=== PATIENT | female | born 1955 | race Caucasian/White ===

== ENCOUNTER 2018-04-17 18:37 | Inpatient (IN) | payer BC ==
[2018-04-17] MEDS ORDERED: KETOROLAC 60 MG/2 ML VIAL IM STA (18:57)
[2018-04-17] MEDS ORDERED: HYDROcodone/APAP 5-325MG 1 EACH TAB PO STA (18:58)
[2018-04-17] MEDS ORDERED: ORPHENADRINE 30 MG/ML 2 ML VIAL IM STA (18:58)
--- NOTE | 2018-04-17 19:01 | ED ---
Fall HPI - General Source: patient, RN notes reviewed, old records reviewed Mode of arrival: EMS <Ana Jacinto - Last Filed: 04/18/18 00:58> <Linden Ramesh - Last Filed: 04/23/18 22:41> - General Chief Complaint: Fall Stated Complaint: fall Time Seen by Provider: 04/17/18 18:43 - History of Present Illness Initial Comments: 62-year-old female presents emergency Department chief complaint of bilateral rib pain. She was cleaning her hot tub and slipped and fell off of the seat of the hot tub and landed with her mid back hitting the edge of the seat of the hot tub. Patient states that the "wind was knocked out of her". Patient states that she has pain with movement in the mid back area. Patient states that it is painful to take a full deep breath. Patient reports that she did not hit her head or neck. She denies any extremity pain or injuries. Patient states that she has no abdominal pain or chest pain. Patient denies any other symptoms besides the bilateral rib pain and mid back pain. (Ana Jacinto) - Related Data Home Medications Medication Instructions Recorded Confirmed Loratadine [Claritin] 10 mg PO DAILY PRN 04/18/18 04/18/18 Previous Rx's Medication Instructions Recorded HYDROcodone/APAP 5-325MG [[place] 1 - 2 tab PO Q6HR PRN #30 tab 04/20/18 5-325] Ibuprofen [Motrin] 800 mg PO Q8HR #30 tab 04/20/18 Methocarbamol [Robaxin] 1,000 mg PO QID #40 tab 04/20/18 Allergies Allergy/AdvReac Type Severity Reaction Status Date / Time codeine Allergy Unknown Verified 04/18/18 10:19 Review of Systems ROS Other: All systems not noted in ROS Statement are negative. <Ana Jacinto - Last Filed: 04/18/18 00:58> ROS Other: All systems not noted in ROS Statement are negative. <Linden Ramesh - Last Filed: 04/23/18 22:41> ROS Statement: Those systems with pertinent positive or pertinent negative responses have been documented in the HPI. Past Medical History Past Medical History: No Reported History History of Any Multi-Drug Resistant Organisms: None Reported Past Surgical History: No Surgical Hx Reported Past Psychological History: No Psychological Hx Reported Smoking Status: Former smoker Past Alcohol Use History: Occasional Past Drug Use History: None Reported <Ana Jacinto - Last Filed: 04/18/18 00:58> General Exam Limitations: no limitations General appearance: alert, in no apparent distress Head exam: Present: atraumatic, normocephalic, normal inspection Eye exam: Present: normal appearance, PERRL, EOMI. Absent: scleral icterus, conjunctival injection, periorbital swelling ENT exam: Present: normal exam, mucous membranes moist Neck exam: Present: normal inspection. Absent: tenderness, meningismus, lymphadenopathy Respiratory exam: Present: normal lung sounds bilaterally, chest wall tenderness (Tenderness over bilateral lower ribs.). Absent: respiratory distress, wheezes, rales, rhonchi, stridor Cardiovascular Exam: Present: regular rate, normal rhythm, normal heart sounds. Absent: systolic murmur, diastolic murmur, rubs, gallop, clicks GI/Abdominal exam: Present: soft, normal bowel sounds. Absent: distended, tenderness, guarding, rebound, rigid Extremities exam: Present: normal inspection, full ROM, normal capillary refill. Absent: tenderness, pedal edema, joint swelling, calf tenderness Back exam: Present: normal inspection Neurological exam: Present: alert, oriented X3, CN II-XII intact Psychiatric exam: Present: normal affect, normal mood <Ana Jacinto - Last Filed: 04/18/18 00:58> <Linden Ramesh - Last Filed: 04/23/18 22:41> - General Exam Comments Initial Comments: 62-year-old female. Alert and oriented. Moderate discomfort. (Ana Jacinto) Course <Ana Jacinto - Last Filed: 04/18/18 00:58> <Linden Ramesh - Last Filed: 04/23/18 22:41> Vital Signs 04/17/18 04/17/18 04/17/18 18:41 20:00 21:49 Temperature 98.1 F Pulse Rate 64 65 78 Pulse Rate [ Pulse Oximetery ] Respiratory 16 20 18 Rate Blood Pressure 159/74 149/72 153/75 Blood Pressure [Left Arm] O2 Sat by Pulse 97 98 100 Oximetry 04/17/18 04/18/18 04/18/18 22:57 00:10 00:21 Temperature 97.8 F 98.6 F Pulse Rate 71 71 Pulse Rate [ 65 Pulse Oximetery ] Respiratory 18 18 16 Rate Blood Pressure 128/65 131/65 Blood Pressure 157/74 [Left Arm] O2 Sat by Pulse 98 100 98 Oximetry 04/18/18 01:08 Temperature Pulse Rate 66 Pulse Rate [ Pulse Oximetery ] Respiratory 18 Rate Blood Pressure 135/65 Blood Pressure [Left Arm] O2 Sat by Pulse 100 Oximetry - Reevaluation(s) Reevaluation #1: 04/17/18 20:39 Critical value continue treating the Patient is a 15% pneumothorax. (Ana Jacinto) Reevaluation #2: 04/17/18 21:40 is transferred to trauma unit, was evaluated by on-call surgeon Dr. porras. He wants us to contact cardiothoracic surgery. (Ana Jacinto) Procedures - Chest Tube Insertion Side of Procedure: right Indication: Pneumothorax Placed on monitor/pulse oximetry: Yes Site Prep: Chloroprep Local Anesthesia: Lidocaine 1% Amount (mLs): 10 Insertion Site: Other (2nd intercostal space) Scalpel: #11 Repeat X-ray Results: Lung Inflated Patient Tolerated Procedure: well <Ana Jacinto - Last Filed: 04/18/18 00:58> - Chest Tube Insertion Consent Obtained: written consent Time Out Performed: Yes Side of Procedure: right Indication: Pneumothorax Placed on monitor/pulse oximetry: Yes Site Prep: Chloroprep Local Anesthesia: Lidocaine 1% Insertion Site: Other Scalpel: #11 Tube Size (Khmer): Other (Thoravent) Returns: Air Attached to Suction: Yes Type of Suction: Pleuravac Repeat X-ray Results: Lung Inflated Patient Tolerated Procedure: well <Linden Ramesh - Last Filed: 04/23/18 22:41> Medical Decision Making - Lab Data Result diagrams: 04/17/18 20:48 04/17/18 20:48 - Radiology Data Radiology results: report reviewed <Ana Jacinto - Last Filed: 04/18/18 00:58> - Lab Data Result diagrams: 04/17/18 20:48 04/17/18 20:48 <Linden Ramesh - Last Filed: 04/23/18 22:41> - Medical Decision Making Patient is a 62-year-old female presents emergency Department after she slipped and fell in a hot tub. Her mid back hit the seat of the hot tub. Patient has significant pain and tenderness over the right ribs. Patient chest x-ray shows a 15% pneumothorax. A stretcher in the trauma bay and I discussed case Dr. Sandoval. We then discussed with on-call surgeon Dr. porras also evaluated the Patient. He wanted a CT abdomen and pelvis. CT abdomen and pelvis shows evidence of comminuted ninth rib fracture and again the 15% pneumothorax. We consulted the cardio thoracic surgeon. Recommended a Thoravent. Dr. Ramesh placed thoravent. Patient was admitted to Dr. Son with consults to Dr. García, cardiothoracic surgery. (Ana Jacinto) I assisted in managing this case by placing the thoravent tube. Head discussion of risks and benefits as well as indications. Patient gives consent. Anterior chest wall is prepped and draped. Small spencer in the skin made with # 11 scalpel. Needle introduced in the second intercostal space midclavicular line, in the standard fashion. When the indicator changed to indicate entry, the catheter advanced while the needle withdrawn. Tube secured. Patient tolerated procedure well. Post placement x-ray reviewed. The tube then ordered to suction, through the Pleur-evac unit, to raise the lung. Patient admitted. (Linden Ramesh) - Lab Data Lab Results 04/17/18 04/17/18 Range/Units 20:48 20:48 WBC 12.6 H (3.8-10.6) k/uL RBC 4.82 (3.80-5.40) m/uL Hgb 15.6 (11.4-16.0) gm/dL Hct 45.1 (34.0-46.0) % MCV 93.6 (80.0-100.0) fL MCH 32.3 (25.0-35.0) pg MCHC 34.5 (31.0-37.0) g/dL RDW 13.4 (11.5-15.5) % Plt Count 214 (150-450) k/uL Neutrophils % 87 % Lymphocytes % 7 % Monocytes % 5 % Eosinophils % 1 % Basophils % 0 % Neutrophils # 11.0 H (1.3-7.7) k/uL Lymphocytes # 0.8 L (1.0-4.8) k/uL Monocytes # 0.6 (0-1.0) k/uL Eosinophils # 0.1 (0-0.7) k/uL Basophils # 0.0 (0-0.2) k/uL Sodium 143 (137-145) mmol/L Potassium 4.6 (3.5-5.1) mmol/L Chloride 105 (98-107) mmol/L Carbon Dioxide 24 (22-30) mmol/L Anion Gap 14 mmol/L BUN 12 (7-17) mg/dL Creatinine 0.65 (0.52-1.04) mg/dL Est GFR (CKD-EPI)AfAm >90 (>60 ml/min/1.73 sqM) Est GFR (CKD-EPI)NonAf >90 (>60 ml/min/1.73 sqM) Glucose 148 H (74-99) mg/dL Calcium 9.3 (8.4-10.2) mg/dL Total Bilirubin 0.6 (0.2-1.3) mg/dL AST 38 H (14-36) U/L ALT 32 (9-52) U/L Alkaline Phosphatase 44 (38-126) U/L Total Protein 7.1 (6.3-8.2) g/dL Albumin 4.2 (3.5-5.0) g/dL 04/17/18 21:59 EKG shows normal sinus rhythm, normal EKG. Ventricular rate of 72 bpm. Was 136. QRS ration 82. QT QTc is 410/448. (Ana Jacinto) - Radiology Data Thoracic spine X-ray shows no fractures. Right-sided pneumothorax estimated 15%. Chest x-ray and rib x-ray shows acute right-sided pneumothorax estimated 15%. Would advise follow-up S to further characterize over time. Comminuted ninth rib fracture. Mild right-sided pneumothorax. No evidence of traumatic injuries in the abdomen pelvis patchy atelectasis in the right lung. Exam discussed at 10:30 PM. After for a VAC placement x-ray shows no evidence of 5% pneumothorax. (Ana Jacinto) Disposition Is patient prescribed a controlled substance at d/c from ED?: No When asked, does pt state using other controlled substances?: No If prescribed controlled substance>3 days was MAPS reviewed?: No If opioid is for acute pain is fill amount 7 days or less?: No If Rx opioid, was Start Talking consent form obtained?: No Time of Disposition: 23:42 <Ana Jacinto - Last Filed: 04/18/18 00:58> <Linden Ramesh - Last Filed: 04/23/18 22:41> Clinical Impression: Pneumothorax on right, Fall, Rib fracture Disposition: ADMITTED IP TO THIS HOSP Condition: Good
--- NOTE | 2018-04-17 20:34 | XR ---
PROCEDURE: XR ribs bilat w iker chest xray, total 9 views DATE AND TIME: 04/17/2018 8:00 PM REFERRING PHYSICIAN: Ana Jacinto CLINICAL INDICATION: PHH, Pain after trauma TECHNIQUE: Total 9 views. COMPARISON: None FINDINGS: There is a right-sided pneumothorax estimated at approximately 15%. There is no right-sided pleural effusion. There is no definite right-sided fracture. Results discussed with the ordering pro vider, in order to ensure intact communications. Remainder of the skeletal structures are negative for fracture or malalignment. No other radiographic findings. IMPRESSION: Acute right-sided pneumothorax, estimated at 15% at this time. Would advise follow-up radiographs to further characterize over time.
--- NOTE | 2018-04-17 20:36 | XR ---
PROCEDURE: XR thoracic spine - 4V DATE AND TIME: 04/17/2018 8:01 PM REFERRING PHYSICIAN: Ana Jacinto CLINICAL INDICATION: PHH, fall TECHNIQUE: Department protocol. COMPARISON: None FINDINGS: There is a right-sided pneumothorax, estimated at approximately 15%. This result was called to the ordering provider just now, in order to ensure intact indications. There is no evident spinal fracture or malalignment. Remainder of the visualized skeletal structures are negative for acute findings. The soft tissues are unremarkable. IMPRESSION: Right-sided pneumothorax, estimated at 15%.
[2018-04-17] MEDS ORDERED: RX INFO: IV CONTRAST WAS GIVEN 1 EACH MISC MISCELLANE PRN (21:38)
[2018-04-17 22:09] LABS: Basophils % (A) 0 %; Eosinophils # (A) 0.1 k/uL (0-0.7); Eosinophils % (A) 1 %; HCT 45.1 % (34.0-46.0); HGB 15.6 gm/dL (11.4-16.0); Lymphocytes # (A) 0.8 k/uL (1.0-4.8); Lymphocytes % (A) 7 %; MCH 32.3 pg (25.0-35.0); MCHC 34.5 g/dL (31.0-37.0); MCV 93.6 fL (80.0-100.0); Monocytes # (A) 0.6 k/uL (0-1.0); Monocytes % (A) 5 %; Neutrophils % (A) 87 %; Platelet Count 214 k/uL (150-450); RBC 4.82 m/uL (3.80-5.40); RDW 13.4 % (11.5-15.5); WBC 12.6 k/uL (3.8-10.6)
[2018-04-17 22:17] LABS: Albumin 4.2 g/dL (3.5-5.0); Anion Gap 14 mmol/L; Calcium 9.3 mg/dL (8.4-10.2); Carbon Dioxide 24 mmol/L (22-30); Chloride 105 mmol/L (98-107); Glucose 148 mg/dL (74-99); Sodium 143 mmol/L (137-145); Total Bilirubin 0.6 mg/dL (0.2-1.3); Total Protein 7.1 g/dL (6.3-8.2)
[2018-04-17 22:18] LABS: ALT 32 U/L (9-52); AST 38 U/L (14-36); Alkaline Phosphatase 44 U/L (38-126); Blood Urea Nitrogen 12 mg/dL (7-17); Potassium 4.6 mmol/L (3.5-5.1)
--- NOTE | 2018-04-17 22:34 | CT ---
EXAMINATION TYPE: CT ChestAbdPelvis w con DATE OF EXAM: 04/17/2018 COMPARISON: NONE HISTORY: Right side abdominal pain after fall injury CT DLP: 1618 mGycm Automated exposure control for dose reduction was used. CONTRAST: CT scan of the chest, abdomen and pelvis is performed without Oral Contrast and with IV Contrast, pat ient injected with 100 mL of Isovue 300. FINDINGS: There is a right-sided pneumothorax of approximately 15%. There is atelectasis at the right posterior lung base and also at the right lung apex. The left lung is clear of consolidation. There is no pleu ral effusion. Heart size is normal. Thoracic aorta is intact. There is no evidence of aneurysm or dis section. There is no evidence of leakage. There is no pericardial effusion. There are no hilar masses . There is 9 mm cyst in the superior right lobe of the liver. Gallbladder appears normal. Bile ducts ar e not dilated. Spleen and pancreas appear normal. There is no adrenal mass. Kidneys show satisfactory contrast opacification. There is no hydronephrosis. There is no free fluid in the abdomen. Bladder d istends smoothly. I see no intestinal wall thickening. There are no dilated loops. There is no sign o f pneumoperitoneum. Thoracic and lumbar spine appear intact. The clavicles appear intact. There is no ndisplaced comminuted fracture right posterior ninth rib. IMPRESSION: Comminuted posterior right ninth rib fracture. Mild right-sided pneumothorax. No evidence of traumatic injury within the abdomen and pelvis. Patchy atelectasis in the right lung. This exam w as discussed with ER physician at 10:30 PM.
[2018-04-17] MEDS ORDERED: NALOXONE 0.4 MG/ML 1 ML VIAL IV PRN (23:43)
[2018-04-17] MEDS ORDERED: MORPHINE SULFATE 4 MG/ML SYRINGE IV PRN (23:43)
[2018-04-17] MEDS ORDERED: ACETAMINOPHEN TAB 325 MG TAB PO PRN (23:43)
[2018-04-17] MEDS ORDERED: LORazepam 2 MG/ML INJ IV PRN (23:43)
[2018-04-17] MEDS ORDERED: IBUPROFEN 400 MG TAB PO PRN (23:43)
--- NOTE | 2018-04-18 00:46 | XR ---
EXAMINATION TYPE: XR chest 1V portable DATE OF EXAM: 04/18/2018 COMPARISON: 4 hours ago HISTORY: Pneumothorax TECHNIQUE: Single frontal view of the chest is obtained. FINDINGS: There is a right-sided chest tube that appears in good position. There is small right apic al pneumothorax. Trachea is midline. Heart and mediastinum are normal. There is no sign of pleural ef fusion. There are chest leads. IMPRESSION: There is small right apical pneumothorax of approximately 5% that is less than last exam .
[2018-04-18] MEDS: HYDROcodone/APAP 5-325MG 1 EACH TAB PO PRN ×2 (01:59→15:38)
[2018-04-18] MEDS: KETOROLAC 30 MG/ML 1 ML VIAL IVP PRN ×2 (02:00→08:19)
[2018-04-18] MEDS: SODIUM CHLORIDE 0.9% 1,000 ML IV SCH ×3 (02:00→19:11)
--- NOTE | 2018-04-18 07:03 | P.GSCN ---
History of Present Illness Consult date: 04/18/18 Reason for Consult: Right-sided traumatic pneumothorax, status post thoravent placement by the emergency room physicians Requesting physician: Ana Jacinto History of present illness: This is a 62-year-old female patient who does not follow with a primary care physician on a regular basis. She has no documented medical history except previous tobacco dependence, she quit smoking 5 years ago. She was at home cleaning her hot tub, fell and hit her back, and developed severe back pain with shortness of breath. She presented to the emergency room at [facility] and was found to have a ninth rib fracture as well as a right-sided pneumothorax, approximately 15%. A thoravent was placed in the emergency room with almost complete resolution of her pneumothorax. She was admitted for thoravent management and pain control. Dr. García from cardiothoracic surgery was consulted for management. Review of Systems 14 point review of systems was completed and was negative except as noted. 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, 2002 LUMPECTOMY RIGHT BREAST Past Psychological History: No Psychological Hx Reported Smoking Status: Former smoker Past Alcohol Use History: Occasional Past Drug Use History: None Reported Medications and Allergies Home Medications Medication Instructions Recorded Confirmed Type Loratadine [Claritin] 10 mg PO DAILY PRN 04/18/18 04/18/18 History Allergies Allergy/AdvReac Type Severity Reaction Status Date / Time codeine Allergy Unknown Verified 04/18/18 10:19 Surgical - Exam Vital Signs Temp Pulse Resp BP Pulse Ox 98.1 F 64 16 159/74 97 04/17/18 18:41 04/17/18 18:41 04/17/18 18:41 04/17/18 18:41 04/17/18 18:41 - General well developed, well nourished, no distress, moderate pain, obese - Eyes PERRL, normal ocular movement - ENT no hearing loss - Neck no masses, no bruits, trachea midline - Respiratory Lungs sounds clear bilaterally. Respirations even, nonlabored. Currently on 2 L nasal cannula with oxygen saturation 98%. Right-sided thoravent in place, connected to Pleur-evac to -20 m wall suction. No drainage in the Pleur-evac. No air leak currently present. - Cardiovascular S1, S2 present. Regular rate and rhythm. Normal sinus rhythm on EKG. Palpable peripheral pulses bilaterally. No edema present. No calf pain or tenderness noted. - Abdomen Abdomen: soft, non tender, bowel sounds - Genitourinary Deferred - Rectum Deferred - Integumentary Skin is warm and dry with evidence of good perfusion. - Neurologic normal coordination, normal sensation - Psychiatric oriented to time, oriented to person, oriented to place, speech is normal, memory intact Results - Labs 04/17/18 20:48 04/17/18 20:48 Abnormal Lab Results - Last 24 Hours (Table) 04/17/18 04/17/18 Range/Units 20:48 20:48 WBC 12.6 H (3.8-10.6) k/uL Neutrophils # 11.0 H (1.3-7.7) k/uL Lymphocytes # 0.8 L (1.0-4.8) k/uL Glucose 148 H (74-99) mg/dL AST 38 H (14-36) U/L Diabetes panel 04/17/18 Range/Units 20:48 Sodium 143 (137-145) mmol/L Potassium 4.6 (3.5-5.1) mmol/L Chloride 105 (98-107) mmol/L Carbon Dioxide 24 (22-30) mmol/L BUN 12 (7-17) mg/dL Creatinine 0.65 (0.52-1.04) mg/dL Glucose 148 H (74-99) mg/dL Calcium 9.3 (8.4-10.2) mg/dL AST 38 H (14-36) U/L ALT 32 (9-52) U/L Alkaline Phosphatase 44 (38-126) U/L Total Protein 7.1 (6.3-8.2) g/dL Albumin 4.2 (3.5-5.0) g/dL Calcium panel 04/17/18 Range/Units 20:48 Calcium 9.3 (8.4-10.2) mg/dL Albumin 4.2 (3.5-5.0) g/dL Pituitary panel 04/17/18 Range/Units 20:48 Sodium 143 (137-145) mmol/L Potassium 4.6 (3.5-5.1) mmol/L Chloride 105 (98-107) mmol/L Carbon Dioxide 24 (22-30) mmol/L BUN 12 (7-17) mg/dL Creatinine 0.65 (0.52-1.04) mg/dL Glucose 148 H (74-99) mg/dL Calcium 9.3 (8.4-10.2) mg/dL Adrenal panel 04/17/18 Range/Units 20:48 Sodium 143 (137-145) mmol/L Potassium 4.6 (3.5-5.1) mmol/L Chloride 105 (98-107) mmol/L Carbon Dioxide 24 (22-30) mmol/L BUN 12 (7-17) mg/dL Creatinine 0.65 (0.52-1.04) mg/dL Glucose 148 H (74-99) mg/dL Calcium 9.3 (8.4-10.2) mg/dL Total Bilirubin 0.6 (0.2-1.3) mg/dL AST 38 H (14-36) U/L ALT 32 (9-52) U/L Alkaline Phosphatase 44 (38-126) U/L Total Protein 7.1 (6.3-8.2) g/dL Albumin 4.2 (3.5-5.0) g/dL - Imaging Chest x-ray: report reviewed, image reviewed CT scan - abdomen: report reviewed, image reviewed CT scan - chest: report reviewed, image reviewed CT scan - pelvis: report reviewed, image reviewed EKG: image reviewed Assessment and Plan (1) Fall Current Visit: Yes Status: Acute Code(s): W19.XXXA - UNSPECIFIED FALL, INITIAL ENCOUNTER SNOMED Code(s): 8750258 (2) Pneumothorax on right Current Visit: Yes Status: Acute Code(s): J93.9 - PNEUMOTHORAX, UNSPECIFIED SNOMED Code(s): 335304831 (3) Rib fracture Current Visit: Yes Status: Acute Code(s): S22.39XA - FRACTURE OF ONE RIB, UNSP SIDE, INIT FOR CLOS FX SNOMED Code(s): 72104915 Plan: The patient was seen and examined at the bedside. Chart/diagnostics were reviewed. At this time we will discontinue atrium, cap thoravent. Will repeat chest x-ray. When there is complete resolution of her pneumothorax we will discontinue the thoravent. Pain management per ordered medications. Incentive spirometry ordered and should be encouraged 10 times every hour. Encourage continued smoking cessation. SCDs ordered for DVT prophylaxis. We will continue to monitor and follow closely. Thank you for this consult. Please call if you have any questions. Time with Patient: Greater than 30
[2018-04-18] MEDS: PANTOPRAZOLE 40 MG/10 ML VIAL IV SCH (08:14)
--- NOTE | 2018-04-18 08:36 | XR ---
EXAMINATION TYPE: XR chest 2V DATE OF EXAM: 04/18/2018 COMPARISON: Prior chest 04/18/2018 HISTORY: Chest tube, pneumothorax TECHNIQUE: Frontal and lateral views of the chest are obtained. FINDINGS: Right-sided chest tube is in place. Small apical pneumothorax persists. No sizable effusio n. Cardiomediastinal silhouette, pulmonary vascularity and jac within normal limits. IMPRESSION: Similar findings to prior exam. Small right apical pneumothorax, right-sided chest tube.
--- NOTE | 2018-04-18 13:26 | P.GSHP ---
History of Present Illness H&P Date: 04/17/18 (Patient seen at 2100 on 04/17) Chief Complaint: Fall from standing This is a 62-year-old female who presented to the emergency room after a fall which she hit her right flank on the way down on her hot tub or she was draining it. She denies any head trauma. She denies any loss of consciousness. GCS of 15. She was evaluated by the ER physician as she is complaining of right flank pain and cramping. On chest x-ray she was noted to have a 15% right-sided pneumothorax. No other injuries were noted at that time. 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 No significant issues noted on an osteopathic structural exam other than those noted in the History and Physical/Consult. Vital Signs Temp Pulse Resp BP Pulse Ox 98.1 F 64 16 159/74 97 04/17/18 18:41 04/17/18 18:41 04/17/18 18:41 04/17/18 18:41 04/17/18 18:41 - General well developed, well nourished, no distress - ENT normal mucosa - Neck trachea midline - Respiratory normal expansion, normal respiratory effort - Cardiovascular Distal pulses palpable for extremities Rhythm: regular - Abdomen Abdomen: soft, non tender - Neurologic normal coordination, normal sensation - Psychiatric oriented to time, oriented to person, oriented to place, memory intact Results - Labs 04/17/18 20:48 04/17/18 20:48 Abnormal Lab Results - Last 24 Hours (Table) 04/17/18 04/17/18 Range/Units 20:48 20:48 WBC 12.6 H (3.8-10.6) k/uL Neutrophils # 11.0 H (1.3-7.7) k/uL Lymphocytes # 0.8 L (1.0-4.8) k/uL Glucose 148 H (74-99) mg/dL AST 38 H (14-36) U/L Diabetes panel 04/17/18 Range/Units 20:48 Sodium 143 (137-145) mmol/L Potassium 4.6 (3.5-5.1) mmol/L Chloride 105 (98-107) mmol/L Carbon Dioxide 24 (22-30) mmol/L BUN 12 (7-17) mg/dL Creatinine 0.65 (0.52-1.04) mg/dL Glucose 148 H (74-99) mg/dL Calcium 9.3 (8.4-10.2) mg/dL AST 38 H (14-36) U/L ALT 32 (9-52) U/L Alkaline Phosphatase 44 (38-126) U/L Total Protein 7.1 (6.3-8.2) g/dL Albumin 4.2 (3.5-5.0) g/dL Calcium panel 04/17/18 Range/Units 20:48 Calcium 9.3 (8.4-10.2) mg/dL Albumin 4.2 (3.5-5.0) g/dL Pituitary panel 04/17/18 Range/Units 20:48 Sodium 143 (137-145) mmol/L Potassium 4.6 (3.5-5.1) mmol/L Chloride 105 (98-107) mmol/L Carbon Dioxide 24 (22-30) mmol/L BUN 12 (7-17) mg/dL Creatinine 0.65 (0.52-1.04) mg/dL Glucose 148 H (74-99) mg/dL Calcium 9.3 (8.4-10.2) mg/dL Adrenal panel 04/17/18 Range/Units 20:48 Sodium 143 (137-145) mmol/L Potassium 4.6 (3.5-5.1) mmol/L Chloride 105 (98-107) mmol/L Carbon Dioxide 24 (22-30) mmol/L BUN 12 (7-17) mg/dL Creatinine 0.65 (0.52-1.04) mg/dL Glucose 148 H (74-99) mg/dL Calcium 9.3 (8.4-10.2) mg/dL Total Bilirubin 0.6 (0.2-1.3) mg/dL AST 38 H (14-36) U/L ALT 32 (9-52) U/L Alkaline Phosphatase 44 (38-126) U/L Total Protein 7.1 (6.3-8.2) g/dL Albumin 4.2 (3.5-5.0) g/dL - Imaging Chest x-ray: report reviewed, image reviewed Assessment and Plan Assessment: Fall from standing, right-sided pneumothorax Plan: I discussion with the patient the patient's and the ER physician regarding her workup. Recommended CT chest abdomen and pelvis to further evaluate for injury given that she's having right flank pain. ER physician to place thoravent. Cardiothoracic surgery consult regarding pneumothorax and chest tube/thoravent management
--- NOTE | 2018-04-18 13:31 | P.PN ---
Subjective Progress Note Date: 04/18/18 Principal diagnosis: Fall from standing Patient is doing well this morning she has small residual apical pneumothorax. Thoravent was placed last night by ER physician. She is sitting up in bed tolerating a regular diet. She complains of muscle spasms on her right flank. She's pulling 1 L on incentive spirometry. She is having some pain with coughing. She refused her [place] this morning. Objective - Vital Signs Vital signs: Vital Signs Temp 98.3 F 04/18/18 05:30 Pulse 69 04/18/18 05:30 Resp 16 04/18/18 05:30 BP 139/75 04/18/18 05:30 Pulse Ox 99 04/18/18 08:16 Intake & Output 04/17/18 04/18/18 04/18/18 18:59 06:59 18:59 Weight 86.183 kg Other: Voiding Method Toilet Toilet # Voids 1 - Constitutional General appearance: Present: cooperative - Respiratory Details: Nonlabored breathing - Cardiovascular Rhythm: regular - Gastrointestinal Gastrointestinal Comment(s): Soft nontender nondistended - Psychiatric Psychiatric: Present: A&O x's 3 - Labs CBC & Chem 7: 04/17/18 20:48 04/17/18 20:48 Labs: Abnormal Lab Results - Last 24 Hours (Table) 04/17/18 04/17/18 Range/Units 20:48 20:48 WBC 12.6 H (3.8-10.6) k/uL Neutrophils # 11.0 H (1.3-7.7) k/uL Lymphocytes # 0.8 L (1.0-4.8) k/uL Glucose 148 H (74-99) mg/dL AST 38 H (14-36) U/L Assessment and Plan Assessment: Right-sided posterior ninth rib fracture, pneumothorax status post thoravent placement Plan: Pain control via Toradol, [place], Robaxin. I discussed with the patient the importance of deep breathing coughing and incentive spirometry. I discussed with her that she should take her [place] if she's having pain while coughing or difficulty coughing. There is a small residual right apical pneumothorax. Thoravent and pneumothorax are being managed for CT surgery appreciate recommendations.
[2018-04-18] MEDS: METHOCARBAMOL 500 MG TAB PO PRN ×2 (15:17→21:10)
[2018-04-19] MEDS: HYDROcodone/APAP 5-325MG 1 EACH TAB PO PRN ×4 (00:50→18:17)
[2018-04-19] MEDS: SODIUM CHLORIDE 0.9% 1,000 ML IV SCH ×3 (06:00→20:18)
[2018-04-19] MEDS: METHOCARBAMOL 500 MG TAB PO PRN ×2 (06:03→14:56)
--- NOTE | 2018-04-19 07:46 | XR ---
EXAMINATION TYPE: XR chest 2V DATE OF EXAM: 04/19/2018 COMPARISON: Prior chest 04/18/2018 HISTORY: Right pneumothorax and chest tube TECHNIQUE: Frontal and lateral views of the chest are obtained. FINDINGS: Right-sided pleural drainage catheter is stable. Small apical pneumothorax persists. Minim al blunting of the posterior costophrenic angle is noted. No significant interval change. IMPRESSION: Stable right apical pneumothorax. There may be small effusion or basilar atelectasis, fo llow-up.
[2018-04-19] MEDS: LIDOCAINE 5% PATCH TOPICAL SCH (08:26)
[2018-04-19] MEDS: PANTOPRAZOLE 40 MG/10 ML VIAL IV SCH (08:26)
[2018-04-19] MEDS: KETOROLAC 30 MG/ML 1 ML VIAL IVP PRN ×2 (09:50→14:56)
--- NOTE | 2018-04-19 16:27 | P.PN ---
Subjective Progress Note Date: 04/19/18 Principal diagnosis: Fall from standing, right pneumothorax, right sided posterior ninth rib fracture , history of tobacco dependence quit 5 years ago. The patient was recently cleaning her hot tub and subsequently slipped and fell and landed on her back. She had complaints of shortness of breath and severe back pain post-fall. She presented to the emergency department here at [facility] and was subsequently diagnosed with a ninth rib fracture and a right sided pneumothorax. Subsequently a right Thoravent was placed in the emergency department with resolution of her pneumothorax. She is currently sitting up to the bedside chair, in no acute distress. She is complaining of episodes of back spasms to her right mid back. Denies any complaints of shortness of breath this time. Her right Thoravent tube remains in place to her anterior chest with no air leak present. She is achieving 1500 mL on her incentive spirometry, her oxygen saturations are 94% on room air. Objective - Vital Signs Vital signs: Vital Signs Temp 97.7 F 04/19/18 05:00 Pulse 64 04/19/18 05:00 Resp 16 04/19/18 05:00 BP 134/74 04/19/18 05:00 Pulse Ox 94 L 04/19/18 05:00 Intake & Output 04/18/18 04/19/18 04/19/18 18:59 06:59 18:59 Intake Total 1860 Balance 1860 Intake: Intake, IV Titration 1320 Amount Sodium Chloride 0.9% 1, 1320 000 ml @ 120 mls/hr IV . Q8H20M [facility] Rx#:[id number] Oral 540 Other: Voiding Method Toilet Toilet Toilet # Voids 3 1 - Constitutional General appearance: Present: cooperative, no acute distress, obese - Respiratory Details: Lung sounds are essentially clear throughout. Respirations are symmetrical and nonlabored. Oxygen saturation are 94% on room air. She is achieving 1500 mL on her incentive spirometry. - Cardiovascular Details: Regular rhythm and rate. S1 and S2 present, negative for S3, gallop or murmur. No edema present. - Gastrointestinal Gastrointestinal Comment(s): Abdomen is soft, nontender and nondistended. Active bowel sounds to all 4 abdominal quadrants. No guarding or rigidity. - Genitourinary Genitourinary Comment(s): Voiding clear yellow urine. - Integumentary Integumentary Comment(s): Skin is warm and dry. No clubbing or cyanosis present. No abnormal pigmentation or rash present. - Neurologic Neurologic: Present: CNII-XII intact - Musculoskeletal Musculoskeletal: Present: gait normal, strength equal bilaterally - Psychiatric Psychiatric: Present: A&O x's 3, appropriate affect, intact judgment & insight - Allied health notes Allied health notes reviewed: nursing - Labs CBC & Chem 7: 04/17/18 20:48 04/17/18 20:48 - Imaging and Cardiology Chest x-ray: report reviewed, image reviewed Assessment and Plan (1) Fall from standing Current Visit: Yes Status: Acute Code(s): W19.XXXA - UNSPECIFIED FALL, INITIAL ENCOUNTER SNOMED Code(s): 5690240 (2) Pneumothorax on right Current Visit: Yes Status: Acute Code(s): J93.9 - PNEUMOTHORAX, UNSPECIFIED SNOMED Code(s): 358004140 (3) Rib fracture Current Visit: Yes Status: Acute Code(s): S22.39XA - FRACTURE OF ONE RIB, UNSP SIDE, INIT FOR CLOS FX SNOMED Code(s): 89560224 Plan: 1. We keep her right Thoravent in place today capped. 2. Pain management per when necessary orders. 3. Encourage use of her incentive spirometry every hour while awake. 4. Increase activity as tolerated. 5. GI and DVT prophylaxis. 6. More recommendations to follow based on patient's clinical course. Time with Patient: Greater than 30
[2018-04-19] MEDS: ONDANSETRON 4 MG/2 ML VIAL IVP PRN (17:40)
[2018-04-19] MEDS: HEPARIN SODIUM,PORCINE 5,000 UNIT/ML 1 ML VIAL SQ SCH (20:42)
[2018-04-19 23:02] VITALS: RESP 16
--- NOTE | 2018-04-19 23:03 | P.PN ---
Subjective Principal diagnosis: Fall from standing right pneumothorax and rib fractures Patient is doing well this afternoon, pain is better controlled, she is pulling 1500 to 2000 on IS. tboravent is capped. Objective - Vital Signs Vital signs: Vital Signs Temp 98.3 F 04/19/18 15:00 Pulse 69 04/19/18 15:00 Resp 18 04/19/18 15:00 BP 141/71 04/19/18 15:00 Pulse Ox 95 04/19/18 15:00 Intake & Output 04/19/18 04/19/18 04/20/18 06:59 18:59 06:59 Intake Total 1860 80 Output Total 0 0 Balance 1860 0 80 Intake: IV 80 .9@20 80 Intake, IV Titration 1320 Amount Sodium Chloride 0.9% 1, 1320 000 ml @ 120 mls/hr IV . Q8H20M [facility] Rx#:[id number] Oral 540 Output: Chest Tube Drainage 0 0 Thora-Vent 0 0 Other: Voiding Method Toilet Toilet Toilet # Voids 1 3 - Constitutional General appearance: Present: average body habitus, cooperative - Respiratory Details: nonlabored - Cardiovascular Rhythm: regular - Gastrointestinal Gastrointestinal Comment(s): s/nt/nd - Psychiatric Psychiatric: Present: A&O x's 3 - Labs CBC & Chem 7: 04/17/18 20:48 04/17/18 20:48 Assessment and Plan Assessment: Right-sided posterior ninth rib fracture, pneumothorax status post thoravent placement Plan: Pain control via Toradol, [place], Robaxin.. Thoravent and pneumothorax are being managed for CT surgery appreciate recommendations.
[2018-04-20] MEDS: KETOROLAC 30 MG/ML 1 ML VIAL IVP PRN ×2 (00:19→06:47)
[2018-04-20] MEDS: HYDROcodone/APAP 5-325MG 1 EACH TAB PO PRN ×2 (00:20→05:51)
[2018-04-20] MEDS ORDERED: METHOCARBAMOL 500 MG TAB ONE (01:25)
[2018-04-20] MEDS: SODIUM CHLORIDE 0.9% 1,000 ML IV SCH ×2 (05:53→10:03)
[2018-04-20 06:18] VITALS: BP 105/64; PULSE 72; TEMP 98.2
[2018-04-20] MEDS: HEPARIN SODIUM,PORCINE 5,000 UNIT/ML 1 ML VIAL SQ SCH (07:26)
[2018-04-20] MEDS: ONDANSETRON 4 MG/2 ML VIAL IVP PRN (07:26)
[2018-04-20] MEDS: LIDOCAINE 5% PATCH TOPICAL SCH (07:26)
[2018-04-20] MEDS ORDERED: PANTOPRAZOLE 40 MG TABLET PO SCH (07:30)
--- NOTE | 2018-04-20 07:47 | XR ---
EXAMINATION TYPE: XR chest 2V DATE OF EXAM: 04/20/2018 COMPARISON: Prior chest 04/19/2018 HISTORY: Pneumothorax, chest tube TECHNIQUE: Frontal and lateral views of the chest are obtained. FINDINGS: Right-sided thoracic vent is present with appearance similar to prior exam. Small apical p neumothorax thought to have resolved, tip of the catheter courses posteriorly along the right chest w all. No pleural effusion. No significant interval change. IMPRESSION: Apical pneumothorax thought to have resolved. Chest tube in place.
--- NOTE | 2018-04-20 09:52 | P.PN ---
Subjective Progress Note Date: 04/20/18 Principal diagnosis: Right-sided pneumothorax, right-sided posterior ninth rib fracture, all from standing, previous tobacco dependence. POD #3 Thoravent placement by the emergency room physicians. Patient's currently ambulating in room in no acute distress. States pain is controlled on current pain medication. Denies shortness of breath. Objective - Vital Signs Vital signs: Vital Signs Temp 98.2 F 04/20/18 05:30 Pulse 72 04/20/18 05:30 Resp 16 04/20/18 05:30 BP 105/64 04/20/18 05:30 Pulse Ox 93 L 04/20/18 05:30 Intake & Output 04/19/18 04/20/18 04/20/18 18:59 06:59 18:59 Intake Total 240 Output Total 0 0 0 Balance 0 240 0 Intake: IV 240 .9@20 240 Output: Chest Tube Drainage 0 0 0 Thora-Vent 0 0 0 Other: Voiding Method Toilet Toilet # Voids 3 - Constitutional General appearance: Present: cooperative, no acute distress - Respiratory Details: Lungs sounds clear bilaterally. Respirations even, nonlabored. Currently on room air with oxygen saturation 93%. Right-sided thoravent present, no air leak present. - Cardiovascular Details: S1, S2 present. Regular rate and rhythm. Palpable peripheral pulses bilaterally. No edema present. No calf pain or tenderness noted. - Gastrointestinal Gastrointestinal Comment(s): Abdomen soft, nontender, nondistended. Active bowel sounds 4 quadrants. Tolerating diet. - Genitourinary Genitourinary Comment(s): Continues to void clear, yellow urine. - Integumentary Integumentary Comment(s): Skin is warm and dry with evidence of good perfusion. - Neurologic Neurologic: Present: CNII-XII intact - Musculoskeletal Musculoskeletal: Present: gait normal, strength equal bilaterally - Psychiatric Psychiatric: Present: A&O x's 3, appropriate affect, intact judgment & insight - Allied health notes Allied health notes reviewed: nursing - Labs CBC & Chem 7: 04/17/18 20:48 04/17/18 20:48 - Imaging and Cardiology Chest x-ray: report reviewed, image reviewed Assessment and Plan (1) Fall Current Visit: Yes Status: Acute Code(s): W19.XXXA - UNSPECIFIED FALL, INITIAL ENCOUNTER SNOMED Code(s): 9772129 (2) Pneumothorax on right Current Visit: Yes Status: Acute Code(s): J93.9 - PNEUMOTHORAX, UNSPECIFIED SNOMED Code(s): 896083061 (3) Rib fracture Current Visit: Yes Status: Acute Code(s): S22.39XA - FRACTURE OF ONE RIB, UNSP SIDE, INIT FOR CLOS FX SNOMED Code(s): 25027017 Plan: 1. Thoravent removed this morning. Dressing applied. Patient should leave the dressing in place for 48 hours. No lifting greater than 5-10 pounds for the next couple of weeks. 2. Encourage continued incentive spirometry use 10 times every hour while awake. 3. Encourage continued smoking cessation. 4. Pain management, medical management per primary care service. 5. Patient may be discharged to home from our standpoint. Time with Patient: Greater than 30
[2018-04-20] MEDS ORDERED: MORPHINE ORAL SOLN 10 MG/5 ML CUP PO PRN (10:14)
--- NOTE | 2018-04-20 12:26 | P.DS ---
Providers Date of admission: 04/17/18 23:16 Attending physician: Adi Elena DO Consults: 04/17/18 23:43 Consult Physician Stat Consulting Provider: Jn García Reason/Comments: Right Pneumothorax Do you want consulting provider notified?: Yes, Notify in am Primary care physician: Stated None Hospital Course: Patient presented to the hospital after a fall hitting her right flank. She was found to have pneumothorax and fractured rib on that side. Thoravent was placed in ED and CT surgery was consulted. Patient was admitted for pain control and pneumothorax. On 04/20/18 patient was tolerating regular diet, pain was well controlled on PO meds and thoravent was removed per CT surgery. She was cleared for discharge per CT surgery and was discharged home in stable condition with instructions to follow up in 1-2 weeks or as needed. She was told to return to hospital if she experiences chest pain or SOB. / Patient Condition at Discharge: Good Plan - Discharge Summary Discharge Rx Participant: No New Discharge Prescriptions: New HYDROcodone/APAP 5-325MG [[place] 5-325] 1 - 2 tab PO Q6HR PRN #30 tab PRN Reason: Pain Ibuprofen [Motrin] 800 mg PO Q8HR #30 tab Methocarbamol [Robaxin] 1,000 mg PO QID #40 tab No Action Loratadine [Claritin] 10 mg PO DAILY PRN PRN Reason: Allergy Symptoms Discharge Medication List Loratadine [Claritin] 10 mg PO DAILY PRN 04/18/18 [History] HYDROcodone/APAP 5-325MG [[place] 5-325] 1 - 2 tab PO Q6HR PRN #30 tab 04/20/18 [ Rx] Ibuprofen [Motrin] 800 mg PO Q8HR #30 tab 04/20/18 [Rx] Methocarbamol [Robaxin] 1,000 mg PO QID #40 tab 04/20/18 [Rx] Follow up Appointment(s)/Referral(s): Adi Elena DO [Doctor of Osteopathic Medicine] - 1 Week Patient Instructions/Handouts: Hydrocodone/Acetaminophen (By mouth), Ibuprofen (By mouth), Methocarbamol (By mouth), Traumatic Pneumothorax (DC), Rib Fracture (DC), Fall Prevention (DC) Activity/Diet/Wound Care/Special Instructions: No lifting anything heavier than a gallon of milk for 2 weeks. May remove chest dressing and shower in [address] bandaid over incision until healed. Continue to use incentive spirometry.
== END 2018-04-20 16:25 | disposition home or self-care (01) | DRG 200 ==
LOC: EC 18:37 → 5MS5E 23:16
PROVIDERS: ADMIT Student in an Organized Health Care Education/Training Program; ATTEND Student in an Organized Health Care Education/Training Program
PROC: 0W9930Z Drainage of Right Pleural Cavity with Drainage Device, Percutaneous Approach (ICD-10-PCS; principal; 2018-04-17)
DX: S27.0XXA Traumatic pneumothorax, initial encounter (principal); S22.39XA Fracture of one rib, unspecified side, initial encounter for closed fracture; W01.0XXA Fall on same level from slipping, tripping and stumbling without subsequent striking against object, initial encounter; Z87.891 Personal history of nicotine dependence; R40.2142 Coma scale, eyes open, spontaneous, at arrival to emergency department; R40.2362 Coma scale, best motor response, obeys commands, at arrival to emergency department; R40.2252 Coma scale, best verbal response, oriented, at arrival to emergency department; Z88.5 Allergy status to narcotic agent
CPT/HCPCS: 32551; 36415; 71045; 71046; 71111; 71260; 72070; 74177; 80053; 85025; 93005; 94760; 96372; 99285

== ENCOUNTER 2022-09-19 16:02 | Emergency (ER) | payer BC ==
[2022-09-19 16:08] VITALS: TEMP 96.8
[2022-09-19] MEDS ORDERED: KETOROLAC 15 MG/ML 1 ML VIAL IM STA (16:28)
--- NOTE | 2022-09-19 16:38 | ED ---
General Adult HPI - General Chief complaint: Extremity Problem,Nontraumatic Stated complaint: right arm pain Time Seen by Provider: 09/19/22 16:09 Source: patient, RN notes reviewed Mode of arrival: ambulatory Limitations: no limitations - History of Present Illness Initial comments: This is a pleasant 67-year-old female presents to the emergency department for evaluation of right arm pain. Pain worsens with palpation of the right upper arm, right forearm, and dorsal surface of the right hand. Patient states she has had numbness in her right hand for the past month, however during the evening last night began experiencing significant pain in the right shoulder that radiated down the right arm. Describes pain as a burning discomfort. [facility] care where she received a steroid injection and a muscle relaxer. States she is beginning to feel relief of symptoms but is concerned about the pain worsening tonight and interfering with sleep tonight. Patient states she is [facility] the [facility]ness in her hand. 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 Denies injury, trauma, falls, or weakness. - Related Data Home Medications Medication Instructions Recorded Confirmed Loratadine [Claritin] 10 mg PO DAILY PRN 04/18/18 04/18/18 Previous Rx's Medication Instructions Recorded HYDROcodone/APAP 5-325MG [[place] 1 - 2 tab PO Q6HR PRN #30 tab 04/20/18 5-325] Ibuprofen [Motrin] 800 mg PO Q8HR #30 tab 04/20/18 methocarbamoL [Robaxin] 1,000 mg PO QID #40 tab 04/20/18 Allergies Allergy/AdvReac Type Severity Reaction Status Date / Time codeine Allergy Unknown Verified 09/19/22 16:08 Review of Systems ROS Statement: Those systems with pertinent positive or pertinent negative responses have been documented in the HPI. ROS Other: All systems not noted in ROS Statement are negative. 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 Absent: respiratory distress, wheezes, rales, rhonchi, stridor Cardiovascular Exam: Present: regular rate, normal rhythm, normal heart sounds. Absent: systolic murmur, diastolic murmur, rubs, gallop, clicks Right General: Present: other (No obvious trauma, injury, deformity, swelling, contusion, or erythema noted to the upper extremity), normal inspection Shoulder Exam: Present: normal inspection, full ROM. Absent: swelling, abrasion, tenderness over AC joint Upper Arm exam: Present: normal inspection, full ROM, tenderness (marked tenderness upon palpation of the posterolateral aspect right upper arm) Elbow exam: Present: normal inspection, full ROM. Absent: tenderness, swelling Forearm Wrist exam: Present: normal inspection, full ROM, tenderness (along radial nerve surface). Absent: pain with axial thumb loading Hand Wrist exam: Present: normal inspection, full ROM, tenderness (dorsum of hand) Neuro motor exam: Present: wrist extension intact, thumb opposition intact, fingers 2-5 abduction intact Neurosensory exam: Present: other (negativen tinel's and cary's tests. numbness along radial and median nerves.) Vascular: Present: normal capillary refill, radial pulse. Absent: vascular compromise, Pallo Neurological exam: Present: alert, oriented X3, CN II-XII intact Psychiatric exam: Present: normal affect, normal mood Skin exam: Present: warm, dry, intact, normal color. Absent: rash Course Vital Signs 09/19/22 16:03 Temperature 96.8 F L Pulse Rate 87 Respiratory 20 Rate Blood Pressure 172/87 O2 Sat by Pulse 95 Oximetry - Reevaluation(s) Reevaluation #1: 09/19/22 17:20 Upon reassessment, patient is resting more comfortably. States she still has burning discomfort though it is far more tolerable and is experiencing less throbbing pain. Discussed pain control options for tonight. Patient is agreeable with a tramadol, but will take Zofran prior. Medical Decision Making - Medical Decision Making This is a well-appearing pleasant 67-year-old female with no significant past medical history who presents to the emergency Department with complaints of atraumatic right upper arm pain that extends to the right hand. Vascular status intact. Diminished sensation across the dorsal surface of the hand extending to the first 2 digits primarily. Patient was given steroid injection and muscle relaxer by urgent care prior to arrival. Toradol was given for pain with improvement. She will be discharged home to follow-up with orthopedics as scheduled tomorrow. Encouraged to continue medication regimen previously prescribed. Was given Ultram and Zofran to take if pain worsens tonight. Return parameters discussed in detail. Patient verbalizes understanding and agrees with this plan. Attending: Benjamin. Disposition Clinical Impression: Neuropathic pain of upper extremity Disposition: HOME SELF-CARE Condition: Stable Instructions (If sedation given, give patient instructions): Arm Pain (ED) Additional Instructions: Follow-up with your orthopedist tomorrow as scheduled. Continue taking the medications as prescribed by urgent care. You were given a Tramadol for pain. Take Zofran prior to taking pain medication if needed. Return to the emergency department with any new, worsening, or concerning symptoms. Is patient prescribed a controlled substance at d/c from ED?: No Referrals: None,Stated [Primary Care Provider] - 1-2 days Time of Disposition: 17:26
[2022-09-19] MEDS ORDERED: ONDANSETRON 4 MG ODT STARTER PACK 2 TAB BTL PO STA (17:22)
[2022-09-19] MEDS ORDERED: traMADol 50 MG STARTER PACK 3 TAB BTL PO STA (17:22)
[2022-09-19 17:47] VITALS: BP 171/82; PULSE 85; RESP 15
== END 2022-09-19 17:47 | disposition home or self-care (01) ==
LOC: EC 16:02
DX: G56.91 Unspecified mononeuropathy of right upper limb (principal); Z88.5 Allergy status to narcotic agent
CPT/HCPCS: 99283; 96372; J1885; S0119

== ENCOUNTER → 2022-10-28 | Outpatient (CLI) | payer BC ==
--- NOTE | 2022-10-28 14:37 | NM ---
EXAMINATION TYPE: NM bone scan whole body DATE OF EXAM: 10/28/2022 COMPARISON: NONE HISTORY: Pain Delayed whole-body scanning was performed following the injection of 22.6 mCi Tc 99m MDP. Images acq uired 3 hours post injection. FINDINGS: Abnormal uptake involving the mandible likely related to periodontal disease. Abnormal uptake involving the shoulders likely post arthritic. Abnormal uptake involving the lower cervical, thoracic and lower lumbar spine likely degenerative. Sl ight scoliotic curvature incidentally noted. Symmetric uptake is seen throughout the elbow bilaterall y. Uptake involving the left ulnar carpal joint is nonspecific. Nonspecific uptake involving the bilateral frontal bone likely benign. IMPRESSION: 1. Abnormal uptake throughout the vertebral column likely degenerative. 2. Abnormal uptake in the shoulders greater on the right likely post arthritic. 3. abnormal uptake involving the left wrist likely are arthritic on the basis of previous trauma francia elate with x-ray as clinically warranted.
== END | disposition home or self-care (01) ==
LOC: RADNMMAIN 10:16
PROVIDERS: ATTEND Orthopaedic Surgery
DX: M43.12 Spondylolisthesis, cervical region (principal); R93.7 Abnormal findings on diagnostic imaging of other parts of musculoskeletal system
CPT/HCPCS: 78306; A9503

== ENCOUNTER → 2022-12-17 | Outpatient (CLI) | payer BC ==
--- NOTE | 2022-12-17 20:25 | PE ---
EXAMINATION TYPE: PET CT fusion skull to thigh DATE OF EXAM: 12/17/2022 CLINICAL INDICATION:Female, 67 years old with history of C79.51; TECHNIQUE: Following the intravenous administration of 11.02 mCi of F-18 FDG, whole body images are performed from the skull base to the midthigh. Images are reviewed on the computer in the coronal, axial, and sagittal planes. Reconstructed rotating images are created on independent workstation and reviewed on the computer. A non-contrast CT is performed in conjunction with the PET scan. Glucose level 89 mg/dL COMPARISON: CT 04/09/2018, PET/CT None, FINDINGS: Mediastinal SUV mean is 1.7. Hepatic parenchyma SUV mean is 2.3. SKULL BASE AND NECK: No suspicious radiotracer activity. CHEST, MEDIASTINUM, AND HILAR REGION: No suspicious radiotracer activity. ABDOMEN AND PELVIS: Scattered hepatic masses are present, Examples include: * Left hepatic lobe measuring 5.2 x 4.3 cm and max SUV 7.6. * Right hepatic lobe measuring 5.9 x 4.6 cm and max SUV 7.2 Retroperitoneal lymph nodes with increased metabolic activity example includes : * Lymph node near the bifurcation along the right common iliac chain 9 mm in short axis and max SUV 3.4. * Left periaortic lymph node measuring 7 mm in short axis and max SUV 3.4 OSSEOUS STRUCTURES: No suspicious radiotracer activity. OTHER CT: Atherosclerosis of the arterial vasculature including the coronary arteries. IMPRESSION: 1. Scattered hepatic masses new from 04/09/2018 concerning for metastatic disease. Tissue sampling re commended. No obvious primary source, given patient's history of breast cancer this would be top in t he differential. 2. Mild FDG activity within retroperitoneal lymph nodes new from 2018. Findings could be related to metastatic disease. Attention on follow-up imaging.
== END | disposition home or self-care (01) ==
LOC: RADPETMAIN 16:42
PROVIDERS: ATTEND Internal Medicine
DX: C79.51 Secondary malignant neoplasm of bone (principal); R16.0 Hepatomegaly, not elsewhere classified
CPT/HCPCS: 78815; A9552

== ENCOUNTER 2023-02-22 08:52 | Day surgery (SDC) | payer BC ==
[~2023-02-22 08:52] MED LIST: ALPRAZolam 0.5 MG TAB PO PRN
[2023-02-22] MEDS ORDERED: MICROFIBRILLAR COLLAGEN HEMOST 0.5 GM PACK TOPICAL ONE (09:00)
[2023-02-22 09:44] LABS: Mean Platelet Volume 7.6; Platelet Count 215 k/uL (150-450)
[2023-02-22 09:59] LABS: INR 1.2 (<1.2); Prothrombin Time 12.3 sec (9.0-12.0)
[2023-02-22] MEDS ORDERED: HYDROmorphone 0.5 MG/0.5 ML SYRINGE IVP PRN (10:17)
--- NOTE | 2023-02-22 11:12 | US ---
EXAMINATION TYPE: US biopsy liver DATE OF EXAM: 02/22/2023 COMPARISON: 12/17/2022 HISTORY: Liver masses The procedure was explained to the patient. The risks, complications, benefits, and alternatives wer e discussed and any questions were answered. Informed consent was obtained. Patient was placed supi ne on the CT table and prepped and draped in the usual sterile fashion. All elements of maximal barrier and sterile technique utilized. Utilizing CT guidance, an 18 gauge core biopsy needle access into the right lobe of the liver was ac hieved and two 18 gauge core sample was obtained. The patient was stable throughout the procedure an d remained stable upon discharge. IMPRESSION: 1. Successful 18 gauge core biopsy of the liver.
[2023-02-22 11:42] VITALS: TEMP 97.8
[2023-02-22 16:12] VITALS: PULSE 74; RESP 16
[2023-02-22 16:17] VITALS: BP 153/86
== END 2023-02-22 14:25 | disposition home or self-care (01) ==
LOC: RADPROMAIN 08:52
PROVIDERS: ATTEND Internal Medicine
DX: C78.7 Secondary malignant neoplasm of liver and intrahepatic bile duct (principal); C80.1 Malignant (primary) neoplasm, unspecified
CPT/HCPCS: 85049; 85610; 88342; 88307; 88341; 36415; 47000; 76942; J1170

== ENCOUNTER → 2023-03-11 | Outpatient (CLI) | payer BC ==
--- NOTE | 2023-03-14 22:06 | MR ---
EXAMINATION TYPE: MR humerus RT w/wo con DATE OF EXAM: 03/11/2023 COMPARISON: NONE HISTORY: 67-year-old female G56.31, right upper lid lesion of the radial nerve. Technique: Multiplanar, multisequence images of the right humerus were obtained before and after admi nistration of 8 mL intravenous Gadavist gadolinium contrast. FINDINGS: There is an 8 mm fusiform thickening spanning approximately 1.3 cm long along the distal third right arm just lateral to the shaft of the humerus in the distribution of the radial neurovascular bundle. This region shows avid postcontrast enhancement. There is generalized muscle atrophy. No other significant soft tissue abnormality is seen. Rotator cuff appears grossly intact. There is moderate degenerative change at the AC joint. Inferior spurring may contribute to some subacromial impingement. Glenohumeral joint is intact. No joint or bursal effusion identified. No suspicious bone marrow replacement or marrow edema. IMPRESSION: 1. Avidly enhancing, 8 mm fusiform thickening spanning approximately 1.3 cm along the distal third ri ght arm just lateral to the shaft of the humerus in the distribution of the radial neurovascular bund le. Consider a radial nerve neuroma or nerve sheath tumor. 2. Moderate AC joint OA. Inferior spurring may contribute to subacromial impingement.
== END | disposition home or self-care (01) ==
LOC: RADMRIMAIN 16:54
PROVIDERS: ATTEND Psychiatry & Neurology Neurology
DX: M19.041 Primary osteoarthritis, right hand (principal); G56.31 Lesion of radial nerve, right upper limb; G54.0 Brachial plexus disorders
CPT/HCPCS: 73220; A9585

== ENCOUNTER 2023-05-06 21:40 | Emergency (ER) | payer BC ==
[2023-05-06 22:36] VITALS: TEMP 97.9
[2023-05-06] MEDS ORDERED: KETOROLAC 15 MG/ML 1 ML VIAL IM STA (23:29)
[2023-05-07] MEDS ORDERED: ONDANSETRON 4 MG/2 ML VIAL IM STA (00:24)
[2023-05-07] MEDS ORDERED: MORPHINE SULFATE 4 MG/ML SYRINGE IM STA (00:24)
--- NOTE | 2023-05-07 00:24 | ED ---
General Adult HPI - General Chief complaint: Extremity Problem,Nontraumatic Stated complaint: Right Arm Pain, Nerve Damage Time Seen by Provider: 05/06/23 23:15 Source: patient, RN notes reviewed Mode of arrival: ambulatory - History of Present Illness Initial comments: 67-year-old female with a past medical history significant for radial nerve problem presents to the emergency department with a chief complaint of right arm pain. Patient reports twisting preformed pain that started last night. She describes the sensation as burning. She denies any recent trauma or injury. She reports that she is to see a specialist on Tuesday and she likes something for pain to get her through the . She denies any numbness, tingling, weakness in the extremity. - Related Data Home Medications Medication Instructions Recorded Confirmed Acetaminophen Tab [Tylenol Tab] 1,000 mg PO Q6HR 01/03/23 02/22/23 Ibuprofen [Motrin] 400 mg PO Q6HR PRN 01/03/23 02/22/23 Allergies Allergy/AdvReac Type Severity Reaction Status Date / Time codeine Allergy Unknown Verified 02/22/23 09:32 acetaminophen [From [place]] AdvReac Nausea & Verified 05/06/23 22:36 Vomiting hydrocodone [From [place]] AdvReac Nausea & Verified 05/06/23 22:36 Vomiting Review of Systems ROS Statement: Those systems with pertinent positive or pertinent negative responses have been documented in the HPI. ROS Other: All systems not noted in ROS Statement are negative. Past Medical History Past Medical History: Cancer Additional Past Medical History / Comment(s): right breast with radiation and chemo in 2001, previous fall with broken rib and pneumothorax requiring chest tube History of Any Multi-Drug Resistant Organisms: None Reported Past Surgical History: Breast Surgery Additional Past Surgical History / Comment(s): 2012 BENIGHN TUMOR REMOVED FROM NECK, 2001 LUMPECTOMY RIGHT BREAST, liver biopsy with cancer cells but unknown if metastasis from breast or lung Past Anesthesia/Blood Transfusion Reactions: No Reported Reaction Past Psychological History: No Psychological Hx Reported Smoking Status: Former smoker Past Alcohol Use History: Rare Past Drug Use History: None Reported - Past Family History Mother Family Medical History: Cancer Additional Family Medical History / Comment(s): uterine or cervical patient unsure General Exam - General Exam Comments Initial Comments: General: Alert, in no acute distress Head: atraumatic normocephalic. Eyes PERRL, EOMI intact, mucous membranes moist Respiratory: Lungs clear to auscultation bilaterally Cardiovascular: Heart rate regular rate and rhythm Abdominal: Soft without guarding or rebound Extremities: Normal inspection with full range of motion and normal capillary refill Neuroogic: alert and oriented 3, CN II-XII intact, able to ambulate with steady gait Skin: warm dry and intact with normal color Course Vital Signs 05/06/23 05/07/23 05/07/23 22:29 01:23 02:20 Temperature 97.9 F Pulse Rate 76 67 74 Respiratory 16 12 17 Rate Blood Pressure 167/92 174/94 165/89 O2 Sat by Pulse 98 92 L 95 Oximetry - Reevaluation(s) Reevaluation #1: 05/07/23 00:24 Patient reevaluated. Patient still complaining of pain. Medical Decision Making - Medical Decision Making Was pt. sent in by a medical professional or institution (, PA, [facility], urgent care, hospital, or detention...) When possible be specific @ -[No] Did you speak to anyone other than the patient for history (EMS, parent, family, police, friend...)? What history was obtained from this source @ -[No] Did you review nursing and triage notes (agree or disagree)? Why? @ -[I reviewed and agree with nursing and triage notes] Were old charts reviewed (outside hosp., previous admission, EMS record, old EKG, old radiological studies, urgent care reports/EKG's, detention records)? Report findings @ -[No old charts were reviewed] Differential Diagnosis (chest pain, altered mental status, abdominal pain women, abdominal pain men, vaginal bleeding, weakness, fever, dyspnea, syncope, headache, dizziness, GI bleed, back pain, seizure, CVA, palpatations, mental health, musculoskeletal)? @ -[not applicable] EKG interpreted by me (3pts min.). @ -[As above] X-rays interpreted by me (1pt min.). @ - CT interpreted by me (1pt min.). @ -[None done] U/S interpreted by me (1pt. min.). @ -[None done] What testing was considered but not performed or refused? (CT, X-rays, U/S, labs)? Why? @ -Patient had recent imaging. She was offered x-rays however she declined What meds were considered but not given or refused? Why? @ -[None] Did you discuss the management of the patient with other professionals (professionals i.e. , [facility], [facility], lab, RT, psych nurse, outreach and education social worker, music worker, teacher, parachute/combatant diver officer, test case developer)? Give summary @ -[No] Was smoking cessation discussed for >3mins.? @ -[No] Was critical care preformed (if so, how long)? @ -[No] Were there social determinants of health that impacted care today? How? (Homelessness, low income, unemployed, alcoholism, drug addiction, transportation, low edu. Level, literacy, decrease access to med. care, senior care, rehab)? @ -[No] Was there de-escalation of care discussed even if they declined (Discuss DNR or withdrawal of care, Hospice)? DNR status @ -[No] What co-morbidities impacted this encounter? (DM, HTN, Smoking, COPD, CAD, Cancer, CVA, ARF, Chemo, Hep., AIDS, mental health diagnosis, sleep apnea, morbid obesity)? @ -[None] Was patient admitted / discharged? Hospital course, mention meds given and route, prescriptions, significant lab abnormalities, going to OR and other pert inent info. @ -Discharged. 67-year-old female who presents the emergency department with right arm problem. Patient had a thorough history and physical exam performed on the ED. Physical exam is essentially unremarkable heart rate regular rate and rhythm, lungs clear to auscultation bilaterally, abdomen soft and non-tender. Right arm with limited range of motion secondary to pain. 4/5 strength testing. 2+ pulses bilaterally. Patient was given Toradol, morphine with symptomatic relief on the emergency department. She was given a prescription for Tylenol with Codeine. I discussed the results in detail with the patient verbalized understanding and all questions were addressed. Return precautions were discussed at length. Patient discharged in stable condition. Case discussed with Dr. Stanley [facility] who agrees with plan of care. Undiagnosed new problem with uncertain prognosis? @ -[No] Drug Therapy requiring intensive monitoring for toxicity (Heparin, Nitro, Insulin, Cardizem)? @ -[No] Were any procedures done? @ -[No] Diagnosis/symptom? @ -Right arm problem Acute, or Chronic, or Acute on Chronic? @ -aCUTE Uncomplicated (without systemic symptoms) or Complicated (systemic symptoms)? @ -Uncomplicated Side effects of treatment? @ -[No] Exacerbation, Progression, or Severe Exacerbation? @ -[No] Poses a threat to life or bodily function? How? (Chest pain, [place], [place], pneumonia, PE, COPD, DKA, ARF, appy, cholecystitis, CVA, Diverticulitis, Homicidal, Suicidal, threat to staff... and all critical care pts) @ -Low likelihood Disposition Clinical Impression: Problem of right upper extremity Disposition: HOME SELF-CARE Condition: Fair Additional Instructions: Please return to the nearest emergency department symptoms worsen or persist Is patient prescribed a controlled substance at d/c from ED?: No Referrals: None,Stated [Primary Care Provider] - 1-2 days Time of Disposition: 03:43
[2023-05-07] MEDS ORDERED: ONDANSETRON 4 MG ODT STARTER PACK 2 TAB BTL PO STA ×2 (00:33→01:52)
[2023-05-07] MEDS ORDERED: ONDANSETRON ODT 4 MG TAB PO STA (00:36)
[2023-05-07] MEDS ORDERED: HYDROmorphone 0.5 MG/0.5 ML SYRINGE IM STA (01:12)
[2023-05-07] MEDS ORDERED: ACET/COD 300 MG/30 MG STARTER PACK 6 TAB BTL PO STA (01:52)
[2023-05-07] MEDS ORDERED: HYDROcodone/APAP 5-325MG 1 EACH TAB PO STA (02:10)
[2023-05-07 02:24] VITALS: BP 165/89; PULSE 74; RESP 17
== END 2023-05-07 02:21 | disposition home or self-care (01) ==
LOC: EC 21:40
DX: M99.07 Segmental and somatic dysfunction of upper extremity (principal); Z87.891 Personal history of nicotine dependence; Z88.5 Allergy status to narcotic agent; Z88.6 Allergy status to analgesic agent
CPT/HCPCS: 99283; 96372 ×2; J2270; J1885; S0119

== ENCOUNTER → 2023-06-07 | Outpatient (CLI) | payer BC ==
--- NOTE | 2023-06-07 13:26 | US ---
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 FINDINGS AND IMPRESSION: Director Of Outpatient Services notes: Scanned right clavicle area of concern. No abnormalities seen. If the palpable ab normality persists or enlarges, the area can be rescanned or CT can be performed.
== END | disposition home or self-care (01) ==
LOC: RADUSWWP 09:36
PROVIDERS: ATTEND Internal Medicine
DX: C7B.02 Secondary carcinoid tumors of liver (principal); R60.9 Edema, unspecified; Z71.3 Dietary counseling and surveillance
CPT/HCPCS: 76536

== ENCOUNTER → 2023-07-05 | Outpatient (CLI) | payer MEDICARE, OTHER ==
[2023-07-05 10:57] LABS: African American GFR (CKD) >90 (>60 ml/min/1.73 sqM); Blood Urea Nitrogen 6 mg/dL (7-17); Non-African American GFR(CKD) >90 (>60 ml/min/1.73 sqM)
--- NOTE | 2023-07-05 12:26 | CT ---
EXAMINATION TYPE: CT abdomen pelvis w con CT DLP: 811.2 mGycm, Automated exposure control for dose reduction was used. DATE OF EXAM: 07/05/2023 12:09 PM COMPARISON: Pet/CT 12/17/2022. 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 Sagittal and coronal reformats were created on a [employer] workstation. Contrast used:100 mL of Isovue 300 with IV Contrast, (none if empty) Oral contrast used: with Oral Contrast (none if empty) FINDINGS: LOWER CHEST: Unremarkable ABDOMEN LIVER: Multiple hepatic masses the largest in the right hepatic lobe measuring 8.3 x 6.2 cm and in th e segment 4A measuring 8.4 x 7.8 cm. In the left hepatic lobe measuring up to 8.9 x 4.9 cm. GALLBLADDER AND BILE DUCTS: There is abrupt shouldering of the extrahepatic biliary system which is n ew as it enters the pancreas. This is best appreciated on series 6 image 38. There is mild intrahepat ic and extra hepatic dilation. The common hepatic duct measuring up to 15 mm. The gallbladder is dist ended likely secondary to this obstruction. PANCREAS: No definitive mass visualized. There is suspected obstruction as described above. SPLEEN: Unremarkable. ADRENAL GLANDS: Unremarkable. KIDNEYS AND URETERS: No evidence of hydronephrosis or renal calculus. The ureters are unremarkable. PELVIS BLADDER: Unremarkable REPRODUCTIVE: Unremarkable. ABDOMEN & PELVIS STOMACH AND BOWEL: Second portion duodenal diverticulum. No evidence of bowel obstruction. PERITONEUM/RETROPERITONEUM: No evidence of pneumoperitoneum or free fluid. VASCULATURE: No evidence of aortic aneurysm. MUSCULOSKELETAL: No acute osseous abnormalities LYMPH NODES: Retroperitoneal lymph nodes have increased in size of largest measuring up tor 9 mm in s hort axis. SOFT TISSUE/ABDOMINAL WALL: Unremarkable IMPRESSION: 1. New Evidence of common bile duct obstruction/stricture, further evaluation with MRI MRCP with IV contrast may be of benefit for evaluation for pancreatic mass. Alternatively a ERCP may provide simil ar information with tissue sampling. This is located just as the common bile duct enters the pancreat ic parenchyma. 2. Multiple hepatic masses compatible with metastatic disease. These have increased in size from roly or PET/CT 12/17/2022 suggesting progression of disease. Additional interval increase in retroperitonea l lymph nodes suspicious for progression of disease.
== END | disposition home or self-care (01) ==
LOC: RADCTMAIN 09:56
PROVIDERS: ATTEND Internal Medicine
DX: C7B.02 Secondary carcinoid tumors of liver (principal); K83.1 Obstruction of bile duct; R16.0 Hepatomegaly, not elsewhere classified
CPT/HCPCS: 82565; 84520; 74177; 36415; Q9967

== ENCOUNTER → 2023-08-03 | Outpatient (CLI) | payer MEDICARE, OTHER ==
[2023-08-03 12:17] LABS: African American GFR (CKD) >90 (>60 ml/min/1.73 sqM); Blood Urea Nitrogen 11 mg/dL (7-17); Non-African American GFR(CKD) >90 (>60 ml/min/1.73 sqM)
--- NOTE | 2023-08-03 15:30 | CT ---
EXAMINATION TYPE: CT chest w con CT DLP: 478 mGycm, Automated exposure control for dose reduction was used. 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 Sagittal and coronal reformats were created for review. Contrast used:100ml mL of Isovue 300 with IV Contrast (None if empty) Oral contrast used: (None if empty) FINDINGS: LUNGS/ PLEURA: No evidence of focal consolidation, pneumothorax or pleural effusion. 3 mm right middl e lobe pulmonary nodule series 3 image 32. AIRWAY: Patent and unremarkable. HEART: Size within normal limits. MEDIASTINUM: No gross evidence of adenopathy. VASCULATURE: Atherosclerotic calcifications are present throughout the aorta and its branches. MUSCULOSKELETAL: Mild disc degeneration changes are present throughout the thoracolumbar spine. SOFT TISSUES/LYMPH NODES: Unremarkable. LOWER NECK: No significant findings. UPPER ABDOMEN: Multiple hepatic masses are seen the largest in the right hepatic lobe measuring 7.8 x 7.2 cm. In the left hepatic lobe measuring 6.7 x 4.7 cm. Biliary stent partially visualized intrahep atic biliary dilation appears to be mildly improved. Small splenule is present. IMPRESSION: 1. No evidence for acute intrathoracic process. 2. No definitive evidence for metastatic disease at this time. 3 mm right middle lobe pulmonary nodu le unchanged from 12/17/2022 3. Metastatic disease within the liver as seen on 07/05/2023. 4. Biliary stent appears in appropriate position. Mild central intrahepatic and extrahepatic dilatio n which may be mildly improved from prior on 07/05/2023. 5. Mild emphysema changes.
== END | disposition home or self-care (01) ==
LOC: RADCTMAIN 11:23
PROVIDERS: ATTEND Internal Medicine
DX: C7B.02 Secondary carcinoid tumors of liver (principal); J43.9 Emphysema, unspecified; Z71.3 Dietary counseling and surveillance; Z96.89 Presence of other specified functional implants
CPT/HCPCS: 82565; 84520; 71260; 36415; Q9967

== ENCOUNTER → 2023-10-05 | Outpatient (CLI) | payer MEDICARE, OTHER ==
[2023-10-05 12:18] LABS: African American GFR (CKD) >90 (>60 ml/min/1.73 sqM); Blood Urea Nitrogen 11 mg/dL (7-17); Non-African American GFR(CKD) >90 (>60 ml/min/1.73 sqM)
--- NOTE | 2023-10-06 21:24 | CT ---
EXAMINATION TYPE: CT ChestAbdPelvis w con DATE OF EXAM: 10/05/2023 COMPARISON: 08/03/2023, 07/05/2023, 12/17/2022 HISTORY: 68-year-old female C7B.02, Secondary carcinoid tumors of liver, hx breast ca TECHNIQUE: Contiguous axial scanning of the chest, abdomen, and pelvis performed with IV Contrast, pa tient injected with 100 mL of Isovue 300. Delayed images through the kidneys were obtained. Coronal/s agittal reconstructions performed. CT DLP: 1719 mGycm Automated exposure control for dose reduction was used. FINDINGS: CHEST: The heart is normal size without pericardial effusion. Aorta normal caliber with bovine configuration to the aortic arch.. The configuration to scarring along the posterior aspect of the lateral right breast is unchanged. No thoracic lymphadenopathy by CT size criteria. Minimal emphysematous change in the upper lungs. Right apical pleural-parenchymal scarring. No consol idation or pleural effusion. No pulmonary nodules are identified. ABDOMEN: Redemonstrated multiple hepatic lesions. Approximately 9 neoplastic lesions are present, larges: lateral right liver lobe measuring 7.0 cm versus 8.8 cm, previously. Mid liver measuring 6.8 cm versus 7.7 cm, previously. Left hepatic dome measuring 6.3 cm versus 6.5 cm, previously. There is new pneumobilia with a biliary stent in place. Portal venous system is patent. 2.1 cm divert iculum of the third portion of the duodenum projecting up into the pancreatic head region. Adrenal glands, kidneys, spleen with inferior splenule and pancreas otherwise show no gross adenopath y. Scattered small retroperitoneal nodes remain, decreased in size compared to 07/05/2023. No residual ly mphadenopathy remains in the mesentery or retroperitoneum. No dilated small bowel, free fluid, or free air. Normal appendix. Oral contrast progressed to the distal transverse colon. There is scattered mild to moderate stool. No pericolic inflammatory change. Pelvis: Bladder urine distended. Uterus and ovaries are visualized. There is a calcified left posterior fund al fibroid redemonstrated. There may be mild pelvic floor relaxation. No abnormal fluid collection in the pelvis or pelvic lymphadenopathy. Possible enhancing nodule measuring 1.6 cm within the right ov мария. This can be reassessed at a short interval follow-up pelvic ultrasound. BONES: Facet arthropathy lower lumbar spine. Mild degenerative disc disease lower thoracic spine. No osseous destructive process. IMPRESSION: 1. MULTIPLE HEPATIC METASTASES REDEMONSTRATED. APPROXIMATELY 9 NEOPLASTIC LESIONS ARE PRESENT. ALL OF THESE SHOW SLIGHT INTERVAL DECREASE IN SIZE. FOR EXAMPLE, THE LARGEST MEASURING 7.0 CM VERSUS 8.8 CM , PREVIOUSLY. 2. BILIARY STENT IN PLACE. NEW PNEUMOBILIA LIKELY A RESULT OF THE INDWELLING STENT. 3. A FEW SCATTERED PREVIOUS BORDERLINE AND MILDLY ENLARGED RETROPERITONEAL LYMPH NODE SEEN ON 07/05/20 23 APPEAR TO HAVE RESOLVED. 4. NEW 1.6 CM ENHANCING NODULE WITHIN THE RIGHT OVARY. UNKNOWN ETIOLOGY. RECOMMEND 6-8 WEEK FOLLOW-UP PELVIC ULTRASOUND TO REASSESS THE RIGHT OVARY FOR ANY UNDERLYING LESION.
== END | disposition home or self-care (01) ==
LOC: RADCTMAIN 11:17
PROVIDERS: ATTEND Internal Medicine
DX: C7B.02 Secondary carcinoid tumors of liver (principal); R59.0 Localized enlarged lymph nodes; Z71.3 Dietary counseling and surveillance; Z95.828 Presence of other vascular implants and grafts
CPT/HCPCS: 82565; 84520; 71260; 74177; 36415; Q9967

== ENCOUNTER → 2023-10-18 | Day surgery (SDC) | payer MEDICARE, OTHER ==
[2023-10-11 16:35] VITALS: BMI 25.2
[~2023-10-18] MED LIST changes: -ALPRAZolam 0.5 MG TAB PO PRN; +LIDOCAINE 1% INJ 10MG/ML (20 ML MDV) SQ ONE
[2023-10-18 11:03] VITALS: BP 138/85; PULSE 86; RESP 16; TEMP 98.2
--- NOTE | 2023-10-18 12:06 | IR ---
PICC LINE PLACEMENT: HISTORY: Infection requiring long-term antibiotic therapy PROCEDURE: Ultrasound and fluoroscopic guidance of PICC line placement. COMPLICATIONS: None ANESTHESIA: 1. 1% Lidocaine locally. FINDINGS/TECHNIQUE: The procedure was explained to the patient. The risks, complications, benefits and alternatives were discussed and any questions were answered. Informed consent was obtained. The patient was placed supine on the fluoroscopic table and prepped and draped in the usual sterile fash ion. Utilizing a 21 gauge needle and sonographic and fluoroscopic guidance, access in the vein was achieved and there is placement of a 0.018 guidewire. The vein is patent. A 5-Fr sheath was placed over the guidewire. The guidewire and dilator were removed and a 5-F. Double lumen PICC line was pl aced through the sheath with the tip at the level of the SVC. The sheath was removed, the catheter w as flushed and sutured into position. The patient was stable throughout the procedure and remained s table upon discharge from the Department of Radiology. The vein puncture was patent under ultrasound. A ramos scale image was obtained to document patency of the vein punctured. All elements of the maximal barrier technique were utilized. FLUOROSCOPY TIME: 0.001 IMPRESSION: Successful PICC double lumen line placement under ultrasound and fluoroscopic guidance.
== END ==
LOC: CATHCVL 10:02
PROVIDERS: ATTEND Radiology Diagnostic Radiology
DX: Z45.2 Encounter for adjustment and management of vascular access device (principal); Z79.2 Long term (current) use of antibiotics; Z79.899 Other long term (current) drug therapy; Z98.890 Other specified postprocedural states
CPT/HCPCS: 36573; C1751; C1769 ×2; J2001

== ENCOUNTER → 2024-04-23 | Outpatient (CLI) | payer MEDICARE, OTHER ==
[2024-04-23 13:56] LABS: African American GFR (CKD) >90 (>60 ml/min/1.73 sqM); Blood Urea Nitrogen 14 mg/dL (7-17); Non-African American GFR(CKD) >90 (>60 ml/min/1.73 sqM)
--- NOTE | 2024-04-26 16:25 | CT ---
EXAMINATION TYPE: CT Chest Abd Pelvis wo/w con CT DLP: 1668.4 mGycm, Automated exposure control for dose reduction was used. DATE OF EXAM: 04/23/2024 3:30 PM COMPARISON: CT chest abdomen pelvis 10/05/2023 CLINICAL INDICATION:Female, 68 years old with history of C7B.02 carcinoid TUMOR LIVER; PHH, carcinoid tumor of the liver. Primary carcinoid of pancreas Technique: CT chest, abdomen and pelvis without and with contrast; Multiple axial images were obtaine d. Two-dimensional coronal and sagittal reconstructions were obtained. Contrast used:100 mL of Isovue 300 without and with IV Contrast, Oral contrast used: with Oral Contrast Findings: CHEST: LUNGS/ PLEURA: The lung parenchyma appears unremarkable. AIRWAY: Patent and unremarkable. HEART: Size within normal limits. Minimal coronary artery disease. MEDIASTINUM: No gross evidence of adenopathy. VASCULATURE: No aortic aneurysm. MUSCULOSKELETAL: No acute osseous abnormalities. SOFT TISSUES/LYMPH NODES: Unremarkable. LOWER NECK: No significant findings. ABDOMEN: ABDOMEN LIVER: Numerous irregular low density lesions of varying sizes consistent with metastatic disease. T he lesions are enlarging compared to the prior exam. For example, large lesion in the left lobe previ ously measured 6.3 cm and currently measures 6.9 cm. GALLBLADDER AND BILE DUCTS: Unremarkable. PANCREAS: Pancreatic head and uncinate process appear slightly hypodense compared to the remainder of the pancreas. There is pancreatic stent in place there's some air within the pancreatic duct. This s uggests a primary source of patient's known carcinoid tumor is pancreas. SPLEEN: Unremarkable. ADRENAL GLANDS: Unremarkable. KIDNEYS AND URETERS: No evidence of hydronephrosis or renal calculus. The ureters are unremarkable. PELVIS BLADDER: Unremarkable REPRODUCTIVE: Calcified fibroid tumor in the posterior wall of the uterus. Uterus is otherwise unrema rkable., Except size may be more than expected for patient's age. ABDOMEN & PELVIS STOMACH AND BOWEL: Stomach and duodenum are unremarkable. No evidence of bowel obstruction. PERITONEUM: No evidence of pneumoperitoneum or free fluid. VASCULATURE: No evidence of aortic aneurysm. MUSCULOSKELETAL: No acute osseous abnormalities LYMPH NODES: No gross evidence for lymphadenopathy. SOFT TISSUE/ABDOMINAL WALL: Unremarkable IMPRESSION: Increasing size of multiple hepatic metastases from previously diagnosed aggressive carcinoid tumor. Presumed pancreas primary source of carcinoid as well positioned stent in the pancreatic duct. 2
== END | disposition home or self-care (01) ==
LOC: RADCTMAIN 13:23
PROVIDERS: ATTEND Internal Medicine
DX: C7B.02 Secondary carcinoid tumors of liver (principal); Z71.3 Dietary counseling and surveillance
CPT/HCPCS: 82565; 84520; 71270; 74178; 36415; Q9967

== ENCOUNTER → 2024-08-13 | Outpatient (CLI) | payer MEDICARE, OTHER ==
[2024-08-13 11:37] LABS: African American GFR (CKD) >90 (>60 ml/min/1.73 sqM); Blood Urea Nitrogen 10 mg/dL (7-17); Non-African American GFR(CKD) >90 (>60 ml/min/1.73 sqM)
--- NOTE | 2024-08-13 13:05 | CT ---
EXAMINATION TYPE: CT ChestAbdPelvis w con CT DLP: 1729 mGycm, Automated exposure control for dose reduction was used. 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 Two-dimensional coronal and sagittal reconstructions were obtained. Contrast used:100 mL of Isovue 300 with IV Contrast, Oral contrast used: with Oral Contrast Findings: CHEST: LUNGS/ PLEURA: No focal consolidation, pneumothorax or pleural effusion. AIRWAY: Patent and unremarkable. HEART: Size within normal limits. MEDIASTINUM: No gross evidence of adenopathy. VASCULATURE: No aortic aneurysm. MUSCULOSKELETAL: No acute osseous abnormalities. Enlarging lesion within the right rib 7 series 3 yissel ge 38r with soft tissue component and cortical thinning possibly breakthrough measuring 26 x 12, prev iously 12 x 8 mm. rSOFT TISSUES/LYMPH NODES: Unremarkable. LOWER NECK: No significant findings. ABDOMEN: ABDOMEN LIVER: Enlarging masses within the liver and the left hepatic lobe measuring 86 x 16 mm previously 71 x 51 mm and in the right hepatic lobe measuring 78 x 78 mm, previously 73 x 55 mm. There are at leas t 7 lesions seen within the liver. Comparison is slightly limited due to differences in contrast tamara ng GALLBLADDER AND BILE DUCTS: Biliary stent appears in satisfactory position with mild dilation of upst ream from this stent at the common hepatic duct series 5 image 53, hepatic duct measuring up to 11 mm . There is a 8 mm. Mild intrahepatic biliary dilation noted better appreciated on today's exam possib ly slightly worsened. PANCREAS: No ductal dilation or evidence for pancreatic mass. SPLEEN: Unremarkable. ADRENAL GLANDS: Unremarkable. KIDNEYS AND URETERS: No evidence of hydronephrosis or renal calculus. The ureters are unremarkable. PELVIS BLADDER: Unremarkable REPRODUCTIVE: Unremarkable. ABDOMEN & PELVIS STOMACH AND BOWEL: No evidence of bowel obstruction. The appendix is normal. PERITONEUM/RETROPERITONEUM: No evidence of pneumoperitoneum or free fluid. VASCULATURE: No evidence of aortic aneurysm. MUSCULOSKELETAL: No acute osseous abnormalities LYMPH NODES: No gross evidence for lymphadenopathy. SOFT TISSUE/ABDOMINAL WALL: Unremarkable IMPRESSION: 1. Increasing size of right rib 7 lesion as well as liver lesions compared to prior 04/23/2024. Findin gs suggest progression of disease. 2. Biliary stent with mild dilation upstream possibly representing some degree of obstruction of the stent. The intrahepatic and extrahepatic biliary system is mildly dilated. [facility], Workstation: [id number], 08/13/2024 1:03 PM
== END | disposition home or self-care (01) ==
LOC: RADCTMAIN 10:46
PROVIDERS: ATTEND Internal Medicine
DX: C7B.02 Secondary carcinoid tumors of liver
CPT/HCPCS: 36415; 71260; 74177; 82565; 84520

== ENCOUNTER 2024-08-31 08:12 | Emergency (ER) | payer MEDICARE, OTHER ==
[2024-08-31 08:17] VITALS: TEMP 98.4
[2024-08-31 09:09] LABS: Basophils % (A) 0 %; Eosinophils % (A) 0 %; HCT 48.8 % (34.0-46.0); HGB 16.3 gm/dL (11.4-16.0); Lymphocytes # (A) 0.5 k/uL (1.0-4.8); Lymphocytes % (A) 4 %; MCH 31.7 pg (25.0-35.0); MCHC 33.4 g/dL (31.0-37.0); MCV 94.8 fL (80.0-100.0); Mean Platelet Volume 6.5; Monocytes # (A) 0.8 k/uL (0-1.0); Monocytes % (A) 6 %; Neutrophils # (A) 12.3 k/uL (1.3-7.7); Neutrophils % (A) 90 %; Platelet Count 171 k/uL (150-450); RBC 5.15 m/uL (3.80-5.40); RDW 13.3 % (11.5-15.5); WBC 13.8 k/uL (3.8-10.6)
[2024-08-31] MEDS: SODIUM CHLORIDE 0.9% 1,000 ML IV STA (09:15)
[2024-08-31] MEDS: HYDROmorphone 0.5 MG/0.5 ML SYRINGE IVP STA (09:16)
[2024-08-31 09:22] LABS: INR 1.1 (<1.2); Partial Thromboplastin Time 22.6 sec (22.0-30.0); Prothrombin Time 11.8 sec (10.0-12.5)
[2024-08-31] MEDS: METOCLOPRAMIDE 5 MG/ML 2 ML VIAL IVP STA (09:23)
--- NOTE | 2024-08-31 09:25 | CT ---
EXAMINATION TYPE: CT abdomen pelvis wo con DATE OF EXAM: 08/31/2024 COMPARISON: 08/13/2024 HISTORY: Severe abd pain post liver biopsy yesterday CT DLP: 574.5 mGycm Examination of the solid and hollow viscera is limited given the lack of contrast. FINDINGS: LUNG BASES: No evidence for nodule. No evidence for infiltrate. LIVER/GB: The gallbladder is unremarkable. Multiple hepatic masses are redemonstrated. Common bile du ct catheter is noted. The graft PANCREAS: No pancreatic mass identified. No inflammatory process seen . SPLEEN: No evidence for splenomegaly. No intrasplenic lesions seen. ADRENALS: No adrenal nodules identified. No evidence for thickening. KIDNEYS: No evidence for renal mass. No nephrolithiasis. No hydronephrosis. BOWEL: Appendix has a normal appearance. No evidence of bowel obstruction. No inflammatory process. Lymph nodes: No evidence for adenopathy greater than 1 cm. Abdominal aorta: Atheromatous changes seen. No evidence for aneurysm. Genital organs: Calcified uterine leiomyomata. 4.5 cm lobulated mass posterior to the right uterus is unchanged. Other: No significant abnormality. IMPRESSION: 1. No acute process appreciated at this time. 2. Multiple hepatic masses appear unchanged. 2. Lobulated mass posterior to the right uterus to the right of midline is unchanged as well. [facility], , 08/31/2024 9:23 AM
[2024-08-31 09:28] LABS: ALT 20 U/L (4-34); African American GFR (CKD) >90 (>60 ml/min/1.73 sqM); Albumin 4.5 g/dL (3.5-5.0); Amylase 39 U/L (30-110); Anion Gap 10 mmol/L; Blood Urea Nitrogen 9 mg/dL (7-17); Calcium 9.2 mg/dL (8.4-10.2); Carbon Dioxide 27 mmol/L (22-30); Chloride 102 mmol/L (98-107); Glucose 180 mg/dL (74-99); Lipase 168 U/L (23-300); Non-African American GFR(CKD) >90 (>60 ml/min/1.73 sqM); Sodium 139 mmol/L (137-145); Total Bilirubin 1.3 mg/dL (0.2-1.3); Total Protein 8.4 g/dL (6.3-8.2)
[2024-08-31 09:30] LABS: AST 53 U/L (14-36); Alkaline Phosphatase 64 U/L (38-126)
--- NOTE | 2024-08-31 09:46 | ED ---
Abdominal Pain HPI - General Chief Complaint: Abdominal Pain Stated Complaint: Abdominal Pain Time Seen by Provider: 08/31/24 08:19 Source: patient Mode of arrival: wheelchair Limitations: no limitations - History of Present Illness Initial Comments: This is a 69-year-old female with history of neuroendocrine cancer presenting with constant mid abdominal pain since liver biopsy yesterday. Patient states symptoms began as anesthesia began to wear off following the procedure yesterday. 7 lesions were noted on patient's liver from a CT scan on 08/13/2024, diagnosis carcinoid liver tumors. Patient states pain is severe at 10 out of 10 pain described as "twisting and spasming" near site of epigastric laparoscopic incision with pain radiating to bilateral shoulders. Patient endorses use of Tylenol yesterday and Tylenol 3 and Zofran today with minimal relief. Patient denies fevers, chills, body aches, fatigue, chest pain, dyspnea, back pain, ur inary symptoms, diarrhea, constipation. MD Complaint: abdominal pain Onset/Timin -: days(s) Location: epigastric Radiation: other (Bilateral shoulders) Severity: severe Severity scale (1-10): 10 Quality: other ("Twisting and spasming") Consistency: constant Improves With: nothing Worsens With: movement, other (Palpation) Context: recent surgery/procedure Associated Symptoms: nausea, vomiting Treatments Prior to Arrival: prescription analgesics (Tylenol 3), other (Zofran) - Related Data Home Medications Medication Instructions Recorded Confirmed Acetaminophen Tab [Tylenol Tab] 1,000 mg PO Q6HR 01/03/23 10/11/23 Ibuprofen [Motrin] 400 mg PO Q6HR PRN 01/03/23 10/11/23 Gabapentin 300 mg PO TID 10/11/23 10/18/23 Sennosides/Docusate Sodium [Senna 1 each PO DAILY PRN 10/11/23 10/11/23 Plus 8.6-50 mg Softgel] Previous Rx's Medication Instructions Recorded Ondansetron Odt [Zofran Odt] 4 mg PO Q8HR PRN #10 tab 08/31/24 Allergies Allergy/AdvReac Type Severity Reaction Status Date / Time codeine Allergy Nausea & Verified 08/31/24 08:14 Vomiting hydrocodone [From [facility]] AdvReac Nausea & Verified 08/31/24 08:14 Vomiting Review of Systems ROS Statement: Those systems with pertinent positive or pertinent negative responses have been documented in the HPI. ROS Other: All systems not noted in ROS Statement are negative. Past Medical History Past Medical History: Cancer Additional Past Medical History / Comment(s): current chemo treatment neuroendocrine tumors-last chemo dose Sep-next dose due on 10-19-23,current tx w/ gabapentin for shingles pain-rash is healed under rt breast, hx right breast with radiation and chemo in 2001, previous fall with broken rib and pneumothorax requiring chest tube 2016 History of Any Multi-Drug Resistant Organisms: None Reported Past Surgical History: Breast Surgery Additional Past Surgical History / Comment(s): 2012 BENIGN TUMOR REMOVED FROM NECK, 2001 LUMPECTOMY RIGHT BREAST, liver biopsy with cancer cells but unknown if metastasis from breast or lung, liver biopst Past Anesthesia/Blood Transfusion Reactions: No Reported Reaction Additional Past Anesthesia/Blood Transfusion Reaction / Comment(s): no hx blood transfusion Past Psychological History: No Psychological Hx Reported Smoking Status: Former smoker - Past Family History Mother Family Medical History: Cancer Additional Family Medical History / Comment(s): uterine or cervical patient unsure General Exam Limitations: no limitations General appearance: alert, in no apparent distress Head exam: Present: atraumatic, normocephalic, normal inspection Eye exam: Present: normal appearance, PERRL, EOMI. Absent: scleral icterus, conjunctival injection, periorbital swelling ENT exam: Present: normal exam, mucous membranes moist Neck exam: Present: normal inspection. Absent: tenderness, meningismus, lymphadenopathy Respiratory exam: Present: normal lung sounds bilaterally. Absent: respiratory distress, wheezes, rales, rhonchi, stridor Cardiovascular Exam: Present: regular rate, normal rhythm, normal heart sounds. Absent: systolic murmur, diastolic murmur, rubs, gallop, clicks GI/Abdominal exam: Present: soft, tenderness (Positive diffuse tenderness especially around surgical incision site/epigastric region. Positive tympanic tenderness especially around surgical incision site.), guarding (Positive involuntary guarding near surgical incision site.), rebound, diminished bowel sounds, hypoactive bowel sounds. Absent: distended, rigid Extremities exam: Present: normal inspection, full ROM, normal capillary refill. Absent: tenderness, pedal edema, joint swelling, calf tenderness Back exam: Present: normal inspection Neurological exam: Present: alert, oriented X3, CN II-XII intact Psychiatric exam: Present: normal affect, normal mood Skin exam: Present: warm, dry, intact, normal color. Absent: rash Course Vital Signs 08/31/24 08/31/24 08/31/24 08:15 08:29 09:15 Temperature 98.4 F Pulse Rate 95 94 87 Respiratory 16 18 18 Rate Blood Pressure 129/76 168/89 152/85 O2 Sat by Pulse 97 95 95 Oximetry 08/31/24 10:26 Temperature Pulse Rate 101 H Respiratory 16 Rate Blood Pressure 168/86 O2 Sat by Pulse 95 Oximetry Medical Decision Making - Medical Decision Making Was pt. sent in by a medical professional or institution (, PA, MATERIAL EXPEDITER, urgent care, hospital, or longterm...) When possible be specific @ -[No] Did you speak to anyone other than the patient for history (EMS, parent, family, police, friend...)? What history was obtained from this source @ -[No] Did you review nursing and triage notes (agree or disagree)? Why? @ -[I reviewed and agree with nursing and triage notes] Were old charts reviewed (outside hosp., previous admission, EMS record, old EKG, old radiological studies, urgent care reports/EKG's, longterm records)? Report findings @ -Old CT scan from July 2024 you can visualize hepatic lesions that had been biopsied Differential Diagnosis (chest pain, altered mental status, abdominal pain women, abdominal pain men, vaginal bleeding, weakness, fever, dyspnea, syncope, headache, dizziness, GI bleed, back pain, seizure, CVA, palpatations, mental health, musculoskeletal)? @ -Differential Abdominal Pain Women: Appendicitis, Cholecystitis, diverticulosis, ischemic bowel, pancreatitis, hepatitis, UTI, gastroenteritis, AAA, incarcerated hernia, bowel obstruction, constipation, inflammatory bowel, hepatitis, peptic ulcer disease, splenic infarction, perforated viscus, vulvitis, ovarian torsion, PID, kidney stone, placenta abruption, this is not meant to be an all-inclusive list EKG interpreted by me (3pts min.). @ -Sinus tachycardia without ST elevation, ST depression or T wave inversion. Ventricular rate 106 bpm, AL interval 130 ms, QRS duration 90 ms, QT/QTc 330/392 ms. X-rays interpreted by me (1pt min.). @ -[None done] CT interpreted by me (1pt min.). @ -Abdominal CT shows no obvious intraperitoneal hemorrhaging. Some gastric/stool distention and transverse colon near an area of tenderness. U/S interpreted by me (1pt. min.). @ -[None done] What testing was considered but not performed or refused? (CT, X-rays, U/S, labs)? Why? @ -[None] What meds were considered but not given or refused? Why? @ -[None] Did you discuss the management of the patient with other professionals (professionals i.e. , PA, MATERIAL EXPEDITER, lab, RT, psych nurse, social media strategist, environmental lawyer, teacher, collection officer, caseworker intake)? Give summary @ -[No] Was smoking cessation discussed for >3mins.? @ -[No] Was critical care preformed (if so, how long)? @ -[No] Were there social determinants of health that impacted care today? How? (Homelessness, low income, unemployed, alcoholism, drug addiction, transportation, low edu. Level, literacy, decrease access to med. care, [facility], rehab)? @ -[No] Was there de-escalation of care discussed even if they declined (Discuss DNR or withdrawal of care, Hospice)? DNR status @ -[No] What co-morbidities impacted this encounter? (DM, HTN, Smoking, COPD, CAD, Cancer, CVA, ARF, Chemo, Hep., AIDS, mental health diagnosis, sleep apnea, morbid obesity)? @ -[None] Was patient admitted / discharged? Hospital course, mention meds given and route, prescriptions, significant lab abnormalities, going to OR and other p ertinent info. @ -Discharged. Patient given Reglan and Dilaudid IV for pain control with good response. Abdominal CT shows no concerning findings according to radiologist. Advised patient pain is likely due to to surgical site incision pain. Advised follow-up with surgeon regarding any ongoing pain. Advised return to ER if pain is uncontrollable or worsens. Patient discharged with Tylenol 3 starter pack. Undiagnosed new problem with uncertain prognosis? @ -[No] Drug Therapy requiring intensive monitoring for toxicity (Heparin, Nitro, Insulin, Cardizem)? @ -[No] Were any procedures done? @ -[No] Diagnosis/symptom? @ -Surgical site incision pain Acute, or Chronic, or Acute on Chronic? @ -Acute Uncomplicated (without systemic symptoms) or Complicated (systemic symptoms)? @ -Uncomplicated Side effects of treatment? @ -[No] Exacerbation, Progression, or Severe Exacerbation? @ -[No] Poses a threat to life or bodily function? How? (Chest pain, USA, GA, pneumonia, PE, COPD, DKA, ARF, appy, cholecystitis, CVA, Diverticulitis, Homicidal, Suicidal, threat to staff... and all critical care pts) @ -[No] - Lab Data Result diagrams: 08/31/24 08:54 08/31/24 08:54 Lab Results 08/31/24 08/31/24 08/31/24 Range/Units 08:54 08:54 08:54 WBC 13.8 H (3.8-10.6) k/uL RBC 5.15 (3.80-5.40) m/uL Hgb 16.3 H (11.4-16.0) gm/dL Hct 48.8 H (34.0-46.0) % MCV 94.8 (80.0-100.0) fL MCH 31.7 (25.0-35.0) pg MCHC 33.4 (31.0-37.0) g/dL RDW 13.3 (11.5-15.5) % Plt Count 171 (150-450) k/uL MPV 6.5 Neutrophils % 90 % Lymphocytes % 4 % Monocytes % 6 % Eosinophils % 0 % Basophils % 0 % Neutrophils # 12.3 H (1.3-7.7) k/uL Lymphocytes # 0.5 L (1.0-4.8) k/uL Monocytes # 0.8 (0-1.0) k/uL Eosinophils # 0.0 (0-0.7) k/uL Basophils # 0.0 (0-0.2) k/uL PT 11.8 (10.0-12.5) sec INR 1.1 (<1.2) APTT 22.6 (22.0-30.0) sec Sodium 139 (137-145) mmol/L Potassium 4.0 (3.5-5.1) mmol/L Chloride 102 (98-107) mmol/L Carbon Dioxide 27 (22-30) mmol/L Anion Gap 10 mmol/L BUN 9 (7-17) mg/dL Creatinine 0.63 (0.52-1.04) mg/dL Est GFR (CKD-EPI)AfAm >90 (>60 ml/min/1.73 sqM) Est GFR (CKD-EPI)NonAf >90 (>60 ml/min/1.73 sqM) Glucose 180 H (74-99) mg/dL Plasma Lactic Acid Collin (0.7-2.0) mmol/L Calcium 9.2 (8.4-10.2) mg/dL Total Bilirubin 1.3 (0.2-1.3) mg/dL AST 53 H (14-36) U/L ALT 20 (4-34) U/L Alkaline Phosphatase 64 (38-126) U/L Troponin I (0.000-0.034) ng/mL Total Protein 8.4 H (6.3-8.2) g/dL Albumin 4.5 (3.5-5.0) g/dL Amylase 39 (30-110) U/L Lipase 168 (23-300) U/L 08/31/24 08/31/24 Range/Units 08:54 08:54 WBC (3.8-10.6) k/uL RBC (3.80-5.40) m/uL Hgb (11.4-16.0) gm/dL Hct (34.0-46.0) % MCV (80.0-100.0) fL MCH (25.0-35.0) pg MCHC (31.0-37.0) g/dL RDW (11.5-15.5) % Plt Count (150-450) k/uL MPV Neutrophils % % Lymphocytes % % Monocytes % % Eosinophils % % Basophils % % Neutrophils # (1.3-7.7) k/uL Lymphocytes # (1.0-4.8) k/uL Monocytes # (0-1.0) k/uL Eosinophils # (0-0.7) k/uL Basophils # (0-0.2) k/uL PT (10.0-12.5) sec INR (<1.2) APTT (22.0-30.0) sec Sodium (137-145) mmol/L Potassium (3.5-5.1) mmol/L Chloride (98-107) mmol/L Carbon Dioxide (22-30) mmol/L Anion Gap mmol/L BUN (7-17) mg/dL Creatinine (0.52-1.04) mg/dL Est GFR (CKD-EPI)AfAm (>60 ml/min/1.73 sqM) Est GFR (CKD-EPI)NonAf (>60 ml/min/1.73 sqM) Glucose (74-99) mg/dL Plasma Lactic Acid Collin 1.4 (0.7-2.0) mmol/L Calcium (8.4-10.2) mg/dL Total Bilirubin (0.2-1.3) mg/dL AST (14-36) U/L ALT (4-34) U/L Alkaline Phosphatase (38-126) U/L Troponin I <0.012 (0.000-0.034) ng/mL Total Protein (6.3-8.2) g/dL Albumin (3.5-5.0) g/dL Amylase (30-110) U/L Lipase (23-300) U/L Disposition Clinical Impression: Pain at surgical site Disposition: HOME SELF-CARE Condition: Good Instructions (If sedation given, give patient instructions): Laparoscopic Liver Biopsy (DC) Prescriptions: Ondansetron Odt [Zofran Odt] 4 mg PO Q8HR PRN #10 tab PRN Reason: Nausea Is patient prescribed a controlled substance at d/c from ED?: No Referrals: None,Stated [Primary Care Provider] - 1-2 days Time of Disposition: 10:26
[2024-08-31 10:27] VITALS: RESP 16
[2024-08-31] MEDS: ACET/COD 300 MG/30 MG STARTER PACK 6 TAB BTL PO STA (11:09)
[2024-08-31 11:14] VITALS: BP 149/85; PULSE 96
== END 2024-08-31 11:23 | disposition home or self-care (01) ==
LOC: EC 08:12
CPT/HCPCS: 36415; 74176; 80053; 82150; 83605; 83690; 84484; 85025; 85610; 85730; 93005; 96361; 96374; 96375; 99284

== ENCOUNTER 2024-09-17 13:55 | Emergency (ER) | payer MEDICARE ==
[2024-09-17 14:06] VITALS: TEMP 98.9
--- NOTE | 2024-09-17 14:38 | ED ---
Abdominal Pain HPI - General Source: patient, family, RN notes reviewed Mode of arrival: wheelchair Limitations: no limitations <Noble Tripathi - Last Filed: 09/17/24 14:37> <Lea Taylor - Last Filed: 09/17/24 21:52> - General Chief Complaint: Abdominal Pain Stated Complaint: abd pain Time Seen by Provider: 09/17/24 14:08 - History of Present Illness Initial Comments: Quick [id number] female presents emergency department chief complaint of abdominal pain. She had been increasing abdominal pain. Patient states she was seen here recently had a CAT scan after having a liver biopsy performed at [facility]. Patient contacted her oncologist Dr. Stern who advised him to come to emergency department. (Noble Tripathi) 69-year-old female with past medical history of breast cancer 27 years ago, neuroendocrine tumor of arm who presents to the emergency department abdominal pain. Most recently it was found that the patient had liver masses. She had a biopsy done at [facility] 3 weeks ago. Procedure was done on August 30. She came in on the that she was having some pain. Labs are within normal limits and CT was negative for acute process. Over the course of the 2.5 weeks the patient has had increasing pain and abdominal distention. He has had decreased oral intake. She talked to her oncologist who recommended that she come into the emergency department for evaluation. She denies any fevers. No chest pain or shortness of breath. Admits to generalized weakness. No black or bloody stools. No changes in her urination. She has not had any chemo since November. No other alleviating, precipitating or modifying factors (Lea Taylor) - Related Data Home Medications Medication Instructions Recorded Confirmed Acetaminophen Tab [Tylenol Tab] 1,000 mg PO Q6HR 01/03/23 10/11/23 Ibuprofen [Motrin] 400 mg PO Q6HR PRN 01/03/23 10/11/23 Gabapentin 300 mg PO TID 10/11/23 10/18/23 Sennosides/Docusate Sodium [Senna 1 each PO DAILY PRN 10/11/23 10/11/23 Plus 8.6-50 mg Softgel] Previous Rx's Medication Instructions Recorded Ondansetron Odt [Zofran Odt] 4 mg PO Q8HR PRN #10 tab 08/31/24 Allergies Allergy/AdvReac Type Severity Reaction Status Date / Time codeine Allergy Nausea & Verified 09/17/24 14:02 Vomiting hydrocodone [From [place]] AdvReac Nausea & Verified 09/17/24 14:02 Vomiting Review of Systems ROS Other: All systems not noted in ROS Statement are negative. <Noble Tripathi - Last Filed: 09/17/24 14:37> ROS Other: All systems not noted in ROS Statement are negative. <Lea Taylor - Last Filed: 09/17/24 21:52> ROS Statement: Those systems with pertinent positive or pertinent negative responses have been documented in the HPI. Past Medical History Past Medical History: Cancer Additional Past Medical History / Comment(s): current chemo treatment neuroendocrine tumors-last chemo dose Sep-next dose due on 10-19-23,current tx w/ gabapentin for shingles pain-rash is healed under rt b reast, hx right breast with radiation and chemo in 2001, previous fall with broken rib and pneumothorax requiring chest tube 2016 History of Any Multi-Drug Resistant Organisms: None Reported Past Surgical History: Breast Surgery Additional Past Surgical History / Comment(s): 2012 BENIGN TUMOR REMOVED FROM NECK, 2001 LUMPECTOMY RIGHT BREAST, liver biopsy with cancer cells but unknown if metastasis from breast or lung, liver biopst Past Anesthesia/Blood Transfusion Reactions: No Reported Reaction Additional Past Anesthesia/Blood Transfusion Reaction / Comment(s): no hx blood transfusion Past Psychological History: No Psychological Hx Reported Smoking Status: Former smoker - Past Family History Mother Family Medical History: Cancer Additional Family Medical History / Comment(s): uterine or cervical patient unsure <Noble Tripathi - Last Filed: 09/17/24 14:37> General Exam Limitations: no limitations <Noble Tripathi - Last Filed: 09/17/24 14:37> General appearance: alert, in no apparent distress Head exam: Present: atraumatic, normocephalic, normal inspection Eye exam: Present: normal appearance, PERRL, EOMI. Absent: scleral icterus, conjunctival injection, periorbital swelling ENT exam: Present: normal exam, mucous membranes moist Neck exam: Present: normal inspection. Absent: tenderness, meningismus, lymphadenopathy Respiratory exam: Present: normal lung sounds bilaterally Cardiovascular Exam: Present: regular rate, normal rhythm, normal heart sounds. Absent: systolic murmur, diastolic murmur, rubs, gallop, clicks GI/Abdominal exam: Present: distended, rigid Extremities exam: Present: normal inspection, full ROM, normal capillary refill. Absent: tenderness, pedal edema, joint swelling, calf tenderness Skin exam: Present: warm, dry, intact, normal color. Absent: rash <Lea Taylor - Last Filed: 09/17/24 21:52> - General Exam Comments Initial Comments: Visual Physical Exam Vital signs reviewed General: Well-appearing, nontoxic, no acute distress. Head: Normocephalic, atraumatic Eyes: PERRLA, EOMI ENT: Airway patent Chest: Nonlabored breathing Skin: No visual rash, normal skin tone Neuro: Alert and oriented 3 Musculoskeletal: No gross abnormalities (Noble Tripathi) Course Vital Signs 09/17/24 09/17/24 14:02 18:01 Temperature 98.9 F Pulse Rate 97 96 Respiratory 18 20 Rate Blood Pressure 150/72 149/86 O2 Sat by Pulse 97 96 Oximetry Medical Decision Making <Noble Tripathi - Last Filed: 09/17/24 14:37> - Lab Data Result diagrams: 09/17/24 17:58 09/17/24 17:58 <Lea Taylor - Last Filed: 09/17/24 21:52> - Medical Decision Making I completed the quick note portion of this chart signed Noble Tripathi PA-C (Noble Tripathi) Was pt. sent in by a medical professional or institution ([facility] Frankel, CONCRETE TESTER, urgent care, hospital, or shelter...) When possible be specific @ -Was sent in from her oncology office Did you speak to anyone other than the patient for history (EMS, parent, family, police, friend...)? What history was obtained from this source @ -I spoke with the for history Did you review nursing and triage notes (agree or disagree)? Why? @ -I reviewed and agree with nursing and triage notes Were old charts reviewed (outside hosp., previous admission, EMS record, old EKG, old radiological studies, urgent care reports/EKG's, shelter records)? Report findings @ -I reviewed the ED visit from August 30 with the patient was evaluated. CT demonstrated no acute abnormalities Differential Diagnosis (chest pain, altered mental status, abdominal pain women, abdominal pain men, vaginal bleeding, weakness, fever, dyspnea, syncope, headache, dizziness, GI bleed, back pain, seizure, CVA, palpatations, mental health, musculoskeletal)? @ -Differential Abdominal Pain Women: Appendicitis, Cholecystitis, diverticulosis, ischemic bowel, pancreatitis, hepatitis, UTI, gastroenteritis, AAA, incarcerated hernia, bowel obstruction, constipation, inflammatory bowel, hepatitis, peptic ulcer disease, splenic infarction, perforated viscus, vulvitis, ovarian torsion, PID, kidney stone, placenta abruption, this is not meant to be an all-inclusive list EKG interpreted by me (3pts min.). @ -Not done X-rays interpreted by me (1pt min.). @ -None done CT interpreted by me (1pt min.). @ -Yes and demonstrates large intra-abdominal fluid collection within the left liver lobe concerning for abscess U/S interpreted by me (1pt. min.). @ -None done What testing was considered but not performed or refused? (CT, X-rays, U/S, labs)? Why? @ -None What meds were considered but not given or refused? Why? @ -None Did you discuss the management of the patient with other professionals (professionals i.e. , PA, CONCRETE TESTER, lab, RT, psych nurse, clinical social work therapist, office system analyst, teacher, credit or loans officer, oil field caser)? Give summary @ -I spoke with ED physician at [facility] who does not feel that they have capabilities to take care of the patient. Recommends transfer to [facility]. I called and spoke to Dr. Mc who accepts transfer Was smoking cessation discussed for >3mins.? @ -No Was critical care preformed (if so, how long)? @ -No Were there social determinants of health that impacted care today? How? (Homelessness, low income, unemployed, alcoholism, drug addiction, transportation, low edu. Level, literacy, decrease access to med. care, long term, rehab)? @ -No Was there de-escalation of care discussed even if they declined (Discuss DNR or withdrawal of care, Hospice)? DNR status @ -No What co-morbidities impacted this encounter? (DM, HTN, Smoking, COPD, CAD, Cancer, CVA, ARF, Chemo, Hep., AIDS, mental health diagnosis, sleep apnea, morbid obesity)? @ -Neuroendocrine cancer Was patient admitted / discharged? Hospital course, mention meds given and route, prescriptions, significant lab abnormalities, going to OR and other pertinent info. @ -Upon arrival patient seen and evaluated in room 6. Thorough history and physical exam was performed. IV access was established and laboratory studies are conducted. She was given 2 mg of morphine and 4 mg of Zofran as she did not want full dose of pain medications. Patient does have an elevated white blood cell count. CT was performed which demonstrates a large intra-abdominal mass concerning for abdominal abscess. Patient is given a dose of Zosyn. She is also given Pepcid and Protonix IV as she is requesting Tums. She does require transfer to facility who completed biopsy. I spoke with the ER physician at [facility] who does not feel that they have the capabilities to take care of the patient. They recommend transfer to [facility]. I spoke with Dr. Mc who agreed to accept transfer of the patient. Blood cultures were obtain ed prior to transfer and initiation of antibiotics. COBRA forms are signed. Patient will be transferred in stable condition Undiagnosed new problem with uncertain prognosis? @ -No Drug Therapy requiring intensive monitoring for toxicity (Heparin, Nitro, Insulin, Cardizem)? @ -No Were any procedures done? @ -No Diagnosis/symptom? @ -Acute abdominal pain, acute liver abscess, status post liver biopsy 08/30 Acute, or Chronic, or Acute on Chronic? @ -Acute Uncomplicated (without systemic symptoms) or Complicated (systemic symptoms)? @ -Complicated Side effects of treatment? @ -No Exacerbation, Progression, or Severe Exacerbation? @ -No Poses a threat to life or bodily function? How? (Chest pain, USA, GA, pneumonia, PE, COPD, DKA, ARF, appy, cholecystitis, CVA, Diverticulitis, Homicidal, Suicidal, threat to staff... and all critical care pts) @ -Yes as patient requires intervention for her large liver abscess (Lea Taylor) - Lab Data Lab Results 09/17/24 09/17/24 09/17/24 Range/Units 17:58 17:58 17:58 WBC 15.1 H (3.8-10.6) k/uL RBC 4.35 (3.80-5.40) m/uL Hgb 13.2 D (11.4-16.0) gm/dL Hct 41.1 (34.0-46.0) % MCV 94.5 (80.0-100.0) fL MCH 30.4 (25.0-35.0) pg MCHC 32.1 (31.0-37.0) g/dL RDW 13.9 (11.5-15.5) % Plt Count 353 D (150-450) k/uL MPV 7.3 Neutrophils % 82 % Lymphocytes % 8 % Monocytes % 8 % Eosinophils % 0 % Basophils % 0 % Neutrophils # 12.4 H (1.3-7.7) k/uL Lymphocytes # 1.2 (1.0-4.8) k/uL Monocytes # 1.2 H (0-1.0) k/uL Eosinophils # 0.0 (0-0.7) k/uL Basophils # 0.0 (0-0.2) k/uL PT 12.7 H (10.0-12.5) sec INR 1.2 H (<1.2) APTT 24.8 (22.0-30.0) sec Sodium 134 L (137-145) mmol/L Potassium 4.2 (3.5-5.1) mmol/L Chloride 95 L (98-107) mmol/L Carbon Dioxide 25 (22-30) mmol/L Anion Gap 14 mmol/L BUN 8 (7-17) mg/dL Creatinine 0.41 L (0.52-1.04) mg/dL Est GFR (CKD-EPI)AfAm >90 (>60 ml/min/1.73 sqM) Est GFR (CKD-EPI)NonAf >90 (>60 ml/min/1.73 sqM) Glucose 84 (74-99) mg/dL Plasma Lactic Acid Collin (0.7-2.0) mmol/L Calcium 8.2 L (8.4-10.2) mg/dL Total Bilirubin 0.9 (0.2-1.3) mg/dL AST 37 H (14-36) U/L ALT 16 (4-34) U/L Alkaline Phosphatase 109 (38-126) U/L Total Protein 7.9 (6.3-8.2) g/dL Albumin 3.4 L (3.5-5.0) g/dL Amylase <30 L (30-110) U/L Lipase 277 (23-300) U/L Blood Type Blood Type Confirm Blood Type Recheck Bld Type Recheck Status Antibody Screen Spec Expiration Date 09/17/24 09/17/24 09/17/24 Range/Units 17:58 18:00 19:07 WBC (3.8-10.6) k/uL RBC (3.80-5.40) m/uL Hgb (11.4-16.0) gm/dL Hct (34.0-46.0) % MCV (80.0-100.0) fL MCH (25.0-35.0) pg MCHC (31.0-37.0) g/dL RDW (11.5-15.5) % Plt Count (150-450) k/uL MPV Neutrophils % % Lymphocytes % % Monocytes % % Eosinophils % % Basophils % % Neutrophils # (1.3-7.7) k/uL Lymphocytes # (1.0-4.8) k/uL Monocytes # (0-1.0) k/uL Eosinophils # (0-0.7) k/uL Basophils # (0-0.2) k/uL PT (10.0-12.5) sec INR (<1.2) APTT (22.0-30.0) sec Sodium (137-145) mmol/L Potassium (3.5-5.1) mmol/L Chloride (98-107) mmol/L Carbon Dioxide (22-30) mmol/L Anion Gap mmol/L BUN (7-17) mg/dL Creatinine (0.52-1.04) mg/dL Est GFR (CKD-EPI)AfAm (>60 ml/min/1.73 sqM) Est GFR (CKD-EPI)NonAf (>60 ml/min/1.73 sqM) Glucose (74-99) mg/dL Plasma Lactic Acid Collin 1.7 (0.7-2.0) mmol/L Calcium (8.4-10.2) mg/dL Total Bilirubin (0.2-1.3) mg/dL AST (14-36) U/L ALT (4-34) U/L Alkaline Phosphatase (38-126) U/L Total Protein (6.3-8.2) g/dL Albumin (3.5-5.0) g/dL Amylase (30-110) U/L Lipase (23-300) U/L Blood Type A Negative Blood Type Confirm A Negative Blood Type Recheck No Previous Record Bld Type Recheck Status CABO Indicated Antibody Screen NEGATIVE Spec Expiration Date 09/20/2024 - 2299 Disposition <Noble Tripathi - Last Filed: 09/17/24 14:37> Is patient prescribed a controlled substance at d/c from ED?: No - Out of Hospital Transfer - Req. Specs Out of Hospital Transfer - Requested Specifics: Other Emergency Center ([facility]/ [facility]) <Lea Taylor - Last Filed: 09/17/24 21:52> Clinical Impression: Liver abscess, Liver mass, Leukocytosis, Nausea & vomiting Disposition: OTHER INSTITUTION NOT DEFINED Condition: Serious Referrals: [facility] [NON-STAFF] - 1-2 days [facility] [NON-STAFF] - 1-2 days None,Stated [Primary Care Provider] - 1-2 days Forms: [facility] PCPs
[2024-09-17] MEDS: ONDANSETRON 4 MG/2 ML VIAL IVP STA (18:06)
[2024-09-17] MEDS: MORPHINE SULFATE 2 MG/ML SYRINGE IVP ONE (18:06)
[2024-09-17 19:02] LABS: INR 1.2 (<1.2); Partial Thromboplastin Time 24.8 sec (22.0-30.0); Prothrombin Time 12.7 sec (10.0-12.5)
[2024-09-17 19:06] LABS: ALT 16 U/L (4-34); AST 37 U/L (14-36); African American GFR (CKD) >90 (>60 ml/min/1.73 sqM); Albumin 3.4 g/dL (3.5-5.0); Alkaline Phosphatase 109 U/L (38-126); Anion Gap 14 mmol/L; Blood Urea Nitrogen 8 mg/dL (7-17); Calcium 8.2 mg/dL (8.4-10.2); Carbon Dioxide 25 mmol/L (22-30); Chloride 95 mmol/L (98-107); Glucose 84 mg/dL (74-99); Lipase 277 U/L (23-300); Non-African American GFR(CKD) >90 (>60 ml/min/1.73 sqM); Potassium 4.2 mmol/L (3.5-5.1); Sodium 134 mmol/L (137-145); Total Bilirubin 0.9 mg/dL (0.2-1.3); Total Protein 7.9 g/dL (6.3-8.2)
[2024-09-17 19:17] LABS: Amylase <30 U/L (30-110)
[2024-09-17 19:18] LABS: Basophils % (A) 0 %; Eosinophils % (A) 0 %; HCT 41.1 % (34.0-46.0); Lymphocytes # (A) 1.2 k/uL (1.0-4.8); Lymphocytes % (A) 8 %; MCH 30.4 pg (25.0-35.0); MCHC 32.1 g/dL (31.0-37.0); MCV 94.5 fL (80.0-100.0); Mean Platelet Volume 7.3; Monocytes # (A) 1.2 k/uL (0-1.0); Monocytes % (A) 8 %; Neutrophils # (A) 12.4 k/uL (1.3-7.7); Neutrophils % (A) 82 %; RBC 4.35 m/uL (3.80-5.40); RDW 13.9 % (11.5-15.5); WBC 15.1 k/uL (3.8-10.6)
[2024-09-17 19:24] LABS: HGB 13.2 gm/dL (11.4-16.0); Platelet Count 353 k/uL (150-450)
--- NOTE | 2024-09-17 20:50 | CT ---
EXAMINATION TYPE: CT abdomen pelvis w con DATE OF EXAM: 09/17/2024 8:07 PM COMPARISON: CT abdomen pelvis most recent from CLINICAL INDICATION: Female, 69 years old with history of abd pain; Pt had liver bx three weeks ago a nd family reports pt has severe abdominal pain, swelling, nausea, decreased PO intake. TECHNIQUE: Axial CT abdomen pelvis w con;Sagittal and coronal reformats were created on a separate w orkstation. Contrast used:100 ml mL of Isovue 370 with IV Contrast, (none if empty) Oral contrast used: without Oral Contrast (none if empty) CT DLP: 985.1 mGycm, Automated exposure control for dose reduction was used. FINDINGS: LOWER CHEST: Unremarkable 08/31/2024 ABDOMEN LIVER: Interval large fluid collection the left hepatic lobe slightly complex fluid density measuring up to 12.3 x 8.3 cm with fingerlike projection extending into the anterior abdominal wall series 201 image 30. Other fingerlike extensions are seen extending away from this into the surrounding tissues . There are multiple heterogenous masses throughout the liver. The largest measuring up to 8.6 x 5.7 x 16.9 cm GALLBLADDER AND BILE DUCTS: There is a biliary stent in the common bile duct which appears in similar position. Mild central biliary dilation noted. PANCREAS: Unremarkable. SPLEEN: Unremarkable. ADRENAL GLANDS: Unremarkable. KIDNEYS AND URETERS: No evidence of hydronephrosis or renal calculus. The ureters are unremarkable. PELVIS BLADDER: No evidence for wall thickening or mass given limitations of exam. REPRODUCTIVE: Lobular mass in the pelvis is redemonstrated measuring at least 4.8 x 3.9 cm. ABDOMEN & PELVIS STOMACH AND BOWEL: No evidence of bowel obstruction. Scattered colonic diverticula are present. PERITONEUM/RETROPERITONEUM: No evidence of pneumoperitoneum or free fluid. VASCULATURE: No evidence of aortic aneurysm. MUSCULOSKELETAL: No acute osseous abnormalities LYMPH NODES: Multiple retroperitoneal lymph nodes are present which are suspicious. Example includes 9 mm series 2 image 43. SOFT TISSUE/ABDOMINAL WALL: Unremarkable IMPRESSION: 1. Development of large intra-abdominal fluid collection in the left hepatic lobe concerning for abs cess with multiple fingerlike extension into the anterior abdominal wall and surrounding tissues. 2. Heterogenous masses throughout the liver, correlate with history/Biopsy results. 3. Biliary stent in place in stable/ satisfactory position. 4. Similar mass in the right adnexa possibly representing site of malignancy with multiple retroperi toneal lymph nodes. 5. Colonic diverticulosis. [facility], , 09/17/2024 8:47 PM
[2024-09-17] MEDS: PANTOPRAZOLE 40 MG/10 ML VIAL IVP STA (20:57)
[2024-09-17] MEDS: FAMOTIDINE 20 MG/2 ML VIAL IV STA (20:58)
[2024-09-17] MEDS: PIPERACILLIN-TAZOBACTAM 3.375 GM in SODIUM CHLORIDE 0.9% 100 ML IVPB STA (21:49)
[2024-09-17] MEDS: GABAPENTIN 300 MG CAP PO STA (21:50)
[2024-09-17 22:05] VITALS: RESP 18
[2024-09-17 23:17] VITALS: BP 131/84; PULSE 98
== END 2024-09-17 23:37 | disposition other institution (70) ==
LOC: EC 13:55
DX: K75.0 Abscess of liver (principal); D72.829 Elevated white blood cell count, unspecified; K57.30 Diverticulosis of large intestine without perforation or abscess without bleeding; Z88.5 Allergy status to narcotic agent; Z87.891 Personal history of nicotine dependence
CPT/HCPCS: 36415; 86900; 86901; 80053; 82150; 83605; 83690; 85025; 85610; 85730; 86850; 87040; 74177; 99285; 96365; 96375; J2543; J2405; J3490; J2270; Q9967; J2470

== ENCOUNTER 2024-09-30 19:09 | Observation (INO) | payer MEDICARE ==
[2024-09-30] MEDS: KETOROLAC 15 MG/ML 1 ML VIAL IM STA (20:10)
[2024-09-30] MEDS: ONDANSETRON ODT 4 MG TAB PO STA (20:10)
[2024-09-30] MEDS: tiZANidine 4 MG TAB PO PRN (20:10)
[2024-09-30] MEDS: HYDROmorphone 1 MG/ML 1 ML SYRINGE IM STA (20:10)
--- NOTE | 2024-09-30 20:18 | ED ---
General Adult HPI - General Chief complaint: Extremity Problem,Nontraumatic Stated complaint: Severe nerve pain in left leg Time Seen by Provider: 09/30/24 19:31 Source: patient Mode of arrival: EMS Limitations: no limitations - History of Present Illness Initial comments: Patient is a 69-year-old female the past medical history of neuroendocrine carcinoma presenting today for shooting pain down her left leg. Patient states pain began yesterday while she was sitting in a chair. She did not have any trauma or falls. She denies any back pain. Pain is sharp and intermittently radiates from her thigh down to her calf. Pain improves with ambulation. She denies any recent fevers, chills, chest pain, abdominal pain, difficulty in breathing, saddle anesthesia, incontinence of urine or difficulty in urinating, spinal injections, recent back surgeries, incontinence of stool, IV drug use. They called the patient's oncologist who was concerned for DVT so sent pt to the emergency department. States that she has become more easily fatigued with co nversation recently but otherwise denies shortness of breath/MALI or hemoptysis. Pt takes gabapentin at home but states this has not relieved her pain. - Related Data Home Medications Medication Instructions Recorded Confirmed Acetaminophen Tab [Tylenol Tab] 1,000 mg PO Q6HR 01/03/23 10/11/23 Ibuprofen [Motrin] 400 mg PO Q6HR PRN 01/03/23 10/11/23 Gabapentin 300 mg PO TID 10/11/23 10/18/23 Sennosides/Docusate Sodium [Senna 1 each PO DAILY PRN 10/11/23 10/11/23 Plus 8.6-50 mg Softgel] Previous Rx's Medication Instructions Recorded Ondansetron Odt [Zofran Odt] 4 mg PO Q8HR PRN #10 tab 08/31/24 Allergies Allergy/AdvReac Type Severity Reaction Status Date / Time codeine Allergy Nausea & Verified 09/30/24 19:27 Vomiting hydrocodone [From [place]] AdvReac Nausea & Verified 09/30/24 19:27 Vomiting morphine AdvReac Nausea & Verified 09/30/24 19:27 Vomiting Review of Systems ROS Statement: Those systems with pertinent positive or pertinent negative responses have been documented in the HPI. ROS Other: All systems not noted in ROS Statement are negative. Past Medical History Past Medical History: Cancer Additional Past Medical History / Comment(s): current chemo treatment neuroendocrine tumors-last chemo dose Sep-next dose due on 10-19-23,current tx w/ gabapentin for shingles pain-rash is healed under rt b reast, hx right breast with radiation and chemo in 2001, previous fall with broken rib and pneumothorax requiring chest tube 2016 History of Any Multi-Drug Resistant Organisms: None Reported Past Surgical History: Breast Surgery Additional Past Surgical History / Comment(s): 2012 BENIGN TUMOR REMOVED FROM NECK, 2001 LUMPECTOMY RIGHT BREAST, liver biopsy with cancer cells but unknown if metastasis from breast or lung, liver biopsy ( has drain ) Past Anesthesia/Blood Transfusion Reactions: No Reported Reaction Additional Past Anesthesia/Blood Transfusion Reaction / Comment(s): no hx blood transfusion Past Psychological History: No Psychological Hx Reported Smoking Status: Former smoker Past Alcohol Use History: None Reported Past Drug Use History: None Reported - Past Family History Mother Family Medical History: Cancer Additional Family Medical History / Comment(s): uterine or cervical patient unsure General Exam - General Exam Comments Initial Comments: PE: CONSTITUTIONAL: No apparent distress, painful appearing and chronically ill- appearing though nontoxic SKIN: Warm, dry, no jaundice, hives or petechiae EYES: Pupils are equally round, extraocular movements intact without nystagmus, clear conjunctiva, non-icteric sclera HENT: Normocephalic, atraumatic, moist mucus membranes, oropharynx clear without exudates NECK: , Full range of motion, normal appearance PULMONARY: Clear to auscultation without wheezes, rhonchi, or rales, normal excursion, no accessory muscle use and no stridor CARDIOVASCULAR: Regular rate, rhythm, normal S1 and S2. No appreciated murmurs, rubs or gallops. Strong radial pulses and dorsalis pedis pulses with intact distal perfusion. No lower extremity edema GASTROINTESTINAL: Soft, active bowel sounds throughout, non-tender, mildly distended with drain in place draining slightly blood tinged clear fluid, no palpable masses, no rebound or guarding. Hepatomegaly noted GENITOURINARY: MUSCULOSKELETAL: Extremities have no gross deformity, no edema, redness, or swelling. No calf swelling. No midline spinal tenderness palpation, no tenderness palpation of the sciatic notch, positive straight leg raise with raising the left leg, patient able to range leg through full range of motion, neurovascularly intact, downgoing Babinski bilaterally NEUROLOGIC:_a/o x 3, GCS 15, normal mentation and speech. Moves all extremities x 4 without motor or sensory deficit PSYCHIATRIC:_normal mood and affect, thought process is clear and linear Limitations: no limitations Course Vital Signs 09/30/24 09/30/24 09/30/24 19:27 21:40 21:56 Temperature 98.2 F Pulse Rate 104 H 92 Respiratory 24 20 15 Rate Blood Pressure 150/90 118/79 138/78 O2 Sat by Pulse 93 L 95 98 Oximetry Medical Decision Making - Medical Decision Making Was pt. sent in by a medical professional or institution (, [place], [facility], urgent care, hospital, or fdc...) When possible be specific @ -No Did you speak to anyone other than the patient for history (EMS, parent, family, police, friend...)? What history was obtained from this source @ -No Did you review nursing and triage notes (agree or disagree)? Why? @ -I reviewed and agree with nursing and triage notes Were old charts reviewed (outside hosp., previous admission, EMS record, old EKG, old radiological studies, urgent care reports/EKG's, fdc records)? Report findings @ -Medical records reviewed-Patient here on 09/17/2024 and at that point had a large intra-abdominal fluid collection on the left hepatic lobe concerning for an abscess with multiple fingerlike extensions into the anterior abdominal wall Differential Diagnosis (chest pain, altered mental status, abdominal pain women, abdominal pain men, vaginal bleeding, weakness, fever, dyspnea, syncope, headache, dizziness, GI bleed, back pain, seizure, CVA, palpatations, mental health, musculoskeletal)? @ Differential diagnosis remains broad however top considerations include radiculopathy secondary to disc herniation, subluxation, discitis, DJD, spinal stenosis, muscle strain, muscle spasm, sciatica, DVT, this is not an all- inclusive list. I did consider infectious etiology in addition to cauda equina syndrome however patient has no fevers, no additional red flag symptoms, no midline spinal tenderness to palpation, EKG interpreted by me (3pts min.). @ -As above X-rays interpreted by me (1pt min.). @ -None done CT interpreted by me (1pt min.). @I see no evidence of fracture or malalignment on CT spine U/S interpreted by me (1pt. min.). @ no signs of occlusive DVT What testing was considered but not performed or refused? (CT, X-rays, U/S, labs)? Why? @ -None What meds were considered but not given or refused? Why? @ -None Did you discuss the management of the patient with other professionals (leanne villa i.eAdina Frankel, PA, [facility], lab, RT, psych nurse, social services technician, offshore wind turbine technician, teacher, air intelligence officer, bottle caser)? Give summary @ -No Was smoking cessation discussed for >3mins.? @ -No Was critical care preformed (if so, how long)? @ -No Were there social determinants of health that impacted care today? How? (Homelessness, low income, unemployed, alcoholism, drug addiction, transportation, low edu. Level, literacy, decrease access to med. care, intermediate, rehab)? @ -No Was there de-escalation of care discussed even if they declined (Discuss DNR or withdrawal of care, Hospice)? @ -No What co-morbidities impacted this encounter? (DM, HTN, Smoking, COPD, CAD, Cancer, CVA, ARF, Chemo, Hep., AIDS, mental health diagnosis, sleep apnea, morbid obesity)? @No endocrine cancer Was patient admitted / discharged? Hospital course, mention meds given and route, prescriptions, significant lab abnormalities, going to OR and other pertinent info. @ -Admission- This is a 69-year-old female past medical history neuroendocrine cancer presenting today for sharp pain shooting down her left leg. On my assessment patient is chronically ill-appearing but nontoxic, uncomfortable appearing laying on her right side, exam significant for no midline spinal tenderness to palpation, positive straight leg raise, left lower extremity is nonerythematous, no swelling, no calf's, neurovascularly intact. Given history of cancer I will obtain a CT thoracic and lumbar spine to assess for pathologic fracture, additionally given patient's oncologist concern for DVT ultrasound ordered. Zanaflex, Toradol, IM Dilaudid ordered for pain control. Patient agreeable with plan CT and ultrasound negative for acute process. On my reassessment patient denied improvement in pain. Discussed plan for pain dose ketamine. Patient agreeable Patient given 15 mg of IV ketamine, endorsed mild improvement in symptoms however remains symptomatic with spasms shooting down her leg. Discussed admit for pain control and additional dose IV ketamine, pt agreeable with POC. Case discussed with Dr. Rajan, kindly accepts for admission, requests basic labs be ordered, CBC, CRP, CMP orders and admission orders placed. Undiagnosed new problem with uncertain prognosis? @ -No Drug Therapy requiring intensive monitoring for toxicity (Heparin, Nitro, Insulin, Cardizem)? @ -No Were any procedures done? @ -No Diagnosis/symptom? @Intractable pain, radiculopathy Acute, or Chronic, or Acute on Chronic? acute uncomplicated Side effects of treatment? @ -No Exacerbation, Progression, or Severe Exacerbation? @ -No Poses a threat to life or bodily function? How? (Chest pain, [place], [place], pneumonia, PE, COPD, DKA, ARF, appy, cholecystitis, CVA, Diverticulitis, Homicidal, Suicidal, threat to staff... and all critical care pts) @ -No - Lab Data Result diagrams: 09/30/24 23:06 09/30/24 23:06 Lab Results 09/30/24 09/30/24 Range/Units 23:06 23:06 WBC 5.4 (3.8-10.6) k/uL RBC 4.21 (3.80-5.40) m/uL Hgb 12.9 (11.4-16.0) gm/dL Hct 40.0 (34.0-46.0) % MCV 95.1 (80.0-100.0) fL MCH 30.6 (25.0-35.0) pg MCHC 32.1 (31.0-37.0) g/dL RDW 16.3 H (11.5-15.5) % Plt Count 225 (150-450) k/uL MPV 6.5 Neutrophils % 60 % Lymphocytes % 24 % Monocytes % 12 % Eosinophils % 1 % Basophils % 0 % Neutrophils # 3.2 (1.3-7.7) k/uL Lymphocytes # 1.3 (1.0-4.8) k/uL Monocytes # 0.7 (0-1.0) k/uL Eosinophils # 0.1 (0-0.7) k/uL Basophils # 0.0 (0-0.2) k/uL Anisocytosis Slight Sodium 134 L (137-145) mmol/L Potassium 4.0 (3.5-5.1) mmol/L Chloride 101 (98-107) mmol/L Carbon Dioxide 29 (22-30) mmol/L Anion Gap 4 mmol/L BUN 7 (7-17) mg/dL Creatinine 0.53 (0.52-1.04) mg/dL Est GFR (CKD-EPI)AfAm >90 (>60 ml/min/1.73 sqM) Est GFR (CKD-EPI)NonAf >90 (>60 ml/min/1.73 sqM) Glucose 116 H (74-99) mg/dL Calcium 8.0 L (8.4-10.2) mg/dL Total Bilirubin 0.4 (0.2-1.3) mg/dL AST 57 H (14-36) U/L ALT 17 (4-34) U/L Alkaline Phosphatase 83 (38-126) U/L Total Protein 7.0 (6.3-8.2) g/dL Albumin 3.2 L (3.5-5.0) g/dL Disposition Clinical Impression: Intractable pain Disposition: ADMITTED IP TO THIS [facility] Condition: Stable
--- NOTE | 2024-09-30 20:42 | US ---
EXAMINATION TYPE: US venous doppler duplex LE LT DATE OF EXAM: 09/30/2024 8:26 PM COMPARISON: NONE CLINICAL INDICATION: Female, 69 years old with history of LLE pain, oncologist concern for DVT; Pain, Pain, Swelling TECHNIQUE: The lower extremity deep venous system is examined utilizing real time linear array sonog reese with graded compression, color doppler sonography, and spectral doppler. SIDE PERFORMED: Left FINDINGS: VESSELS IMAGED: Common Femoral Vein Deep Femoral Vein Greater Saphenous Vein * Femoral Vein Popliteal Vein Small Saphenous Vein * Proximal Calf Veins (* superficial vessels) Left Leg: Negative for DVT, Color Doppler imaging shows patency of the vessels. Spectral waveforms a re within normal limits. IMPRESSION: No ultrasound evidence for deep venous thrombosis. [facility], , 09/30/2024 8:40 PM
--- NOTE | 2024-09-30 21:20 | CT ---
EXAMINATION TYPE: CT thor lumbar spine wo con DATE OF EXAM: 09/30/2024 9:03 PM COMPARISON: 09/17/2024 CLINICAL INDICATION: Female, 69 years old with history of LLE radiculopathy, hx CA, path. fx?; c/o le ft leg nerve pain TECHNIQUE: Axial images of the thoracic and lumbar spine were obtained without contrast. Coronal and sagittal reformats were performed. CT Contrast: Contrast used: mL of , none. Oral contrast used: none. CT DLP: 886.9 mGycm, Automated exposure control for dose reduction was used. FINDINGS: Multilevel degeneration changes throughout the spine. There is mild scoliosis with dextroscoliosis ap ex T12. Multilevel osteophytes and facet joint arthropathy. No evidence for fracture. No suspicious o sseous lesion. No evidence of significant spinal canal or neural foraminal stenosis. Multiple hepatic lesions are seen as seen on 09/17/2024. Biliary stent in place. IMPRESSION: 1. No evidence of fracture of the thorax or lumbar spine.. 2. No significant spinal canal or neural foraminal stenosis is identified. 3. Mild to moderate degeneration changes with scoliosis. [facility], , 09/30/2024 9:18 PM
[2024-09-30] MEDS: KETAMINE 50 MG/ML 10 ML VIAL IV ONE ×2 (21:46→23:28)
[2024-09-30 23:15] LABS: Anisocytosis Slight; Basophils % (A) 0 %; Eosinophils # (A) 0.1 k/uL (0-0.7); Eosinophils % (A) 1 %; HGB 12.9 gm/dL (11.4-16.0); Lymphocytes # (A) 1.3 k/uL (1.0-4.8); Lymphocytes % (A) 24 %; MCH 30.6 pg (25.0-35.0); MCHC 32.1 g/dL (31.0-37.0); MCV 95.1 fL (80.0-100.0); Mean Platelet Volume 6.5; Monocytes # (A) 0.7 k/uL (0-1.0); Monocytes % (A) 12 %; Neutrophils # (A) 3.2 k/uL (1.3-7.7); Neutrophils % (A) 60 %; Platelet Count 225 k/uL (150-450); RBC 4.21 m/uL (3.80-5.40); RDW 16.3 % (11.5-15.5); WBC 5.4 k/uL (3.8-10.6)
[2024-09-30] MEDS ORDERED: bisacodyL 5 MG TABLET.DR PO PRN (23:18)
[2024-09-30] MEDS ORDERED: ACETAMINOPHEN TAB 325 MG TAB PO PRN (23:18)
[2024-09-30] MEDS ORDERED: NALOXONE 0.4 MG/ML 1 ML VIAL IV PRN (23:18)
[2024-09-30] MEDS ORDERED: PROCHLORPERAZINE 5 MG TAB PO PRN (23:18)
[2024-09-30] MEDS: KETOROLAC 15 MG/ML 1 ML VIAL IVP STA (23:32)
[2024-09-30 23:42] LABS: ALT 17 U/L (4-34); AST 57 U/L (14-36); African American GFR (CKD) >90 (>60 ml/min/1.73 sqM); Albumin 3.2 g/dL (3.5-5.0); Alkaline Phosphatase 83 U/L (38-126); Anion Gap 4 mmol/L; Blood Urea Nitrogen 7 mg/dL (7-17); Carbon Dioxide 29 mmol/L (22-30); Chloride 101 mmol/L (98-107); Glucose 116 mg/dL (74-99); Non-African American GFR(CKD) >90 (>60 ml/min/1.73 sqM); Sodium 134 mmol/L (137-145); Total Bilirubin 0.4 mg/dL (0.2-1.3)
[2024-10-01] MEDS: HYDROmorphone 1 MG/ML 1 ML SYRINGE IVP PRN (00:32)
--- NOTE | 2024-10-01 01:01 | P.HPIM ---
History of Present Illness H&P Date: 09/30/24 Chief Complaint: "My left leg started hurting suddenly, and it feels like sh ooting pain in m Valerie is a patient with neuroendocrine cancer. She presented with sudden onset left leg pain that began Tuesday, which she cannot trace back to any activities. She reports the pain eliciting a shooting sensation from the thigh down to the toes. Valerie denies chest pain, shortness of breath, fever, chills, cough, burning during urination, or bleeding during bowel movements. She is currently managing an abscess in her liver following a biopsy performed about three weeks ago. Valerie is on antibiotics for the abscess but forgot to bring the medications to the hospital. The pain in her leg seems to limit her ability to walk comfortably. Past imaging and a CT scan were reported normal recently, but she has been advised that an MRI might be necessary if pain persists. Valerie lives independently and engages in daily activities without assistance. She denies smoking, drinking alcohol, or using illicit drugs.. Status post liver biopsy approximately 3 weeks ago that resulted in an abscess, requiring tube drainage a week ago Tuesday. Flagyl 500 mg - taken at home, frequency not specified - for liver abscess. Cedafir - but dosage and frequency not provided. Additionally, she takes Tylenol for pain management, but no side effects reported. No current medications were taken in the hospital as of the visit. Neuroendocrine cancer. Recent biopsy indicated complications leading to an abscess in the liver. No known diabetes or hypertension documented. Vital monitoring shows stable blood sugar and blood pressure, but specific values were not recorded. Review of systems General: No fatigue or malaise reported.
Cardiovascular: No chest pain or palpitations.
Respiratory: No cough, shortness of breath, or respiratory distress.
Gastrointestinal: No nausea, vomiting, diarrhea, constipation, or abdominal pain apart from the leg pain noted.
Neurological: Reports blurry vision, possibly due to gabapentin.
Musculoskeletal: Complains of pain as described.
Skin: No rashes or lesions reported. Constitutional: No acute distress, conversant, pleasant Eyes: Anicteric sclerae, moist conjunctiva, Pupils equal round reactive to light ENMT: NC/AT Oropharynx clear, no erythema, or exudates Neck: Supple, no masses, or JVD No carotid bruits No thyromegaly Lungs: Clear to auscultation Clear to percussion Normal respiratory effort, no accessory muscle use Cardiovascular: Heart regular in rate and rhythm, No murmurs, gallops, or rubs No peripheral edema Abdominal: Soft Nontender, no guarding, rebound or rigidity Abdomen moving with respiration Normoactive bowel sounds Extremities: No digital cyanosis No clubbing Pedal pulses intact and symmetrical Radial pulses intact and symmetrical No calf tenderness Psychiatric: Alert and oriented to person, place and time Appropriate affect fair judgement Neuro Muscles Strength 4/5 in all 4 extremities Sensation to light touch grossly present throughout Cranial nerves II-XII grossly intact Past Medical History Past Medical History: Cancer Additional Past Medical History / Comment(s): current chemo treatment neuroendocrine tumors-last chemo dose Sep-next dose due on 10-19-23,current tx w/ gabapentin for shingles pain-rash is healed under rt breast, hx right breast with radiation and chemo in 2001, previous fall with broken rib and pneumothorax requiring chest tube 2016 History of Any Multi-Drug Resistant Organisms: None Reported Past Surgical History: Breast Surgery Additional Past Surgical History / Comment(s): 2012 BENIGN TUMOR REMOVED FROM NECK, 2001 LUMPECTOMY RIGHT BREAST, liver biopsy with cancer cells but unknown if metastasis from breast or lung, liver biopsy ( has drain ) Past Anesthesia/Blood Transfusion Reactions: No Reported Reaction Additional Past Anesthesia/Blood Transfusion Reaction / Comment(s): no hx blood transfusion Past Psychological History: No Psychological Hx Reported Smoking Status: Former smoker Past Alcohol Use History: None Reported Past Drug Use History: None Reported - Past Family History Mother Family Medical History: Cancer Additional Family Medical History / Comment(s): uterine or cervical patient unsure Medications and Allergies Home Medications Medication Instructions Recorded Confirmed Type Acetaminophen Tab [Tylenol Tab] 1,000 mg PO Q6HR 01/03/23 10/11/23 History Ibuprofen [Motrin] 400 mg PO Q6HR PRN 01/03/23 10/11/23 History RX: Gabapentin 300 mg PO TID 10/11/23 10/18/23 History Sennosides/Docusate Sodium [Senna 1 each PO DAILY PRN 10/11/23 10/11/23 History Plus 8.6-50 mg Softgel] Ondansetron Odt [Zofran Odt] 4 mg PO Q8HR PRN #10 tab 08/31/24 Rx Allergies Allergy/AdvReac Type Severity Reaction Status Date / Time codeine Allergy Nausea & Verified 09/30/24 19:27 Vomiting hydrocodone [From [place]] AdvReac Nausea & Verified 09/30/24 19:27 Vomiting morphine AdvReac Nausea & Verified 09/30/24 19:27 Vomiting Physical Exam Vitals: Vital Signs Temp Pulse Resp BP Pulse Ox 09/30/24 21:56 92 15 138/78 98 09/30/24 21:40 20 118/79 95 09/30/24 19:27 98.2 F 104 H 24 150/90 93 L Intake and Output 09/30/24 09/30/24 10/01/24 14:59 22:59 06:59 Other: Weight 71.668 kg Results CBC & Chem 7: 09/30/24 23:06 09/30/24 23:06 Labs: Abnormal Lab Results - Last 24 Hours (Table) 09/30/24 09/30/24 Range/Units 23:06 23:06 RDW 16.3 H (11.5-15.5) % Sodium 134 L (137-145) mmol/L Glucose 116 H (74-99) mg/dL Calcium 8.0 L (8.4-10.2) mg/dL AST 57 H (14-36) U/L Albumin 3.2 L (3.5-5.0) g/dL Assessment and Plan Assessment: Assessment and plan 69-year-old female with neuroendocrine tumor coming in for sudden onset left lower extremity shooting pain I discussed case with ED doctor accepted the admission for pain control with anticipated length of stay less than 2 midnights Left lower extremity pain CT imaging of the l thoracolumbar spine showed no acute fracture of the thoracolumbar spine, no significant spinal canal or neural foraminal stenosis. Showed some mild to moderate degenerative changes with scoliosis Pain control with Dilaudid 1 mg IV push every 3 hours as needed Fall precautions If pain persists consider MRI of the lumbar spine Venous Doppler ultrasound left lower extremity no acute DVT Liver abscess Drain in place Continue home antibiotics Flagyl and cefdinir once doses are confirmed Blood work is pending unavailable at this time Full code DVT prophylaxis heparin subcu 3 times daily 5000 units
[2024-10-01] MEDS: MAG HYDROX/AL HYDROX/SIMETH 30 ML CUP PO PRN (03:21)
[2024-10-01] MEDS: ALPRAZolam 0.25 MG TAB PO PRN (03:24)
[2024-10-01] MEDS: HYDROmorphone 0.5 MG/0.5 ML SYRINGE IVP PRN (03:26)
[2024-10-01 06:36] VITALS: RESP 16
[2024-10-01 09:17] VITALS: BP 154/85; PULSE 88; TEMP 97.7
[2024-10-01] MEDS: metroNIDAZOLE 500 MG TAB PO SCH (09:25)
[2024-10-01] MEDS: CEFDINIR 300 MG CAP PO SCH (09:26)
[2024-10-01] MEDS: FAMOTIDINE 20 MG TAB PO SCH (09:26)
[2024-10-01] MEDS: ENOXAPARIN 40 MG/0.4 ML SYRINGE SQ SCH (09:26)
--- NOTE | 2024-10-01 12:25 | XR ---
EXAMINATION TYPE: XR Hip LT and AP Pelvis DATE OF EXAM: 10/01/2024 12:02 PM COMPARISON: None CLINICAL INDICATION: Female, 69 years old with history of pain; TECHNIQUE: XR Hip LT and AP Pelvis; hip was examined in the frontal and lateral projections and a AP pelvis. FINDINGS: No evidence for acute process, joint dislocation or significant soft tissue swelling. Osteo phyte formation of the superior acetabulum of the hip. There is mild joint space narrowing. IMPRESSION: 1. No evidence for acute process. 2. Mild hip osteoarthrosis. [facility], , 10/01/2024 12:23 PM
--- NOTE | 2024-10-01 12:57 | P.DS ---
Providers Date of admission: 09/30/24 23:18 Expected date of discharge: 10/01/24 Attending physician: Adela Rajan MD Primary care physician: Stated None Hospital Course: Discharge Diagnosis: Left leg radiculopathy Neuroendocrine cancer on chemo History of breast cancer Recent liver abscess status post drain Hospital Course: 69-year-old female with history of neuroendocrine cancer on chemo, breast cancer, status postlumpectomy, radiation and chemo, recent liver abscess on antibiotics presenting with few days of anterior thigh pain going down her left leg. Lower extremity Dopplers negative for DVT. Thoracic lumbar spine CT did not show any fractures or significant spinal canal or neural foraminal stenosis, did show mild to moderate degeneration changes with scoliosis. Hip pelvis x-ray did not show any acute process, mild hip osteoarthrosis. Laboratory workup unremarkable. Pain resolved during the course of observation. Patient being discharged home on short course of as needed [place]. Follow-up with PCP and orthopedic surgery. Patient seen and examined at bedside. Vital signs reviewed and stable. General: Nontoxic, no distress, appears at stated age Derm: Warm, dry Head: Atraumatic, normocephalic, symmetric Eyes: EOMI, no lid lag, anicteric sclera Mouth: No lip lesion, mucus membranes moist Cardiovascular: S1S2 reg, no murmur Lungs: CTA bilateral, no rhonchi, no rales, no accessory muscle use Abdominal: Soft, nontender to palpation, no guarding, no appreciable organomegaly Ext: No gross muscle atrophy, no edema, no contractures Neuro: CN II-XI grossly intact, no focal neuro deficits Psych: Alert, oriented, appropriate affect A total of 36 minutes of time were spent preparing this complex discharge summary. Patient was discharged on 10/01/2024 at 1247. Patient Condition at Discharge: Stable Plan - Discharge Summary New Discharge Prescriptions: New HYDROcodone/APAP 5-325MG [[place] 5-325] 1 tab PO Q6HR PRN 3 Days #12 tab PRN Reason: Severe Breakthrough Pain Continue metroNIDAZOLE [Flagyl] 500 mg PO BID Cefdinir [Omnicef] 300 mg PO BID Gabapentin 600 mg PO TID Discharge Medication List Cefdinir [Omnicef] 300 mg PO BID 10/01/24 [History] Gabapentin 600 mg PO TID 10/01/24 [History] HYDROcodone/APAP 5-325MG [[place] 5-325] 1 tab PO Q6HR PRN 3 Days #12 tab 10/01/24 [Rx] metroNIDAZOLE [Flagyl] 500 mg PO BID 10/01/24 [History] Follow up Appointment(s)/Referral(s): [facility] [NON-STAFF] - 1 Week Abdifatah Joaquin MD [Medical Doctor] - 1 Week Patient Instructions/Handouts: Hip Pain (GEN) Activity/Diet/Wound Care/Special Instructions: Please see your PCP and orthopedic surgery. Discharge Disposition: HOME SELF-CARE
== END 2024-10-01 13:23 | disposition home or self-care (01) ==
LOC: EC 19:09 → 6NMEDSUR 23:18 → 1SOBS 10-01 10:07
PROVIDERS: ADMIT Internal Medicine; ATTEND Internal Medicine
DX: M54.10 Radiculopathy, site unspecified (principal); D3A.8 Other benign neuroendocrine tumors; K75.0 Abscess of liver; Z79.899 Other long term (current) drug therapy; Z88.5 Allergy status to narcotic agent; Z87.891 Personal history of nicotine dependence; Z85.3 Personal history of malignant neoplasm of breast
CPT/HCPCS: 96376; 96372; 96374; 96375; 99285; 36415; 80053; 85025; 86140; 73502; 93971; 72128; 72131; G0378 ×2; J1650; J1171 ×3; J1885

== ENCOUNTER 2024-10-03 18:06 | Inpatient (IN) | payer MEDICARE, OTHER ==
[2024-10-03] MEDS: HYDROmorphone 1 MG/ML 1 ML SYRINGE IVP STA (20:03)
--- NOTE | 2024-10-03 22:17 | CT ---
EXAMINATION TYPE: CT abdomen pelvis w con DATE OF EXAM: 10/03/2024 9:57 PM COMPARISON: CT abdomen pelvis most recent from 09/17/2024 01/01/2020 and 08/31/2024 CLINICAL INDICATION: Female, 69 years old with history of left leg pain, hx intraabdominal abscess; P ain from left hip down to left ankle. Liver biopsy done on 08/31/24. (drain to be removed Tuesday). CT at different hospital done today. TECHNIQUE: Axial CT abdomen pelvis w con;Sagittal and coronal reformats were created on a separate w orkstation. Contrast used:100 ml mL of Isovue 300 with IV Contrast, (none if empty) Oral contrast used: without Oral Contrast (none if empty) CT DLP: 861.6 mGycm, Automated exposure control for dose reduction was used. FINDINGS: LOWER CHEST: Unremarkable ABDOMEN LIVER: Multiple large liver lesions largest in the right lateral aspect of the left hepatic lobe segm ent 4A measuring up to a 4 mm in the right hepatic lobe measuring up to a 7 mm. GALLBLADDER AND BILE DUCTS: Biliary stent with inferior portion terminating in the duodenum and the s uperior portion in the common bile duct is present. There is a second portion duodenal diverticulum p resent. PANCREAS: Unremarkable. SPLEEN: Small splenule is present. ADRENAL GLANDS: Unremarkable. KIDNEYS AND URETERS: No evidence of hydronephrosis or renal calculus. The ureters are unremarkable. PELVIS BLADDER: No evidence for wall thickening or mass given limitations of exam. REPRODUCTIVE: Right adnexal mass measuring 56 x 40 mm. Previously 30 x 24 mm on 07/05/2023. ABDOMEN & PELVIS STOMACH AND BOWEL: No evidence of bowel obstruction. The appendix is within normal limits. There is o ral contrast extending throughout the colon. Contrast extends to the rectum. PERITONEUM/RETROPERITONEUM: No evidence of pneumoperitoneum. Anterior abdominal pigtail catheter term inating just anterior to the liver as focus of gas pattern. No persistent fluid definitively visualiz ed. The fluid collection extending to the anterior abdominal wall is also resolved. VASCULATURE: No evidence of aortic aneurysm. MUSCULOSKELETAL: No acute osseous abnormalities. The left hip demonstrates no sizable joint effusion identified. No evidence for osseous erosion. The hips appear relatively small symmetric and similar t o prior imaging on 09/09/2024. LYMPH NODES: Lymphadenopathy seen throughout the retroperitoneum with multiple lymph nodes present in cludes left 14 mm in short axis series 201 image 40 right 18 mm in short axis image 33. SOFT TISSUE/ABDOMINAL WALL: Unremarkable IMPRESSION: 1. No appreciable left hip joint effusion. No evidence for abscess within the left lower extremity. No evidence for osseous erosion involving the left hip. The hips hips appear relatively symmetric and similar to prior imaging on 09/09/2024. No CT evidence for septic joint of the left hip. Clinical co rrelation and consideration for orthopedic consultation for septic hip remains concern. 2. Pigtail catheter situated just anterior to left hepatic lobe, no significant fluid remaining in t he cavity. 3. Hepatic masses present. 4. Common bile duct biliary stent with superior and inferior ends terminating in appropriate positio n. 5. Right adnexal mass has increased in size from 07/05/2023. Possibly ovarian in etiology. 6. Extensive retroperitoneal lymphadenopathy likely secondary to metastatic disease seen throughout the abdomen. [facility], Workstation: [id number], 10/03/2024 10:15 PM
[2024-10-03 22:54] LABS: ALT 14 U/L (4-34); AST 53 U/L (14-36); African American GFR (CKD) >90 (>60 ml/min/1.73 sqM); Albumin 3.7 g/dL (3.5-5.0); Alkaline Phosphatase 76 U/L (38-126); Anion Gap 4 mmol/L; Blood Urea Nitrogen 4 mg/dL (7-17); Calcium 8.2 mg/dL (8.4-10.2); Carbon Dioxide 32 mmol/L (22-30); Chloride 98 mmol/L (98-107); Glucose 97 mg/dL (74-99); Non-African American GFR(CKD) >90 (>60 ml/min/1.73 sqM); Potassium 3.7 mmol/L (3.5-5.1); Sodium 134 mmol/L (137-145); Total Bilirubin 0.7 mg/dL (0.2-1.3); Total Protein 7.6 g/dL (6.3-8.2)
[2024-10-03] MEDS ORDERED: NALOXONE 0.4 MG/ML 1 ML VIAL IV PRN (22:59)
--- NOTE | 2024-10-03 22:59 | ED ---
General Adult HPI - General Chief complaint: Back Pain/Injury Stated complaint: L leg pain Time Seen by Provider: 10/03/24 18:19 Source: patient Mode of arrival: wheelchair Limitations: no limitations - History of Present Illness Initial comments: 69-year-old female presents to the emergency department for left hip pain. Patient has a history of neuroendocrine tumor. She recently had an abscess drained in her abdomen and has a ROZINA drain in place. She began having pain in her left hip starting on the . She describes it as a sharp pain which radiates down the anterior aspect of her thigh. Pain is positional in nature. She denies any trauma. Denies any back pain. No saddle anesthesia, bowel or bladder incontinence or retention. Patient has no known metastasis to her back or bones. She denies any numbness or tingling in the extremity. She denies any abdominal pain. No chest pain or difficulty breathing. Patient was sent to the emergency department on the and had an ultrasound, x-rays and a CT of her spine performed. Patient previously did not take any pain medications. She was admitted to the hospital at that time. Had pain control and home. Patient reports that she called to make an appointment with orthopedics however it is not until next . She is post have a drain taken out on Tuesday. She did have a CT at [facility] today to see if the drain could be removed. Denies any fevers. No other alleviating, precipitating or modifying factors - Related Data Home Medications Medication Instructions Recorded Confirmed Cefdinir [Omnicef] 300 mg PO BID 10/01/24 10/04/24 Gabapentin 600 mg PO TID 10/01/24 10/04/24 metroNIDAZOLE [Flagyl] 500 mg PO BID 10/01/24 10/04/24 Previous Rx's Medication Instructions Recorded HYDROmorphone [Dilaudid] 2 mg PO Q3H PRN 3 Days #24 tab 10/08/24 Allergies Allergy/AdvReac Type Severity Reaction Status Date / Time codeine AdvReac Nausea & Verified 10/04/24 08:39 Vomiting hydrocodone [From [place]] AdvReac Nausea & Verified 10/04/24 08:39 Vomiting morphine AdvReac Nausea & Verified 10/04/24 08:39 Vomiting Review of Systems ROS Statement: Those systems with pertinent positive or pertinent negative responses have been documented in the HPI. ROS Other: All systems not noted in ROS Statement are negative. Past Medical History Past Medical History: Cancer Additional Past Medical History / Comment(s): current chemo treatment neuroendocrine tumors-last chemo dose Sep-next dose due on 10-19-23,current tx w/ gabapentin for shingles pain-rash is healed under rt breast, hx right breast with radiation and chemo in 2001, previous fall with broken rib and pneumothorax requiring chest tube 2016 History of Any Multi-Drug Resistant Organisms: None Reported Past Surgical History: Breast Surgery Additional Past Surgical History / Comment(s): 2012 BENIGN TUMOR REMOVED FROM NECK, 2001 LUMPECTOMY RIGHT BREAST, liver biopsy with cancer cells but unknown if metastasis from breast or lung, liver biopsy ( has drain ) Past Anesthesia/Blood Transfusion Reactions: No Reported Reaction Additional Past Anesthesia/Blood Transfusion Reaction / Comment(s): no hx blood transfusion Past Psychological History: No Psychological Hx Reported Smoking Status: Former smoker Past Alcohol Use History: None Reported Past Drug Use History: None Reported - Past Family History Mother Family Medical History: Cancer Additional Family Medical History / Comment(s): uterine or cervical patient unsure General Exam Limitations: no limitations General appearance: alert, in no apparent distress Head exam: Present: atraumatic, normocephalic, normal inspection Eye exam: Present: normal appearance, PERRL, EOMI. Absent: scleral icterus, conjunctival injection, periorbital swelling ENT exam: Present: normal exam, mucous membranes moist Neck exam: Present: normal inspection. Absent: tenderness, meningismus, lympha denopathy Respiratory exam: Present: normal lung sounds bilaterally. Absent: respiratory distress, wheezes, rales, rhonchi, stridor Cardiovascular Exam: Present: regular rate, normal rhythm, normal heart sounds. Absent: systolic murmur, diastolic murmur, rubs, gallop, clicks GI/Abdominal exam: Present: soft, normal bowel sounds. Absent: distended, tenderness, guarding, rebound, rigid Extremities exam: Present: tenderness (Extreme tenderness to palpation of the left hip. No erythema or edema), normal capillary refill. Absent: pedal edema, joint swelling, calf tenderness Back exam: Present: normal inspection Neurological exam: Present: alert, oriented X3, CN II-XII intact Psychiatric exam: Present: normal affect, normal mood Skin exam: Present: warm, dry, intact, normal color. Absent: rash Course Vital Signs 10/03/24 10/03/24 10/04/24 18:10 23:03 05:53 Temperature 98.2 F 98.8 F 97.8 F Pulse Rate 100 95 99 Pulse Rate [ Pulse Oximetery ] Respiratory 20 18 20 Rate Blood Pressure 152/96 124/85 143/88 Blood Pressure [Left Arm] O2 Sat by Pulse 94 L 96 95 Oximetry 10/04/24 10/04/24 10/04/24 08:35 10:40 12:30 Temperature 98.5 F Pulse Rate 16 L 98 75 Pulse Rate [ Pulse Oximetery ] Respiratory 96 H 22 22 Rate Blood Pressure 149/89 164/96 149/89 Blood Pressure [Left Arm] O2 Sat by Pulse 94 L 96 96 Oximetry 10/04/24 10/04/24 10/04/24 15:00 15:11 15:57 Temperature 98.9 F 100 F H Pulse Rate 96 96 Pulse Rate [ 97 Pulse Oximetery ] Respiratory 18 16 20 Rate Blood Pressure 145/99 135/80 Blood Pressure 148/87 [Left Arm] O2 Sat by Pulse 94 L 97 94 L Oximetry Medical Decision Making - Medical Decision Making Was pt. sent in by a medical professional or institution (, PA, SHOE COBBLER, urgent care, hospital, or senior living...) When possible be specific @ -No Did you speak to anyone other than the patient for history (EMS, parent, family, police, friend...)? What history was obtained from this source @ -Spoke with for history Did you review nursing and triage notes (agree or disagree)? Why? @ -I reviewed and agree with nursing and triage notes Were old charts reviewed (outside hosp., previous admission, EMS record, old EKG, old radiological studies, urgent care reports/EKG's, senior living records)? Report findings @ -No old charts were reviewed Differential Diagnosis (chest pain, altered mental status, abdominal pain women, abdominal pain men, vaginal bleeding, weakness, fever, dyspnea, syncope, headache, dizziness, GI bleed, back pain, seizure, CVA, palpatations, mental health, musculoskeletal)? @ -Differential Musculoskeletal Muscular strain, contusion, ligament sprain, fracture, arthritis, septic arthritis, bursitis, cellulitis, muscle spasm, nerve compression, DVT, arterial occlusion, herpes zoster, electrolyte abnormality, tumor.... This is not meant to be in all inclusive list EKG interpreted by me (3pts min.). @Not done X-rays interpreted by me (1pt min.). @ -None done CT interpreted by me (1pt min.). @ -Yes and demonstrates right adnexal enlargement U/S interpreted by me (1pt. min.). @ -None done What testing was considered but not performed or refused? (CT, X-rays, U/S, labs)? Why? @ -None What meds were considered but not given or refused? Why? @ -None Did you discuss the management of the patient with other professionals (professionals i.e. , PA, SHOE COBBLER, lab, RT, psych nurse, social worker health services, correctional lieutenant, teacher, agricultural loan officer, case investigator)? Give summary @ -Spoke with admitting physician Was smoking cessation discussed for >3mins.? @ -No Was critical care preformed (if so, how long)? @ -No Were there social determinants of health that impacted care today? How? (Homelessness, low income, unemployed, alcoholism, drug addiction, transportation, low edu. Level, literacy, decrease access to med. care, mcc, rehab)? @ -No Was there de-escalation of care discussed even if they declined (Discuss DNR or withdrawal of care, Hospice)? DNR status @ -No What co-morbidities impacted this encounter? (DM, HTN, Smoking, COPD, CAD, Cancer, CVA, ARF, Chemo, Hep., AIDS, mental health diagnosis, sleep apnea, morbid obesity)? @ -Neuroendocrine cancer Was patient admitted / discharged? Hospital course, mention meds given and route, prescriptions, significant lab abnormalities, going to OR and other pertinent info. @ -Upon arrival patient seen and evaluated in bed 32. Thorough history and physical exam was performed. Patient is in excruciating pain. She was given 1 mg of Dilaudid. I did complete a CT of the patient's abdomen pelvis which demonstrates a right sided tumor. Multiple liver tumors. No identifiable reason for the patient's left hip pain. At this time she will be admitted for orthopedic consultation as she has intractable pain. Patient was agreeable to this. Spoke with Dr. Valle for admission Undiagnosed new problem with uncertain prognosis? @ -No Drug Therapy requiring intensive monitoring for toxicity (Heparin, Nitro, Insulin, Cardizem)? @ -No Were any procedures done? @ -No Diagnosis/symptom? @ -Intractable left hip pain, history of endocrine cancer Acute, or Chronic, or Acute on Chronic? @Acute Uncomplicated (without systemic symptoms) or Complicated (systemic symptoms)? @ -Complicated Side effects of treatment? @ -No Exacerbation, Progression, or Severe Exacerbation? @ -No Poses a threat to life or bodily function? How? (Chest pain, [place], [place], pneumonia, PE, COPD, DKA, ARF, appy, cholecystitis, CVA, Diverticulitis, Homicidal, Suicida l, threat to staff... and all critical care pts) @ -No - Lab Data Result diagrams: 10/08/24 07:43 10/08/24 07:43 Lab Results 10/03/24 10/03/24 10/03/24 Range/Units 22:35 22:55 22:55 WBC 7.9 (3.8-10.6) k/uL RBC 4.36 (3.80-5.40) m/uL Hgb 13.4 (11.4-16.0) gm/dL Hct 41.2 (34.0-46.0) % MCV 94.5 (80.0-100.0) fL MCH 30.7 (25.0-35.0) pg MCHC 32.4 (31.0-37.0) g/dL RDW 16.8 H (11.5-15.5) % Plt Count 196 (150-450) k/uL MPV 7.5 Neutrophils % 66 % Lymphocytes % 23 % Monocytes % 8 % Eosinophils % 2 % Basophils % 0 % Neutrophils # 5.2 (1.3-7.7) k/uL Lymphocytes # 1.8 (1.0-4.8) k/uL Monocytes # 0.6 (0-1.0) k/uL Eosinophils # 0.2 (0-0.7) k/uL Basophils # 0.0 (0-0.2) k/uL Hypochromasia Anisocytosis Slight Macrocytosis ESR 86 H (0-30) mm/Hr Sodium 134 L (137-145) mmol/L Potassium 3.7 (3.5-5.1) mmol/L Chloride 98 (98-107) mmol/L Carbon Dioxide 32 H (22-30) mmol/L Anion Gap 4 mmol/L BUN 4 L (7-17) mg/dL Creatinine 0.43 L (0.52-1.04) mg/dL Est GFR (CKD-EPI)AfAm >90 (>60 ml/min/1.73 sqM) Est GFR (CKD-EPI)NonAf >90 (>60 ml/min/1.73 sqM) Glucose 97 (74-99) mg/dL Plasma Lactic Acid Collin 1.0 (0.7-2.0) mmol/L Calcium 8.2 L (8.4-10.2) mg/dL Magnesium (1.6-2.3) mg/dL Total Bilirubin 0.7 (0.2-1.3) mg/dL AST 53 H (14-36) U/L ALT 14 (4-34) U/L Alkaline Phosphatase 76 (38-126) U/L C-Reactive Protein 1.30 H (0.00-0.80) mg/dL Total Protein 7.6 (6.3-8.2) g/dL Albumin 3.7 (3.5-5.0) g/dL 10/04/24 10/04/24 10/05/24 Range/Units 07:07 07:07 07:11 WBC 8.4 (3.8-10.6) k/uL RBC 4.05 (3.80-5.40) m/uL Hgb 12.3 (11.4-16.0) gm/dL Hct 39.3 (34.0-46.0) % MCV 96.9 (80.0-100.0) fL MCH 30.2 (25.0-35.0) pg MCHC 31.2 (31.0-37.0) g/dL RDW 16.4 H (11.5-15.5) % Plt Count 171 (150-450) k/uL MPV 6.4 Neutrophils % 75 % Lymphocytes % 12 % Monocytes % 10 % Eosinophils % 1 % Basophils % 0 % Neutrophils # 6.3 (1.3-7.7) k/uL Lymphocytes # 1.0 (1.0-4.8) k/uL Monocytes # 0.8 (0-1.0) k/uL Eosinophils # 0.1 (0-0.7) k/uL Basophils # 0.0 (0-0.2) k/uL Hypochromasia Slight Anisocytosis Slight Macrocytosis Slight ESR (0-30) mm/Hr Sodium 135 L 133 L (137-145) mmol/L Potassium 3.5 3.4 L (3.5-5.1) mmol/L Chloride 99 101 (98-107) mmol/L Carbon Dioxide 28 29 (22-30) mmol/L Anion Gap 8 3 mmol/L BUN 4 L 5 L (7-17) mg/dL Creatinine 0.44 L 0.42 L (0.52-1.04) mg/dL Est GFR (CKD-EPI)AfAm >90 >90 (>60 ml/min/1.73 sqM) Est GFR (CKD-EPI)NonAf >90 >90 (>60 ml/min/1.73 sqM) Glucose 109 H 103 H (74-99) mg/dL Plasma Lactic Acid Collin (0.7-2.0) mmol/L Calcium 8.2 L 7.9 L (8.4-10.2) mg/dL Magnesium 1.7 (1.6-2.3) mg/dL Total Bilirubin (0.2-1.3) mg/dL AST (14-36) U/L ALT (4-34) U/L Alkaline Phosphatase (38-126) U/L C-Reactive Protein (0.00-0.80) mg/dL Total Protein (6.3-8.2) g/dL Albumin (3.5-5.0) g/dL Disposition Clinical Impression: Hip pain Disposition: ADMITTED IP TO THIS [facility] Condition: Stable Is patient prescribed a controlled substance at d/c from ED?: No Time of Disposition: 22:58 Decision to Admit Reason: Admit from EC Decision Date: 10/03/24 Decision Time: 22:58
[2024-10-03] MEDS: HYDROmorphone 0.5 MG/0.5 ML SYRINGE IVP STA (23:02)
[2024-10-03 23:15] LABS: Anisocytosis Slight; Basophils % (A) 0 %; Eosinophils # (A) 0.2 k/uL (0-0.7); Eosinophils % (A) 2 %; HCT 41.2 % (34.0-46.0); HGB 13.4 gm/dL (11.4-16.0); Lymphocytes # (A) 1.8 k/uL (1.0-4.8); Lymphocytes % (A) 23 %; MCH 30.7 pg (25.0-35.0); MCHC 32.4 g/dL (31.0-37.0); MCV 94.5 fL (80.0-100.0); Mean Platelet Volume 7.5; Monocytes # (A) 0.6 k/uL (0-1.0); Monocytes % (A) 8 %; Neutrophils # (A) 5.2 k/uL (1.3-7.7); Neutrophils % (A) 66 %; Platelet Count 196 k/uL (150-450); RBC 4.36 m/uL (3.80-5.40); RDW 16.8 % (11.5-15.5); WBC 7.9 k/uL (3.8-10.6)
--- NOTE | 2024-10-03 23:38 | P.HPIM ---
History of Present Illness H&P Date: 10/03/24 Chief Complaint: L hip pain history of present illness; 69-year-old female with neuroendocrine cancer on chemo, breast cancer, status postlumpectomy, radiation and chemo, recent liver abscess on antibiotics presenting with left hip pain. Of note patient was recently admitted for similar plants 3 days ago where she received imaging of the spine and hips which did not show acute fracture. Her pain at that time was managed with IV Dilaudid which eventually led to resolution of her pain. Reports that since she is left the hospital she has continued to have left hip pain even while taking oral pain medication. Reports this morning she took the pain medication around 8 AM and her pain was controlled, but when she took the second dose around 2 PM she noticed the pain remained and it became too much for her to bear. Denies headache, chest pain, shortness of breath, palpitations, abdominal pain, nausea, vomiting, diarrhea, constipation, lower extremity swelling. Admits to left hip pain. ER CT ABD: No appreciable left hip joint effusion. No evidence for abscess within the left lower extremity. No evidence for osseous erosion involving the left hip. Hips appear relatively symmetric and similar to imaging done on 09/09/2024. No evidence for septic joint of the left hip. REVIEW OF SYSTEMS: As stated above in the HPI. The rest of the 14-point review of systems is negative. PHYSICAL EXAMINATION: GENERAL: The patient is alert and oriented x3, not in any acute distress. Well developed, well nourished. HEENT: Pupils are round and equally reacting to light. EOMI. No scleral icterus. No conjunctival pallor. Normocephalic, atraumatic. No pharyngeal erythema. No thyromegaly. CARDIOVASCULAR: S1 and S2 present. No murmurs, rubs, or gallops. PULMONARY: Chest is clear to auscultation b/l, no wheezing or crackles. ABDOMEN: Soft, nontender, nondistended, normoactive bowel sounds. No palpable organomegaly. Drain in place centrally with no surrounding erythema or discharge noted. MUSCULOSKELETAL: No joint swelling or deformity. Significant tenderness to gentle palpation of the left hip. EXTREMITIES: No cyanosis, clubbing, or pedal edema. NEUROLOGICAL: Gross neurological examination did not reveal any focal deficits. SKIN: No rashes. Assessment: 69-year-old female with neuroendocrine cancer on chemo, breast cancer, status postlumpectomy, radiation and chemo, recent liver abscess on a ntibiotics presenting with left hip pain. Patient admitted for management and further workup of persistent left hip pain. Plan: #Left lower extremity pain: -CT imaging showed no left hip effusion, no evidence for abscess within the left lower extremity, no evidence for osseous erosion involving the left hip, and hip appears similar to previous imaging taken August of this year -Pain control with Dilaudid 1 mg IV push every 3 hours as needed -Fall precautions -Received venous Doppler ultrasound 3 days ago of the lower extremities which showed no acute DVT -Consider MRI of the left hip if pain is not controlled with current medication regiment #Liver abscess: Developed after liver biopsy. -Drain in place -Continue home antibiotics Flagyl and cefdinir once confirmed by pharmacy #Transaminitis: -AST 53, ALT 14, and T. bili 0.7 -Patient currently taking cefdinir at home which could potentially be causing the transaminitis -Continue to monitor F: NS 50 cc/h E: None N: Regular diet DVT ppx: Lovenox 40 SQ daily GI ppx: Protonix 40 mg p.o. daily Dispo: Pending clinical course, anticipate length of stay less than 2 midnights Lizeth Montague MD PGY-1 FM Dictation was produced using [employer] dictation software. please excuse any grammatical, word or spelling errors. Past Medical History Past Medical History: Cancer Additional Past Medical History / Comment(s): current chemo treatment neuroendocrine tumors-last chemo dose Sep-next dose due on 10-19-23,current tx w/ gabapentin for shingles pain-rash is healed under rt breast, hx right breast with radiation and chemo in 2001, previous fall with broken rib and pneumothorax requiring chest tube 2016 History of Any Multi-Drug Resistant Organisms: None Reported Past Surgical History: Breast Surgery Additional Past Surgical History / Comment(s): 2012 BENIGN TUMOR REMOVED FROM NECK, 2001 LUMPECTOMY RIGHT BREAST, liver biopsy with cancer cells but unknown if metastasis from breast or lung, liver biopsy ( has drain ) Past Anesthesia/Blood Transfusion Reactions: No Reported Reaction Additional Past Anesthesia/Blood Transfusion Reaction / Comment(s): no hx blood transfusion Past Psychological History: No Psychological Hx Reported Smoking Status: Former smoker Past Alcohol Use History: None Reported Past Drug Use History: None Reported - Past Family History Mother Family Medical History: Cancer Additional Family Medical History / Comment(s): uterine or cervical patient unsure Medications and Allergies Home Medications Medication Instructions Recorded Confirmed Type Cefdinir [Omnicef] 300 mg PO BID 10/01/24 10/01/24 History Gabapentin 600 mg PO TID 10/01/24 10/01/24 History HYDROmorphone [Dilaudid] 2 mg PO Q6H PRN 3 Days #12 tab 10/01/24 Rx HYDROmorphone [Dilaudid] 2 mg PO Q6H PRN 3 Days #12 tab 10/01/24 Rx metroNIDAZOLE [Flagyl] 500 mg PO BID 10/01/24 10/01/24 History Allergies Allergy/AdvReac Type Severity Reaction Status Date / Time codeine Allergy Nausea & Verified 10/03/24 18:16 Vomiting hydrocodone [From [place]] AdvReac Nausea & Verified 10/03/24 18:16 Vomiting morphine AdvReac Nausea & Verified 10/03/24 18:16 Vomiting Physical Exam Vitals: Vital Signs Temp Pulse Resp BP Pulse Ox 10/03/24 23:03 98.8 F 95 18 124/85 96 10/03/24 18:10 98.2 F 100 20 152/96 94 L Intake and Output 10/03/24 10/03/24 10/04/24 14:59 22:59 06:59 Other: Weight 71.668 kg Results CBC & Chem 7: 10/03/24 22:55 10/03/24 22:35 Labs: Abnormal Lab Results - Last 24 Hours (Table) 10/03/24 10/03/24 Range/Units 22:35 22:55 RDW 16.8 H (11.5-15.5) % Sodium 134 L (137-145) mmol/L Carbon Dioxide 32 H (22-30) mmol/L BUN 4 L (7-17) mg/dL Creatinine 0.43 L (0.52-1.04) mg/dL Calcium 8.2 L (8.4-10.2) mg/dL AST 53 H (14-36) U/L Assessment and Plan Assessment: I have seen and evaluated the patient today. I Discussed the case with the resident and agree with the resident's findings I edited the assessment and plan as necessary as documented in the resident's note.
[2024-10-03] MEDS: SODIUM CHLORIDE 0.9% 1,000 ML IV SCH (23:42)
[2024-10-04 02:15] LABS: Erythrocyte Sedimentation Rate 86 mm/Hr (0-30)
[2024-10-04] MEDS: HYDROmorphone 1 MG/ML 1 ML SYRINGE IVP PRN (02:19)
[2024-10-04 07:37] LABS: Anisocytosis Slight; Basophils % (A) 0 %; Eosinophils # (A) 0.1 k/uL (0-0.7); Eosinophils % (A) 1 %; HCT 39.3 % (34.0-46.0); HGB 12.3 gm/dL (11.4-16.0); Hypochromasia Slight; Lymphocytes % (A) 12 %; MCH 30.2 pg (25.0-35.0); MCHC 31.2 g/dL (31.0-37.0); MCV 96.9 fL (80.0-100.0); Macrocytosis Slight; Mean Platelet Volume 6.4; Monocytes # (A) 0.8 k/uL (0-1.0); Monocytes % (A) 10 %; Neutrophils # (A) 6.3 k/uL (1.3-7.7); Neutrophils % (A) 75 %; Platelet Count 171 k/uL (150-450); RBC 4.05 m/uL (3.80-5.40); RDW 16.4 % (11.5-15.5); WBC 8.4 k/uL (3.8-10.6)
[2024-10-04 08:06] LABS: African American GFR (CKD) >90 (>60 ml/min/1.73 sqM); Anion Gap 8 mmol/L; Blood Urea Nitrogen 4 mg/dL (7-17); Calcium 8.2 mg/dL (8.4-10.2); Carbon Dioxide 28 mmol/L (22-30); Chloride 99 mmol/L (98-107); Glucose 109 mg/dL (74-99); Non-African American GFR(CKD) >90 (>60 ml/min/1.73 sqM); Potassium 3.5 mmol/L (3.5-5.1); Sodium 135 mmol/L (137-145)
[2024-10-04] MEDS: PANTOPRAZOLE 40 MG TABLET PO SCH (08:36)
[2024-10-04] MEDS: ENOXAPARIN 40 MG/0.4 ML SYRINGE SQ SCH (08:36)
[2024-10-04] MEDS: CEFDINIR 300 MG CAP PO SCH (10:44)
[2024-10-04] MEDS: metroNIDAZOLE 500 MG TAB PO SCH (10:44)
[2024-10-04] MEDS: GABAPENTIN 300 MG CAP PO SCH (10:44)
--- NOTE | 2024-10-04 11:03 | P.CNOR ---
History of Present Illness - [facility] Consult date: 10/04/24 Consult reason: joint pain, back pain (Low back pain, left hip pain, left lower extremity pain) History of present illness: Patient is a 69-year-old female who came to the ER with regards to worsening low back, left hip and left lower extremity pain. Patient has been in and out of her hospital for the last month or so. Back in early August, patient was seen at our hospital with significant abdominal issues. She was transferred to [facility] where she underwent a liver biopsy, she subsequently developed an infection after that. Patient returned to our hospital for increasing pain prior to being diagnosed with the abscess, she was then transferred to [facility] where she underwent a drain procedure for the abdominal abscess, this drain remains in place, she was post to follow-up with her oncology surgeon on 10/05/2024. Patient was seen a few days ago at this hospital with regards to th is low back/left lower extremity pain, the pain was controlled with medications, that scans/images that were done revealed no acute fractures or dislocations and she was sent home. Patient states that after a few days the pain returned and has gotten worse, she is unable to weight-bear fully on that left lower extremity. Our orthopedic team was consulted for this reason. Patient was evaluated in the ER today, her was present at bedside. Patient underwent a abdomen/pelvis CT scan. She has a previous thoracic a lumbar CT scan and AP pelvis and left hip x-ray that were done at her previous hospital visit. All images have demonstrated no acute fractures involving the proximal femur and left hip region. Scans also demonstrated no obvious infective processes, this to include excess fluid accumulation or abscess in the abdomen/pelvis/hip. At her last visit she did undergo a thoracic or lumbar CT which demonstrated no acute fractures or dislocations. She has multilevel lumbar spondylosis, she has more significant spondylosis and degenerative disc disease at L5-S1 with a grade 1 spondylolisthesis. We described the pain, she has a very difficult time doing this. She states it more of a sharp pain. It seems to come to start in the low back hip region and radiate down the leg. During the exam she had a very weird area of pain over the anterior araujo. Patient has no right lower extremity symptoms at this time. Patient has no upper extremity symptoms at this time. Patient has no loss of bowel or bladder function. She denies any numbness or tingling to the perineal or genital region. Throughout most of my exam patient was very uncomfortable and complaining of pain in that low back and left lower extremity. At this time the Dilaudid seems to be only thing that is working well for her. Patient does remain on oral antibiotics for her abdominal issue, like stated prior the drain is still in place. Review of Systems Constitutional: Reports as per HPI Past Medical History Past Medical History: Cancer Additional Past Medical History / Comment(s): current chemo treatment neuroendocrine tumors-last chemo dose Sep-next dose due on 10-19-23,current tx w/ gabapentin for shingles pain-rash is healed under rt breast, hx right breast with radiation and chemo in 2001, previous fall with broken rib and pneumothorax requiring chest tube 2016 History of Any Multi-Drug Resistant Organisms: None Reported Past Surgical History: Breast Surgery Additional Past Surgical History / Comment(s): 2012 BENIGN TUMOR REMOVED FROM NECK, 2001 LUMPECTOMY RIGHT BREAST, liver biopsy with cancer cells but unknown if metastasis from breast or lung, liver biopsy ( has drain ) Past Anesthesia/Blood Transfusion Reactions: No Reported Reaction Additional Past Anesthesia/Blood Transfusion Reaction / Comm: no hx blood transfusion Past Psychological History: No Psychological Hx Reported Smoking Status: Former smoker Past Alcohol Use History: None Reported Past Drug Use History: None Reported - Past Family History Mother Family Medical History: Cancer Additional Family Medical History / Comment(s): uterine or cervical patient unsure Medications and Allergies Home Medications Medication Instructions Recorded Confirmed Type Cefdinir [Omnicef] 300 mg PO BID 10/01/24 10/04/24 History Gabapentin 600 mg PO TID 10/01/24 10/04/24 History HYDROmorphone [Dilaudid] 2 mg PO Q6H PRN 3 Days #12 tab 10/01/24 10/04/24 Rx metroNIDAZOLE [Flagyl] 500 mg PO BID 10/01/24 10/04/24 History Allergies Allergy/AdvReac Type Severity Reaction Status Date / Time codeine AdvReac Nausea & Verified 10/04/24 08:39 Vomiting hydrocodone [From [place]] AdvReac Nausea & Verified 10/04/24 08:39 Vomiting morphine AdvReac Nausea & Verified 10/04/24 08:39 Vomiting Physical Examination Gen: AOx3, NAD VSS stable at this time Integument: No open lesions or sores are visualized throughout the thoracic or lumbar area. There is no areas of erythema or soft tissue swelling. No areas of soft tissue swelling or skin changes to the left hip region. Palpation: Patient demonstrates exquisite tenderness with palpation to the paravertebral area and SI joint area on the left-hand side. She also is very tender along the trochanteric bursa on the left lower extremity. She is nontender in the lower leg, this to include knee, foot or ankle ROM: Full range of motion in all major muscle groups of the bilateral lower extremities, there are no focal deficits appreciated. Sensory Exam: Senory exam to light touch is intact C5-T1 Senosry exam to light touch is intact L2-S1 Motor: 5/5 strength appreciated in the bilateral lower extremities with hip flexion, knee extension, knee flexion, plantarflexion, dorsiflexion, EHL, FHL Reflexes: 2/4 in all UE and LE Negative Alex's bilaterally Negative clonus bilaterally Special Test: Logroll maneuver of the bilateral lower extremities reproduces no groin pain Positive straight leg raise left lower extremity, negative straight leg raise right lower extremity Results - Labs Labs: Abnormal Lab Results - Last 24 Hours (Table) 10/03/24 10/03/24 10/04/24 Range/Units 22:35 22:55 07:07 RDW 16.8 H 16.4 H (11.5-15.5) % ESR 86 H (0-30) mm/Hr Sodium 134 L (137-145) mmol/L Carbon Dioxide 32 H (22-30) mmol/L BUN 4 L (7-17) mg/dL Creatinine 0.43 L (0.52-1.04) mg/dL Glucose (74-99) mg/dL Calcium 8.2 L (8.4-10.2) mg/dL AST 53 H (14-36) U/L C-Reactive Protein 1.30 H (0.00-0.80) mg/dL 10/04/24 Range/Units 07:07 RDW (11.5-15.5) % ESR (0-30) mm/Hr Sodium 135 L (137-145) mmol/L Carbon Dioxide (22-30) mmol/L BUN 4 L (7-17) mg/dL Creatinine 0.44 L (0.52-1.04) mg/dL Glucose 109 H (74-99) mg/dL Calcium 8.2 L (8.4-10.2) mg/dL AST (14-36) U/L C-Reactive Protein (0.00-0.80) mg/dL H & H 10/03/24 10/04/24 Range/Units 22:55 07:07 Hgb 13.4 12.3 (11.4-16.0) gm/dL Hct 41.2 39.3 (34.0-46.0) % Result Diagrams: 10/04/24 07:07 10/04/24 07:07 - Diagnostic results Hip x-ray: report reviewed, image reviewed CT Scan - lumbar: report reviewed, image reviewed Assessment and Plan Assessment: Low back pain Left hip pain Left lower extremity radiculopathy Mild left hip osteoarthritis Multilevel lumbar spondylosis, most severe at L5-S1 Grade 1 spondylolisthesis L5-S1 Multiple medical comorbidities Plan: Imaging: Multiple images were reviewed along with reports. This to include a thoracal lumbar CT scan, a abdomen/pelvis CT scan, a AP pelvis and left hip x-rays. Images were inconclusive for acute fractures or dislocations. Multilevel lumbar spondylosis was present, worst at L5-S1 with a grade 1 spondylolisthesis. Mild left hip osteoarthritis present. Plan: I was able to discuss this case, this to include both physical exam findings and imaging studies and my attending's Dr. Redmond and Dr. Reynoso, MRI with contrast of the lumbar spine and left hip were ordered. Taking into consideration patient's current abdominal infection, her immunocompromised state, her current labs this to include an elevated inflammatory markers and severity of pain concern for infective process versus subacute fracture, will await images and reports for further review. Recommend general surgery consult due to her recent/current abdominal issues Pain control, continue with current medications. Could consider use of muscle relaxer DVT prophylaxis per primary medical service Protected weightbearing at this time, recommend use of a walker Other medical specialty recommendations appreciated Will continue to follow patient during hospital stay
[2024-10-04] MEDS ORDERED: diazePAM 5 MG TAB PO PRN (11:08)
--- NOTE | 2024-10-04 15:24 | P.PN ---
Subjective Progress Note Date: 10/04/24 Hospital course: This is a 69-year-old female with history of neuroendocrine cancer on chemotherapy, breast cancer status post lumpectomy, recent liver abscess on antibiotics presenting with left hip pain. Patient is admitted under intermittent service for further workup of the persistent left hip pain. Laboratory evaluation in the ER shows white cell count of 7.9, hemoglobin 13.4, MCV 94.5, 134, potassium 4.7, chloride 98, bicarb 32, BUN 4, creatinine 0.43, AST 53, ALT 14, C-reactive protein 1.3, ESR 86. CT abdomen is unremarkable for joint effusion, abscess, infection, fracture or erosion. Findings are similar to imaging done on 09/09/2024. Subjective: Patient seen and examined at the bedside. Patient continued to have 8 out of 10 left hip pain on the anterolateral area. All Systems reviewed and pertinent positives and negatives noted in HPI, all other symptoms are negative Objective: Vital signs reviewed. General: non toxic, no distress, appears at stated age, normal weight HEENT: NC/AT, intact EOMI, PERRLA Neck: No cervical lymphadenopathy, trachea midline, supple Mouth: no lip lesion, mucus membranes moist Cardiovascular: S1S2 reg, no murmur, positive dorsalis pedis pulse bilateral, no edema Lungs: CTA bilateral, no rhonchi, no rales, no accessory muscle use Abdominal: soft, nontender to palpation, no guarding, Drain in place centrally with no surrounding erythema or discharge noted. Ext: muscle strength 5 out of 5 in all 4 extremities grossly, no gross muscle at rophy, no contractures, Significant tenderness to gentle palpation of the left hip. Neuro: CN II-XI grossly intact, no gross focal neuro deficits Psych: Alert, oriented, appropriate affect Data reviewed today: Labs: WBC 8.4, hemoglobin 12.3, MCV 96.9, platelet count 171, sodium 135, potassium 3.5, bicarbonate 28, BUN 4, creatinine 0.44, glucose 109 Images: No new imaging Assessment and Plan: 69-year-old female with neuroendocrine cancer on chemo, breast cancer, status postlumpectomy, radiation and chemo, recent liver abscess on antibiotics presenting with left hip pain. Patient admitted for management and further workup of persistent left hip pain. #Left lower extremity pain CT imaging showed no left hip effusion, no evidence for abscess within the left lower extremity, no evidence for osseous erosion involving the left hip, and hip appears similar to previous imaging taken August of this year Pain control with Dilaudid 1 mg IV push every 3 hours as needed Fall precautions Received venous Doppler ultrasound 3 days ago of the lower extremities which showed no acute DVT Orthopedics consulted, note reviewed, recs appreciated -MRI of the lumbar spine and left hip ordered -ESR 86 and CRP 1.30 #Liver abscess: Developed after liver biopsy. Drain in place Continue with Flagyl and cefdinir #Transaminitis: AST 53, ALT 14, and T. bili 0.7 Patient currently taking cefdinir at home which could potentially be causing the transaminitis Continue to monitor F: P.o. E: None N: Regular diet DVT ppx: Lovenox 40 SQ daily GI ppx: Protonix 40 mg p.o. daily Code Status: Full code Anticipated discharge place: Pending clinical course Anticipated discharge date: Pending clinical course I have seen and evaluated the patient today. Discussed with the resident and agree with the residents finding and plan as documented in the resident's note. Changes highlighted in blue font. Objective - Vital Signs Vital signs: Vital Signs Temp 98.5 F 10/04/24 08:35 Pulse 96 10/04/24 15:11 Resp 16 10/04/24 15:11 BP 145/99 10/04/24 15:11 Pulse Ox 97 10/04/24 15:11 FiO2 Intake & Output 10/03/24 10/04/24 10/04/24 18:59 06:59 18:59 Weight 71.668 kg - Labs CBC & Chem 7: 10/04/24 07:07 10/04/24 07:07 Labs: Abnormal Lab Results - Last 24 Hours (Table) 10/03/24 10/03/24 10/04/24 Range/Units 22:35 22:55 07:07 RDW 16.8 H 16.4 H (11.5-15.5) % ESR 86 H (0-30) mm/Hr Sodium 134 L (137-145) mmol/L Carbon Dioxide 32 H (22-30) mmol/L BUN 4 L (7-17) mg/dL Creatinine 0.43 L (0.52-1.04) mg/dL Glucose (74-99) mg/dL Calcium 8.2 L (8.4-10.2) mg/dL AST 53 H (14-36) U/L C-Reactive Protein 1.30 H (0.00-0.80) mg/dL 10/04/24 Range/Units 07:07 RDW (11.5-15.5) % ESR (0-30) mm/Hr Sodium 135 L (137-145) mmol/L Carbon Dioxide (22-30) mmol/L BUN 4 L (7-17) mg/dL Creatinine 0.44 L (0.52-1.04) mg/dL Glucose 109 H (74-99) mg/dL Calcium 8.2 L (8.4-10.2) mg/dL AST (14-36) U/L C-Reactive Protein (0.00-0.80) mg/dL
[2024-10-04] MEDS ORDERED: ACETAMINOPHEN TAB 325 MG TAB PO PRN (15:58)
[2024-10-05 08:30] LABS: African American GFR (CKD) >90 (>60 ml/min/1.73 sqM); Anion Gap 3 mmol/L; Blood Urea Nitrogen 5 mg/dL (7-17); Calcium 7.9 mg/dL (8.4-10.2); Carbon Dioxide 29 mmol/L (22-30); Chloride 101 mmol/L (98-107); Glucose 103 mg/dL (74-99); Magnesium 1.7 mg/dL (1.6-2.3); Non-African American GFR(CKD) >90 (>60 ml/min/1.73 sqM); Potassium 3.4 mmol/L (3.5-5.1); Sodium 133 mmol/L (137-145)
[2024-10-05] MEDS: POTASSIUM CHLORIDE ER 20 MEQ TAB.ER PO STA (09:58)
--- NOTE | 2024-10-05 10:57 | P.PN ---
Subjective Progress Note Date: 10/05/24 Principal diagnosis: Left hip pain, left lower extremity pain, low back pain Patient was evaluated today at bedside, she is resting in her hospital bed, is present at bedside. Patient remains unchanged since yesterday, she is requiring Dilaudid every 3 hours. Apparently we have submitted paperwork to [facility] where she had previous stents put in to determine if we can do the MRIs at our facility. Objective - Vital Signs Vital signs: Vital Signs Temp 98.0 F 10/05/24 07:00 Pulse 89 10/05/24 10:23 Resp 16 10/05/24 10:23 BP 127/79 10/05/24 07:00 Pulse Ox 94 L 10/05/24 07:00 FiO2 Intake & Output 10/04/24 10/05/24 10/05/24 18:59 06:59 18:59 Output Total 0 Balance 0 Weight 71.668 kg Output: Drainage 0 Abdomen 0 Other: Voiding Method Toilet Toilet Toilet # Voids 1 - Exam Gen: AOx3, NAD VSS stable at this time Integument: No open lesions or sores are visualized throughout the thoracic or lumbar area. There is no areas of erythema or soft tissue swelling. No areas of soft tissue swelling or skin changes to the left hip region. Palpation: Patient demonstrates exquisite tenderness with palpation to the paravertebral area and SI joint area on the left-hand side. She also is very tender along the trochanteric bursa on the left lower extremity. She is nontender in the lower leg, this to include knee, foot or ankle ROM: Full range of motion in all major muscle groups of the bilateral lower extremities, there are no focal deficits appreciated. Sensory Exam: Senory exam to light touch is intact C5-T1 Senosry exam to light touch is intact L2-S1 Motor: 5/5 strength appreciated in the bilateral lower extremities with hip flexion, knee extension, knee flexion, plantarflexion, dorsiflexion, EHL, FHL Reflexes: 2/4 in all UE and LE Negative Alex's bilaterally Negative clonus bilaterally Special Test: Logroll maneuver of the bilateral lower extremities reproduces no groin pain Positive straight leg raise left lower extremity, negative straight leg raise right lower extremity - Labs CBC & Chem 7: 10/04/24 07:07 10/05/24 07:11 Labs: Abnormal Lab Results - Last 24 Hours (Table) 10/05/24 Range/Units 07:11 Sodium 133 L (137-145) mmol/L Potassium 3.4 L (3.5-5.1) mmol/L BUN 5 L (7-17) mg/dL Creatinine 0.42 L (0.52-1.04) mg/dL Glucose 103 H (74-99) mg/dL Calcium 7.9 L (8.4-10.2) mg/dL Assessment and Plan Assessment: Low back pain Left hip pain Left lower extremity radiculopathy Mild left hip osteoarthritis Multilevel lumbar spondylosis, most severe at L5-S1 Grade 1 spondylolisthesis L5-S1 Multiple medical comorbidities Plan: Plan: Discussed with internal medicine the possibility of transferring patient to either [facility] or [facility] for further management of her current condition. Unknown timeframe of when we will receive information regarding her stents and the ability to do MRIs at our facility. Recommend general surgery consult due to her recent/current abdominal issues Pain control, continue with current medications. Could consider use of muscle relaxer DVT prophylaxis per primary medical service Protected weightbearing at this time, recommend use of a walker Other medical specialty recommendations appreciated Will continue to follow patient during hospital stay, please contact our service with any further questions at this time.
--- NOTE | 2024-10-05 12:54 | P.PN ---
Subjective Progress Note Date: 10/05/24 Hospital course: This is a 69-year-old female with history of neuroendocrine cancer on chemotherapy, breast cancer status post lumpectomy, recent liver abscess on antibiotics presenting with left hip pain. Patient is admitted under intermittent service for further workup of the persistent left hip pain. Laboratory evaluation in the ER shows white cell count of 7.9, hemoglobin 13.4, MCV 94.5, 134, potassium 4.7, chloride 98, bicarb 32, BUN 4, creatinine 0.43, AST 53, ALT 14, C-reactive protein 1.3, ESR 86. CT abdomen is unremarkable for joint effusion, abscess, infection, fracture or erosion. Findings are similar to imaging done on 09/09/2024. Orthopedics consulted. MRI of the lumbar spine and left hip is pending. Subjective: Patient seen and examined at the bedside. Patient continued to have 3 out of 10 left hip pain on the anterolateral area. All Systems reviewed and pertinent positives and negatives noted in HPI, all other symptoms are negative Objective: Vital signs reviewed. General: non toxic, no distress, appears at stated age, normal weight HEENT: NC/AT, intact EOMI, PERRLA Neck: No cervical lymphadenopathy, trachea midline, supple Mouth: no lip lesion, mucus membranes moist Cardiovascular: S1S2 reg, no murmur, positive dorsalis pedis pulse bilateral, no edema Lungs: CTA bilateral, no rhonchi, no rales, no accessory muscle use Abdominal: soft, nontender to palpation, no guarding, Drain in place centrally with no surrounding erythema or discharge noted. Ext: muscle strength 5 out of 5 in all 4 extremities grossly, no gross muscle atrophy, no contractures, Significant tenderness to gentle palpation of the left hip. Neuro: CN II-XI grossly intact, no gross focal neuro deficits Psych: Alert, oriented, appropriate affect Data reviewed today: Labs: Sodium 133, potassium 3.4, chloride 101, bicarb 29, BUN 5, creatinine 0.42, glucose 103, calcium 7.9, magnesium 1.7 Images: No new imaging Assessment and Plan: 69-year-old female with neuroendocrine cancer on chemo, breast cancer, status postlumpectomy, radiation and chemo, recent liver abscess on antibiotics presenting with left hip pain. Patient admitted for management and further workup of persistent left hip pain. #Left lower extremity pain CT imaging showed no left hip effusion, no evidence for abscess within the left lower extremity, no evidence for osseous erosion involving the left hip, and hip appears similar to previous imaging taken August of this year Pain control with Dilaudid 1 mg IV push every 3 hours as needed Fall precautions Received venous Doppler ultrasound 3 days ago of the lower extremities which showed no acute DVT Orthopedics consulted, note reviewed, recs appreciated -MRI of the lumbar spine and left hip ordered -ESR 86 and CRP 1.30 #Liver abscess: Developed after liver biopsy. Drain in place Continue with Flagyl and cefdinir #Transaminitis: AST 53, ALT 14, and T. bili 0.7 Patient currently taking cefdinir at home which could potentially be causing the transaminitis Continue to monitor #Hypokalemia Potassium 3.4 Order KCl 40 mEq p.o. Monitor BMP #Hypovolemic hyponatremia Encourage oral intake Monitor BMP F: P.o. E: None N: Regular diet DVT ppx: Lovenox 40 SQ daily GI ppx: Protonix 40 mg p.o. daily Code Status: Full code Anticipated discharge place: Pending clinical course Anticipated discharge date: Pending clinical course I saw and evaluated the patient during the agustin and critical portions of this encounter, and discussed the case in detail with the resident author of this note, I agree with the Assessment and Plan, and my changes, if any, are highlighted in blue. Objective - Vital Signs Vital signs: Vital Signs Temp 98.0 F 10/05/24 07:00 Pulse 89 10/05/24 11:52 Resp 16 10/05/24 11:52 BP 127/79 10/05/24 07:00 Pulse Ox 94 L 10/05/24 07:00 FiO2 Intake & Output 10/04/24 10/05/24 10/05/24 18:59 06:59 18:59 Output Total 0 Balance 0 Weight 71.668 kg Output: Drainage 0 Abdomen 0 Other: Voiding Method Toilet Toilet Toilet # Voids 1 - Labs CBC & Chem 7: 10/04/24 07:07 10/05/24 07:11 Labs: Abnormal Lab Results - Last 24 Hours (Table) 10/05/24 Range/Units 07:11 Sodium 133 L (137-145) mmol/L Potassium 3.4 L (3.5-5.1) mmol/L BUN 5 L (7-17) mg/dL Creatinine 0.42 L (0.52-1.04) mg/dL Glucose 103 H (74-99) mg/dL Calcium 7.9 L (8.4-10.2) mg/dL
--- NOTE | 2024-10-05 16:07 | MR ---
EXAMINATION TYPE: MR lumbar spine wo/w con DATE OF EXAM: 10/05/2024 4:01 PM COMPARISON: None. CLINICAL INDICATION: Female, 69 years old with history of severe back pain, left lower extremity pain ; PHH, Severe back pain, left lower extremity pain TECHNIQUE: Multi planar, multi sequence imaging was performed utilizing: T1-weighted, T2-weighted, a nd turbo inversion recovery imaging of the lumbar spine. IV Contrast: 7 mL Gadobutrol (None, if empty) FINDINGS: Alignment: The lumbar vertebral bodies have preserved heights and alignment. Cord: The conus medullaris and the distal spinal cord appear unremarkable with regards to their signa l intensity and morphology. No abnormal postcontrast enhancement. Bones/Discs: Mild degeneration changes throughout the spine with osteophyte formation and facet joint arthropathy. Intervertebral disc signal is maintained. No abnormal inversion recovery signal to sugg est bony edema. No abnormal postcontrast enhancement. T12-L1: No evidence of significant spinal canal stenosis or neural foraminal stenosis. L1-L2: No evidence of significant spinal canal stenosis or neural foraminal stenosis. L2-L3: No evidence of significant spinal canal stenosis or neural foraminal stenosis. L3-L4: No evidence of significant spinal canal stenosis or neural foraminal stenosis. L4-L5: No evidence of significant spinal canal stenosis or neural foraminal stenosis. L5-S1: The disc has a rounded posterior morphology without significant spinal canal stenosis. Facet j oint arthropathy with mild to moderate bilateral neural foraminal stenosis. Extraforaminal osteophyte displacing the exiting left nerve series series 601 image 2 No significant spinal canal or neural foraminal stenosis in the remainder of the visualized levels. Other findings: Masses in the liver present. Retroperitoneal lymphadenopathy as seen on priors. IMPRESSION: 1. No abnormal postcontrast enhancement to suggest metastatic disease to the spine. As seen within t he liver remains present lymphadenopathy in the retroperitoneum. 2. No evidence of disc herniation or significant spinal canal stenosis. 3. [id number] disc degeneration with associated osteoarthritic changes. 4. L5-S1 left extraforaminal osteophyte displacing the exiting nerve. [facility], Workstation: [id number], 10/05/2024 4:05 PM
[2024-10-06 09:50] LABS: Calcium 8.1 mg/dL (8.7-10.3); Carbon Dioxide 26.5 mmol/L (21.6-31.8); Chloride 100 mmol/L (96-109); Glucose 100 mg/dL (70-110); Magnesium 1.7 mg/dL (1.5-2.4); Potassium 3.8 mmol/L (3.5-5.5); Sodium 136 mmol/L (135-145)
--- NOTE | 2024-10-06 13:55 | P.PN ---
Subjective Progress Note Date: 10/06/24 Hospital course: This is a 69-year-old female with history of neuroendocrine cancer on chemotherapy, breast cancer status post lumpectomy, recent liver abscess on antibiotics presenting with left hip pain. Patient is admitted under intermittent service for further workup of the persistent left hip pain. Laboratory evaluation in the ER shows white cell count of 7.9, hemoglobin 13.4, MCV 94.5, 134, potassium 4.7, chloride 98, bicarb 32, BUN 4, creatinine 0.43, AST 53, ALT 14, C-reactive protein 1.3, ESR 86. CT abdomen is unremarkable for joint effusion, abscess, infection, fracture or erosion. Findings are similar to imaging done on 09/09/2024. Orthopedics consulted. MRI of the lumbar spine shows L5-S1 left extraforaminal osteophyte displacing the exiting nerve. Subjective: Patient seen and examined at the bedside. Patient continues to have left hip pain. All Systems reviewed and pertinent positives and negatives noted in HPI, all other symptoms are negative Objective: Vital signs reviewed. General: non toxic, no distress, appears at stated age, normal weight HEENT: NC/AT, intact EOMI, PERRLA Neck: No cervical lymphadenopathy, trachea midline, supple Mouth: no lip lesion, mucus membranes moist Cardiovascular: S1S2 reg, no murmur, positive dorsalis pedis pulse bilateral, no edema Lungs: CTA bilateral, no rhonchi, no rales, no accessory muscle use Abdominal: soft, nontender to palpation, no guarding, Drain in place centrally with no surrounding erythema or discharge noted. Ext: muscle strength 5 out of 5 in all 4 extremities grossly, no gross muscle atrophy, no contractures, Significant tenderness to gentle palpation of the left hip. Neuro: CN II-XI grossly intact, no gross focal neuro deficits Psych: Alert, oriented, appropriate affect Data reviewed today: Labs: Sodium 136, potassium 3.8, BUN 4.0, creatinine 0.4, calcium 8.1, magnesium 1.7 Images: Lumbar spine MRI shows L5-S1 left extraforaminal osteophyte displacing the exiting nerve Assessment and Plan: 69-year-old female with neuroendocrine cancer on chemo, breast cancer, status postlumpectomy, radiation and chemo, recent liver abscess on antibiotics presenting with left hip pain. Patient admitted for management and further workup of persistent left hip pain. #Left lower extremity pain likely secondary to L5-S1 nerve impingement Lumbar spine MRI shows L5-S1 left extraforaminal osteophyte displacing the exiting nerve Pain control with Dilaudid 1 mg IV push every 3 hours as needed Add oral Dilaudid 2 mg every 3 hours as needed Fall precautions Orthopedics consulted, note reviewed, recs appreciated Left hip MRI still pending ESR 86 and CRP 1.30 Consider physical therapy and rehabilitation #Liver abscess: Developed after liver biopsy. Drain in place Continue with Flagyl and cefdinir #Transaminitis AST 53, ALT 14, and T. bili 0.7 Patient currently taking cefdinir at home which could potentially be causing the transaminitis Repeat CMP #Hypokalemia, resolved Potassium 3.8 Continue to monitor #Hypovolemic hyponatremia, resolved Sodium level 136 Monitor to BMP F: P.o. E: None N: Regular diet DVT ppx: Lovenox 40 SQ daily GI ppx: Protonix 40 mg p.o. daily Code Status: Full code Anticipated discharge place: Pending clinical course Anticipated discharge date: Pending clinical course I saw and evaluated the patient during the agustin and critical portions of this encounter, and discussed the case in detail with the resident author of this note, I agree with the Assessment and Plan, and my changes, if any, are highlighted in blue. Objective - Vital Signs Vital signs: Vital Signs Temp 98.0 F 10/06/24 07:00 Pulse 86 10/06/24 07:00 Resp 16 10/06/24 07:00 BP 128/69 10/06/24 07:00 Pulse Ox 93 L 10/06/24 07:00 FiO2 Intake & Output 10/05/24 10/06/24 10/06/24 18:59 06:59 18:59 Intake Total 236 360 118 Output Total 0 0 Balance 236 360 118 Intake: Oral 236 360 118 Output: Drainage 0 0 Abdomen 0 0 Other: Voiding Method Toilet Toilet Toilet # Voids 2 2 - Labs CBC & Chem 7: 10/04/24 07:07 10/06/24 05:04 Labs: Abnormal Lab Results - Last 24 Hours (Table) 10/06/24 Range/Units 05:04 BUN 4.0 L (9.0-27.0) mg/dL Creatinine 0.4 L (0.6-1.5) mg/dL BUN/Creatinine Ratio 10.00 L (12.00-20.00) Ratio Calcium 8.1 L (8.7-10.3) mg/dL
--- NOTE | 2024-10-06 13:59 | P.PN ---
Subjective Progress Note Date: 10/06/24 Principal diagnosis: Left hip pain, left lower extremity pain, low back pain Patient was evaluated today at bedside, she is resting in her hospital bed, is present at bedside. Patient remains at baseline since initial visit. She did have the MRI of her low back yesterday which demonstrated a left lateral disc herniation in the L5-S1 region. No evident signs of space- occupying lesion involving the lumbar spine. Patient is having the left hip MRI later today. Internal medicine has continue to follow patient and adjusting medications for pain. Objective - Vital Signs Vital signs: Vital Signs Temp 98.0 F 10/06/24 07:00 Pulse 86 10/06/24 07:00 Resp 16 10/06/24 07:00 BP 128/69 10/06/24 07:00 Pulse Ox 93 L 10/06/24 07:00 FiO2 Intake & Output 10/05/24 10/06/24 10/06/24 18:59 06:59 18:59 Intake Total 236 360 118 Output Total 0 0 Balance 236 360 118 Intake: Oral 236 360 118 Output: Drainage 0 0 Abdomen 0 0 Other: Voiding Method Toilet Toilet Toilet # Voids 2 2 - Exam Gen: AOx3, NAD VSS stable at this time Integument: No open lesions or sores are visualized throughout the thoracic or lumbar area. There is no areas of erythema or soft tissue swelling. No areas of soft tissue swelling or skin changes to the left hip region. Palpation: Patient demonstrates exquisite tenderness with palpation to the paravertebral area and SI joint area on the left-hand side. She also is very tender along the trochanteric bursa on the left lower extremity. She is nontender in the lower leg, this to include knee, foot or ankle ROM: Full range of motion in all major muscle groups of the bilateral lower extremities, there are no focal deficits appreciated. Sensory Exam: Senory exam to light touch is intact C5-T1 Senosry exam to light touch is intact L2-S1 Motor: 5/5 strength appreciated in the bilateral lower extremities with hip flexion, knee extension, knee flexion, plantarflexion, dorsiflexion, EHL, FHL Reflexes: 2/4 in all UE and LE Negative Alex's bilaterally Negative clonus bilaterally Special Test: Logroll maneuver of the bilateral lower extremities reproduces no groin pain Positive straight leg raise left lower extremity, negative straight leg raise r ight lower extremity - Labs CBC & Chem 7: 10/04/24 07:07 10/06/24 05:04 Labs: Abnormal Lab Results - Last 24 Hours (Table) 10/06/24 Range/Units 05:04 BUN 4.0 L (9.0-27.0) mg/dL Creatinine 0.4 L (0.6-1.5) mg/dL BUN/Creatinine Ratio 10.00 L (12.00-20.00) Ratio Calcium 8.1 L (8.7-10.3) mg/dL Assessment and Plan Assessment: Low back pain Left hip pain Left lower extremity radiculopathy L5-S1 HNP Mild left hip osteoarthritis Multilevel lumbar spondylosis, most severe at L5-S1 Grade 1 spondylolisthesis L5-S1 Multiple medical comorbidities Plan: Plan: I was able to review the MRI report and images with my attending Dr. Reynoso. No emergent orthopedic spine surgery recommended. Continue with conservative measures at this time, could consider pain management consult in the inpatient versus outpatient setting for evaluation Await MRI of the left hip, further recommendations to follow Pain control, continue with current medications. Could consider use of muscle relaxer DVT prophylaxis per primary medical service Protected weightbearing at this time, recommend use of a walker Other medical specialty recommendations appreciated Will continue to follow patient during hospital stay, please contact our service with any further questions at this time. Time with Patient: Less than 30
--- NOTE | 2024-10-06 14:33 | MR ---
EXAMINATION TYPE: MR hip LT wo/w con DATE OF EXAM: 10/06/2024 2:15 PM CLINICAL INDICATION: Female, 69 years old with history of severe hip pain; PHH, Severe left hip pain COMPARISON: 10/03/2024 TECHNIQUE: Multiplanar multi-sequential magnetic resonance imaging of the right hip without contrast. IV Contrast: 7 mL Gadavist FINDINGS: Joint spaces and alignment: Normal Joint/bursal fluid: Physiologic fluid in the joints bilaterally. Articular cartilage: Mild thinning of the cartilage bilaterally. Acetabular labrum: Degenerated labrum without displaced labral tear on this non-arthrogram technique. Muscles/Tendons: Intact The tendons of the gluteal, hamstring, iliopsoas, and adductors are normal in within normal limits without evidence for edema and are intact. No abnormal postcontrast enhancement . Abductor tendon insertions: Intact Intrapelvic structures: Normal Neurovascular structures: Normal Marrow: The right femoral head demonstrates normal morphology and signal characteristics. There is n o evidence of fracture or acute process. The sacroiliac joints and pubic symphysis are noted to be un remarkable. Soft tissues: Normal Other: Right adnexal mass measuring 47 x 35 mm as seen on prior imaging. There is a uterine fibroid n oted measuring up to 32 mm. IMPRESSION: 1. No suspicious bony lesions or evidence of fracture. No bony edema identified. No obvious cause fo r the patient's pain. No abnormal postcontrast enhancement to correlate with etiology of patient's se viji pain. 2. Mild bilateral hip osteoarthrosis without evidence for displaced labral tear. 3. Right adnexal mass, as seen on prior imaging. There is enhancement of this lesion. [facility], Workstation: [id number], 10/06/2024 2:31 PM
[2024-10-06] MEDS: HYDROmorphone 2 MG TAB PO PRN (16:55)
--- NOTE | 2024-10-07 10:58 | P.PN ---
Subjective Progress Note Date: 10/07/24 Hospital course: This is a 69-year-old female with history of neuroendocrine cancer on chemotherapy, breast cancer status post lumpectomy, recent liver abscess on antibiotics presenting with left hip pain. Patient is admitted under intermittent service for further workup of the persistent left hip pain. Laboratory evaluation in the ER shows white cell count of 7.9, hemoglobin 13.4, MCV 94.5, 134, potassium 4.7, chloride 98, bicarb 32, BUN 4, creatinine 0.43, AST 53, ALT 14, C-reactive protein 1.3, ESR 86. CT abdomen is unremarkable for joint effusion, abscess, infection, fracture or erosion. Findings are similar to imaging done on 09/09/2024. Orthopedics consulted. MRI of the lumbar spine shows L5-S1 left extraforaminal osteophyte displacing the exiting nerve. Subjective: Patient seen and examined at the bedside. Pt reports pain is much better controlled with regimen of dilaudid Objective: Vital signs reviewed. General: non toxic, no distress, appears at stated age, normal weight HEENT: NC/AT, intact EOMI, PERRLA Neck: No cervical lymphadenopathy, trachea midline, supple Mouth: no lip lesion, mucus membranes moist Cardiovascular: S1S2 reg, no murmur, positive dorsalis pedis pulse bilateral, no edema Lungs: CTA bilateral, no rhonchi, no rales, no accessory muscle use Abdominal: soft, nontender to palpation, no guarding, Drain in place centrally with no surrounding erythema or discharge noted. Ext: muscle strength 5 out of 5 in all 4 extremities grossly, no gross muscle atrophy, no contractures, Significant tenderness to gentle palpation of the left hip. Neuro: CN II-XI grossly intact, no gross focal neuro deficits Psych: Alert, oriented, appropriate affect Data reviewed today: Labs: Sodium 136, potassium 3.8, BUN 4.0, creatinine 0.4, calcium 8.1, magnesium 1.7 Images: Lumbar spine MRI shows L5-S1 left extraforaminal osteophyte displacing the exiting nerve Assessment and Plan: 69-year-old female with neuroendocrine cancer on chemo, breast cancer, status postlumpectomy, radiation and chemo, recent liver abscess on antibiotics presenting with left hip pain. Patient admitted for management and further workup of persistent left hip pain. #Left lower extremity pain likely secondary to L5-S1 nerve impingement Lumbar spine MRI shows L5-S1 left extraforaminal osteophyte displacing the exiting nerve Pain control with Dilaudid 1 mg IV push every 3 hours as needed Add oral Dilaudid 2 mg every 3 hours as needed Fall precautions Orthopedics consulted, note reviewed, recs appreciated Left hip MRI reviewed, and negative for fx, avascular necrosis, etc ESR 86 and CRP 1.30 Consider physical therapy and rehabilitation #Liver abscess: Developed after liver biopsy. Drain in place Continue with Flagyl and cefdinir #Transaminitis AST 53, ALT 14, and T. bili 0.7 Patient currently taking cefdinir at home which could potentially be causing the transaminitis Repeat CMP #Hypokalemia, resolved Potassium 3.8 Continue to monitor #Hypovolemic hyponatremia, resolved Sodium level 136 Monitor to BMP F: P.o. E: None N: Regular diet DVT ppx: Lovenox 40 SQ daily GI ppx: Protonix 40 mg p.o. daily Code Status: Full code Anticipated discharge place: Pending clinical course Anticipated discharge date: Pending clinical course Objective - Vital Signs Vital signs: Vital Signs Temp 98.1 F 10/07/24 07:05 Pulse 89 10/07/24 07:05 Resp 16 10/07/24 07:05 BP 147/86 10/07/24 07:05 Pulse Ox 94 L 10/07/24 07:05 FiO2 Intake & Output 10/06/24 10/07/24 10/07/24 18:59 06:59 18:59 Intake Total 354 Balance 354 Intake: Oral 354 Other: Voiding Method Toilet Toilet # Voids 2 2 # Bowel Movements 2 - Labs CBC & Chem 7: 10/04/24 07:07 10/06/24 05:04
--- NOTE | 2024-10-07 12:28 | P.PN ---
Subjective Progress Note Date: 10/07/24 Principal diagnosis: Left hip pain, left lower extremity pain, low back pain Patient was evaluated today at bedside, she is resting in her hospital bed, is present at bedside. Patient seems to be more comfortable today on exam. She feels that the [employer] exchange administrator to the oral medication has helped significantly. She has no bowel or bladder incontinence at this time. She continues to get vague discomfort in that left lower extremity. Objective - Vital Signs Vital signs: Vital Signs Temp 98.1 F 10/07/24 07:05 Pulse 89 10/07/24 07:05 Resp 16 10/07/24 07:05 BP 147/86 10/07/24 07:05 Pulse Ox 94 L 10/07/24 07:05 FiO2 Intake & Output 10/06/24 10/07/24 10/07/24 18:59 06:59 18:59 Intake Total 354 118 Balance 354 118 Intake: Oral 354 118 Other: Voiding Method Toilet Toilet # Voids 2 2 # Bowel Movements 2 - Exam Gen: AOx3, NAD VSS stable at this time Integument: No open lesions or sores are visualized throughout the thoracic or lumbar area. There is no areas of erythema or soft tissue swelling. No areas of soft tissue swelling or skin changes to the left hip region. Palpation: Patient demonstrates exquisite tenderness with palpation to the paravertebral area and SI joint area on the left-hand side. She also is very tender along the trochanteric bursa on the left lower extremity. She is nontender in the lower leg, this to include knee, foot or ankle ROM: Full range of motion in all major muscle groups of the bilateral lower extremities, there are no focal deficits appreciated. Sensory Exam: Senory exam to light touch is intact C5-T1 Senosry exam to light touch is intact L2-S1 Motor: 5/5 strength appreciated in the bilateral lower extremities with hip flexion, knee extension, knee flexion, plantarflexion, dorsiflexion, EHL, FHL Reflexes: 2/4 in all UE and LE Negative Alex's bilaterally Negative clonus bilaterally Special Test: Logroll maneuver of the bilateral lower extremities reproduces no groin pain Positive straight leg raise left lower extremity, negative straight leg raise right lower extremity - Labs CBC & Chem 7: 10/04/24 07:07 10/06/24 05:04 Assessment and Plan Assessment: Low back pain Left hip pain Left lower extremity radiculopathy L5-S1 HNP Mild left hip osteoarthritis Multilevel lumbar spondylosis, most severe at L5-S1 Grade 1 spondylolisthesis L5-S1 Multiple medical comorbidities Plan: Plan: MRI was reviewed along with reports of the left hip. No soft tissue masses, osseous abnormalities or evidence signs of infection are present. Pain control, patient's pain seems better today, she was converted over to oral pain medication DVT prophylaxis per primary medical service Weight-bear as tolerated with walker Other medical specialty recommendations appreciated Orthopedically patient remained stable at this time. I advised follow-up with Dr. Steele's and in the outpatient setting in the next few weeks to discuss her MRI of her lumbar spine in further detail and consider further treatment. We may also consider having patient follow-up with pain management. Please contact our service with any further questions regarding this patient Time with Patient: Less than 30
[2024-10-08 07:46] VITALS: RESP 16
[2024-10-08 10:16] LABS: Basophils # (A) 0.02 X 10*3/uL (0.00-0.10); Basophils % (A) 0.3 %; Eosinophils # (A) 0.32 X 10*3/uL (0.04-0.35); Eosinophils % (A) 5.6 %; HGB 12.2 g/dL (12.0-15.0); Lymphocytes # (A) 1.63 X 10*3/uL (0.90-5.00); Lymphocytes % (A) 28.3 %; MCH 30.1 pg (27.0-32.0); MCHC 31.3 g/dL (32.0-37.0); MCV 96.3 FL (80.0-97.0); Mean Platelet Volume 8.9 FL (9.5-12.2); Monocytes # (A) 0.93 X 10*3/uL (0.20-1.00); Monocytes % (A) 16.2 %; NRBC Per 100 WBC 0 X 10*3/uL (0.00-0.01); Neutrophils # (A) 2.83 X 10*3/uL (1.80-7.70); Neutrophils % (A) 49.3 %; Platelet Count 204 X 10*3/uL (140-440); RBC 4.05 X 10*6/uL (4.10-5.20); RDW 16.1 % (11.5-14.5); WBC 5.75 X 10*3/uL (4.50-10.00)
[2024-10-08 10:39] LABS: BUN/Creat Ratio <7.00 Ratio (12.00-20.00); Blood Urea Nitrogen <3.5 mg/dL (9.0-27.0); Calcium 8.2 mg/dL (8.7-10.3); Carbon Dioxide 25.5 mmol/L (21.6-31.8); Chloride 101 mmol/L (96-109); Glucose 100 mg/dL (70-110); Magnesium 1.7 mg/dL (1.5-2.4); Potassium 3.8 mmol/L (3.5-5.5); Sodium 138 mmol/L (135-145)
--- NOTE | 2024-10-08 13:32 | P.DS ---
Providers Date of admission: 10/05/24 14:47 Attending physician: Adela Rajan MD Consults: 10/03/24 22:59 Consult Physician Urgent Consulting Provider: Chaz Redmond Consult Reason/Comments: intractable left hip pain Do you want consulting provider notified?: Yes Primary care physician: Stated None Jayce Albrecht Hospital Course: 69-year-old female with neuroendocrine cancer on chemo, breast cancer, status postlumpectomy, radiation and chemo, recent liver abscess on antibiotics presenting with left hip pain. Of note patient was recently admitted for similar plants 09/29 where she received imaging of the spine and hips which did not show acute fracture. Her pain at that time was managed with IV Dilaudid which eventually led to resolution of her pain. Reports that since she is left the hospital she has continued to have left hip pain even while taking oral pain medication. Reports she took the pain medication around 8 AM on 09/30 and her pain was controlled, but when she took the second dose around 2 PM she noticed the pain remained and it became too much for her to bear. She also has drain in the lower abdominal quadrant due to a liver abscess that developed after liver biopsy. Denies headache, chest pain, shortness of breath, palpitations, abdominal pain, nausea, vomiting, diarrhea, constipation, lower extremity swelling. Admits to left hip pain. CT abdomen/pelvis done in the emergency room showed no appreciable left hip joint effusion. No evidence for abscess within the left lower extremity. No evidence for osseous erosion involving the left hip. Hips appear relatively symmetric and similar to imaging done on 09/09/2024. No evidence for septic joint of the left hip. Sodium 134, AST 53, ALT 14, and T. bili 0.7. Evaluation of left lower extremity pain led to pr oviding pain control, Cefdinir and flagyl for prophylaxis, and Ortho consulted. Hip and spine MRI ordered was negative for fracture, metastasis, or disc herniation with mild bilateral hip osteoarthritis. Patient had no abdominal symptoms despite elevated transaminases. Pain controled with Dilaudid throughout hospital stay. Patient sent home with Dilaudid 2mg PO for 3 days, Cefdinir, and Flagyl. Advised to follow up with the resident clinic and Orthopedics on outpatient basis. Physical examination: General: non toxic, no distress, appears at stated age Head: atraumatic, normocephalic, symmetric Mouth: no lip lesion, mucus membranes moist Cardiovascular: S1S2 reg, no murmur Lungs: CTA bilateral, no rhonchi, no rales, no accessory muscle use Abdominal: soft, nondistended, nontender to palpation, no guarding, has drain with port clipped and bandaged over, dressing dry and clean, surrounding skin has no erythema Ext: no gross muscle atrophy, no contractures, positive dorsalis pedis pulse bilateral, no extremity edema Neuro: no gross focal neuro deficits Psych: Alert and oriented x3, appropriate affect and mood I saw and evaluated the patient during the agustin and critical portions of this encounter, and discussed the case in detail with the resident author of this note, I agree with the Assessment and Plan, and my changes, if any, are highlighted in blue. Assessment: #Left lower extremity pain likely secondary to L5-S1 nerve impingement, controlled #Liver abscess: Developed after liver biopsy, stable #Transaminitis, stable #Hypokalemia, resolved #Hypovolemic hyponatremia, resolved Patient Condition at Discharge: Stable Plan - Discharge Summary Discharge Rx Participant: Yes New Discharge Prescriptions: New HYDROmorphone [Dilaudid] 2 mg PO Q3H PRN 3 Days #24 tab PRN Reason: Pain Continue metroNIDAZOLE [Flagyl] 500 mg PO BID Cefdinir [Omnicef] 300 mg PO BID Gabapentin 600 mg PO TID Discontinued HYDROmorphone [Dilaudid] 2 mg PO Q6H PRN 3 Days #12 tab PRN Reason: Breakthrough Pain Discharge Medication List Cefdinir [Omnicef] 300 mg PO BID 10/01/24 [History] Gabapentin 600 mg PO TID 10/01/24 [History] metroNIDAZOLE [Flagyl] 500 mg PO BID 10/01/24 [History] HYDROmorphone [Dilaudid] 2 mg PO Q3H PRN 3 Days #24 tab 10/08/24 [Rx] Follow up Appointment(s)/Referral(s): Herbie Albrecht DO [RESIDENT] - 10/10/24 10:00 am ([phone]) [facility] [NON-STAFF] - 1 Week Timoteo Reynoso DO [Doctor of Osteopathic Medicine] - 2 Weeks Patient Instructions/Handouts: Hip Pain (GEN) Discharge Disposition: HOME SELF-CARE
[2024-10-08 15:01] VITALS: BP 119/76; PULSE 89; TEMP 98.6
== END 2024-10-08 16:28 | disposition home health service (06) | DRG 551 ==
LOC: EC 18:06 → 6NMEDSUR 23:01 → OBSVTOIN 10-05 14:47
PROVIDERS: ADMIT Internal Medicine; ATTEND Internal Medicine
DX: M47.27 Other spondylosis with radiculopathy, lumbosacral region (principal); K75.0 Abscess of liver; E87.1 Hypo-osmolality and hyponatremia; C7A.8 Other malignant neuroendocrine tumors; M47.26 Other spondylosis with radiculopathy, lumbar region; M51.17 Intervertebral disc disorders with radiculopathy, lumbosacral region; M43.17 Spondylolisthesis, lumbosacral region; M25.78 Osteophyte, vertebrae; M16.12 Unilateral primary osteoarthritis, left hip; E87.6 Hypokalemia; C50.911 Malignant neoplasm of unspecified site of right female breast; E86.1 Hypovolemia; R74.01 Elevation of levels of liver transaminase levels; Z92.21 Personal history of antineoplastic chemotherapy; Z85.3 Personal history of malignant neoplasm of breast; Z88.5 Allergy status to narcotic agent; Z87.891 Personal history of nicotine dependence
CPT/HCPCS: 36415; 72158; 74177; 80048; 80053; 83605; 83735; 85025; 85652; 86140; 96372; 96374; 96376; 99285

== ENCOUNTER 2024-10-31 19:20 | Observation (INO) | payer MEDICARE, OTHER ==
[2024-10-31] MEDS: NITROGLYCERIN SL TABS 0.4 MG TAB SUBLINGUAL STA (20:14)
[2024-10-31] MEDS: SODIUM CHLORIDE 0.9% 1,000 ML IV STA (20:14)
[2024-10-31] MEDS: ASPIRIN 81 MG PO STA (20:14)
--- NOTE | 2024-10-31 20:17 | XR ---
EXAMINATION TYPE: XR chest 2V DATE OF EXAM: 10/31/2024 8:11 PM COMPARISON: 04/20/2015 CLINICAL INDICATION: Female, 69 years old with history of Chest Pain, TECHNIQUE: XR chest 2V view(s) obtained. FINDINGS: The heart size is normal. The pulmonary vasculature is normal. The lungs are clear. IMPRESSION: 1. No acute pulmonary process. [facility], , 10/31/2024 8:15 PM
[2024-10-31 20:33] LABS: Basophils % (A) 0 %; Eosinophils # (A) 0.3 k/uL (0-0.7); Eosinophils % (A) 5 %; HCT 45.4 % (34.0-46.0); HGB 14.6 gm/dL (11.4-16.0); Lymphocytes # (A) 1.8 k/uL (1.0-4.8); Lymphocytes % (A) 25 %; MCH 30.7 pg (25.0-35.0); MCHC 32.1 g/dL (31.0-37.0); MCV 95.6 fL (80.0-100.0); Mean Platelet Volume 6.8; Monocytes # (A) 0.5 k/uL (0-1.0); Monocytes % (A) 7 %; Neutrophils # (A) 4.2 k/uL (1.3-7.7); Neutrophils % (A) 60 %; Platelet Count 179 k/uL (150-450); RBC 4.75 m/uL (3.80-5.40); RDW 15.3 % (11.5-15.5); WBC 6.9 k/uL (3.8-10.6)
[2024-10-31 20:42] LABS: ALT 12 U/L (4-34); AST 54 U/L (14-36); African American GFR (CKD) >90 (>60 ml/min/1.73 sqM); Albumin 4.1 g/dL (3.5-5.0); Alkaline Phosphatase 57 U/L (38-126); Anion Gap 5 mmol/L; Blood Urea Nitrogen 8 mg/dL (7-17); Calcium 8.8 mg/dL (8.4-10.2); Carbon Dioxide 26 mmol/L (22-30); Chloride 105 mmol/L (98-107); Glucose 101 mg/dL (74-99); Magnesium 1.9 mg/dL (1.6-2.3); Non-African American GFR(CKD) >90 (>60 ml/min/1.73 sqM); Sodium 136 mmol/L (137-145); Total Bilirubin 0.9 mg/dL (0.2-1.3); Total Protein 7.8 g/dL (6.3-8.2)
[2024-10-31 20:47] LABS: Potassium 4.1 mmol/L (3.5-5.1)
[2024-10-31 20:48] LABS: Partial Thromboplastin Time 22.5 sec (22.0-30.0); Prothrombin Time 11.3 sec (10.0-12.5)
[2024-10-31 20:51] LABS: NT-Pro-B-Type Natriuretic Pept 514 pg/mL
[2024-10-31] MEDS: ONDANSETRON 4 MG/2 ML VIAL IVP STA (21:23)
[2024-10-31] MEDS: MAG HYDROX/AL HYDROX/SIMETH 30 ML, HYOSCYAMINE ELIXIR 10 ML, LIDOCAINE VISCOUS 2% 10 ML PO STA (21:23)
--- NOTE | 2024-10-31 21:33 | CT ---
EXAMINATION TYPE: CT chest angio for PE DATE OF EXAM: 10/31/2024 9:17 PM COMPARISON: CT chest abdomen pelvis 08/13/2024 CLINICAL INDICATION: Female, 69 years old with history of eval for PE, Patient reports chest pain maria c t radiates to her right shoulder and back. Started approx 1500 today. +nausea. +SOB. History of carci noid tumors to the liver. TECHNIQUE: CT of the chest is performed on a spiral scan at 2 mm thick sections. Study is performed with intravenous contrast timed for evaluation for pulmonary embolism. This will limit additional po rtions of the evaluation. 3-D MIP images reconstructed by the technologist are reviewed on the compu ter in the coronal and sagittal planes. Contrast used:100cc mL of Isovue 370 with IV Contrast, (none if empty) Oral contrast used: (none if empty) CT DLP: 284.9 mGycm, Automated exposure control for dose reduction was used. FINDINGS: No persistent filling defects are evident to suggest an acute pulmonary embolism. No mediastinal or hilar adenopathy enlarged by CT criteria is evident. The ascending aorta diameter at the level of the main pulmonary artery is 3.3 cm. The main pulmonary artery diameter at the bifurcation is 2.0 cm. May be some infiltrate or scarring lateral right apex. Monitoring is recommended. There is an expansile lateral right seventh rib suspicious for metastasis this measures transverse 1. [address] sections were through the upper abdomen. There are several ill-defined large hypodense ma sses within the liver suspicious for metastatic disease is includes both left and right lobes a pancr eatic mass may be present at the head of the pancreas IMPRESSION: 1. No acute pulmonary embolism. 2. Metastatic lesions to the right seventh lateral rib and known metastasis within the liver. [facility], , 10/31/2024 9:31 PM
[2024-10-31] MEDS: KETOROLAC 15 MG/ML 1 ML VIAL IVP STA (21:55)
[2024-10-31] MEDS ORDERED: MORPHINE SULFATE 4 MG/ML SYRINGE IV PRN (22:15)
[2024-10-31] MEDS ORDERED: NALOXONE 0.4 MG/ML 1 ML VIAL IV PRN (22:15)
--- NOTE | 2024-10-31 22:15 | ED ---
General Adult HPI - General Chief complaint: Chest Pain Stated complaint: chest pain Time Seen by Provider: 10/31/24 19:50 Source: patient, RN notes reviewed, old records reviewed Mode of arrival: wheelchair Limitations: no limitations - History of Present Illness Initial comments: Is a 69-year-old female presents emergency department complaining of chest pain. Started early today around 1500. Endorses nausea with it. Endorses chronic shortness of breath. States that it is substernal with radiation to her right shoulder blade. Does have reproducible back and shoulder tenderness due to new stretches and attributes that to her current symptoms however chest pain is not reproducible on palpation. No cardiac history. Does have a history of cancer currently not on chemo or radiation. No other acute complaints at this time. Presents for further evaluation at this time. - Related Data Home Medications Medication Instructions Recorded Confirmed Cefdinir [Omnicef] 300 mg PO BID 10/01/24 10/04/24 Gabapentin 600 mg PO TID 10/01/24 10/04/24 metroNIDAZOLE [Flagyl] 500 mg PO BID 10/01/24 10/04/24 Previous Rx's Medication Instructions Recorded HYDROmorphone [Dilaudid] 2 mg PO Q3H PRN 3 Days #24 tab 10/08/24 Allergies Allergy/AdvReac Type Severity Reaction Status Date / Time codeine AdvReac Nausea & Verified 10/31/24 19:26 Vomiting hydrocodone [From [place]] AdvReac Nausea & Verified 10/31/24 19:26 Vomiting morphine AdvReac Nausea & Verified 10/31/24 19:26 Vomiting Review of Systems ROS Statement: Those systems with pertinent positive or pertinent negative responses have been documented in the HPI. Review of Systems: CONST: Denies fever EYES: Denies blurry vision ENT: Denies nasal congestion C/V: Endorses chest pain RESP: Denies shortness of breath GI: Denies abdominal pain : Denies dysuria SKIN: Denies rash. MSK: Endorses back pain NEURO: Denies headache ROS Other: All systems not noted in ROS Statement are negative. Past Medical History Past Medical History: Cancer Additional Past Medical History / Comment(s): current chemo treatment neuroendocrine tumors-last chemo dose Sep-next dose due on 10-19-23, current tx w/ gabapentin for shingles pain-rash is healed under rt breast, hx right breast with radiation and chemo in 2001, previous fall with broken rib and pneumothorax requiring chest tube 2017 History of Any Multi-Drug Resistant Organisms: None Reported Past Surgical History: Breast Surgery Additional Past Surgical History / Comment(s): 2012 BENIGN TUMOR REMOVED FROM NECK, 2001 LUMPECTOMY RIGHT BREAST, liver biopsy with cancer cells but unknown if metastasis from breast or lung, liver biopsy ( has drain ) Past Anesthesia/Blood Transfusion Reactions: No Reported Reaction Additional Past Anesthesia/Blood Transfusion Reaction / Comment(s): no hx blood transfusion Past Psychological History: No Psychological Hx Reported Smoking Status: Former smoker Past Alcohol Use History: None Reported Past Drug Use History: None Reported - Past Family History Mother Family Medical History: Cancer Additional Family Medical History / Comment(s): uterine or cervical patient unsure General Exam - General Exam Comments Initial Comments: General: Appears in no acute distress. HEAD: Normal with no signs of head trauma. EYES: PERRLA, EOMI, conjunctiva normal, no discharge. ENT: Hearing grossly intact, normal oropharynx. RESPIRATORY: Clear breath sounds bilaterally. No wheezes, rales, or rhonchi. C/V: Regular rate and rhythm. S1 and S2 auscultated, no edema, peripheral pulses 2+ and intact throughout ABD: Abd is soft, nontender, nondistended EXT: Normal range of motion, no obvious deformity. Chest pain not reproducible on palpation. Patient does have right sided trapezius muscle tenderness reproducible ability on palpation which patient states is her back pain that she is experiencing. SKIN: No rashes or lesions observed on exposed skin. NEURO: Alert and oriented x 4. Limitations: no limitations Course Vital Signs 10/31/24 10/31/24 10/31/24 19:23 19:45 20:56 Temperature 98.2 F 97.6 F Pulse Rate 81 77 78 Respiratory 18 18 18 Rate Blood Pressure 167/107 177/100 165/93 O2 Sat by Pulse 96 96 97 Oximetry 10/31/24 21:24 Temperature Pulse Rate 76 Respiratory 16 Rate Blood Pressure 164/87 O2 Sat by Pulse 96 Oximetry Medical Decision Making - Medical Decision Making Was pt. sent in by a medical professional or institution (, PA, SUPERVISOR TYPE PHOTOGRAPHY, urgent care, hospital, or retirement...) When possible be specific @ -No Did you speak to anyone other than the patient for history (EMS, parent, family, police, friend...)? What history was obtained from this source @ -No Did you review nursing and triage notes (agree or disagree)? Why? @ -I reviewed and agree with nursing and triage notes Were old charts reviewed (outside hosp., previous admission, EMS record, old EKG, old radiological studies, urgent care reports/EKG's, retirement records)? Report findings @ -No old charts were reviewed Differential Diagnosis (chest pain, altered mental status, abdominal pain women, abdominal pain men, vaginal bleeding, weakness, fever, dyspnea, syncope, headache, dizziness, GI bleed, back pain, seizure, CVA, palpatations, mental health, musculoskeletal)? @ -Differential Chest Pain: Stable Angina, Unstable Angina, STEMI, NSTEMI Aortic Dissection, Pneumothorax, Musculoskeletal, Esophageal Spasm GERD, Cholecystitis, Pancreatitis, Zoster, this is not meant to be an all-inclusive list. EKG interpreted by me (3pts min.). @ -As above X-rays interpreted by me (1pt min.). @ -X-ray reveals no obvious acute cardiopulmonary process. CT interpreted by me (1pt min.). @ -CT PE negative for pulmonary embolism. U/S interpreted by me (1pt. min.). @ -None done What testing was considered but not performed or refused? (CT, X-rays, U/S, labs)? Why? @ -None What meds were considered but not given or refused? Why? @ -None Did you discuss the management of the patient with other professionals (professionals i.e. , PA, SUPERVISOR TYPE PHOTOGRAPHY, lab, RT, psych nurse, clinical social work therapist, microgrinder operator, teacher, hydrographical technical officer, case management manager)? Give summary @ -No Was smoking cessation discussed for >3mins.? @ -No Was critical care preformed (if so, how long)? @ -No Were there social determinants of health that impacted care today? How? (Homelessness, low income, unemployed, alcoholism, drug addiction, transportati on, low edu. Level, literacy, decrease access to med. care, [place] [facility], rehab)? @ -No Was there de-escalation of care discussed even if they declined (Discuss DNR or withdrawal of care, Hospice)? DNR status @ -No What co-morbidities impacted this encounter? (DM, HTN, Smoking, COPD, CAD, Cancer, CVA, ARF, Chemo, Hep., AIDS, mental health diagnosis, sleep apnea, morbid obesity)? @ -Cancer Was patient admitted / discharged? Hospital course, mention meds given and route, prescriptions, significant lab abnormalities, going to OR and other pertinent info. @ -Patient presents with somewhat atypical sounding chest pain. Will obtain cardiopulmonary workup. Vital signs within acceptable limits. Patient was in agreement this plan. Nitro did nothing for pain. Was given 324 mg of aspirin. Discussed morphine for pain control but she declines. Patient given Toradol instead. EKG shows T wave inversions which appear acute when compared with EKG from August of this year. Imaging including CT PE negative for any obvious acute process. Has known lesion to the right lateral rib as well as the liver. Laboratory studies remarkable for undetectable troponin. I discussed results with the patient. Nitro did nothing for the chest pain. We will admit the patient for troponin trending, cardiology evaluation as well as an echo. Patient was in agreement this plan. I discussed the case with the admitting team, LILY Restrepo of [facility] [place] who accepted the admission. Undiagnosed new problem with uncertain prognosis? @ -No Drug Therapy requiring intensive monitoring for toxicity (Heparin, Nitro, Insul in, Cardizem)? @ -No Were any procedures done? @ -No Diagnosis/symptom? @Chest pain Acute, or Chronic, or Acute on Chronic? @ -Acute Uncomplicated (without systemic symptoms) or Complicated (systemic symptoms)? @ -Complicated Side effects of treatment? @ -No Exacerbation, Progression, or Severe Exacerbation? @ -No Poses a threat to life or bodily function? How? (Chest pain, [place], [place], pneumonia, PE, COPD, DKA, ARF, appy, cholecystitis, CVA, Diverticulitis, Homicidal, Suicidal, threat to staff... and all critical care pts) @ -Potentially, yes - Lab Data Result diagrams: 10/31/24 20:23 10/31/24 20:23 Lab Results 10/31/24 10/31/24 10/31/24 Range/Units 20:23 20:23 20:23 WBC 6.9 (3.8-10.6) k/uL RBC 4.75 (3.80-5.40) m/uL Hgb 14.6 (11.4-16.0) gm/dL Hct 45.4 (34.0-46.0) % MCV 95.6 (80.0-100.0) fL MCH 30.7 (25.0-35.0) pg MCHC 32.1 (31.0-37.0) g/dL RDW 15.3 (11.5-15.5) % Plt Count 179 (150-450) k/uL MPV 6.8 Neutrophils % 60 % Lymphocytes % 25 % Monocytes % 7 % Eosinophils % 5 % Basophils % 0 % Neutrophils # 4.2 (1.3-7.7) k/uL Lymphocytes # 1.8 (1.0-4.8) k/uL Monocytes # 0.5 (0-1.0) k/uL Eosinophils # 0.3 (0-0.7) k/uL Basophils # 0.0 (0-0.2) k/uL PT 11.3 (10.0-12.5) sec INR 1.0 (<1.2) APTT 22.5 (22.0-30.0) sec D-Dimer 3.63 H (<0.60) mg/L FEU Sodium 136 L (137-145) mmol/L Potassium 4.1 (3.5-5.1) mmol/L Chloride 105 (98-107) mmol/L Carbon Dioxide 26 (22-30) mmol/L Anion Gap 5 mmol/L BUN 8 (7-17) mg/dL Creatinine 0.48 L (0.52-1.04) mg/dL Est GFR (CKD-EPI)AfAm >90 (>60 ml/min/1.73 sqM) Est GFR (CKD-EPI)NonAf >90 (>60 ml/min/1.73 sqM) Glucose 101 H (74-99) mg/dL Calcium 8.8 (8.4-10.2) mg/dL Magnesium 1.9 (1.6-2.3) mg/dL Total Bilirubin 0.9 (0.2-1.3) mg/dL AST 54 H (14-36) U/L ALT 12 (4-34) U/L Alkaline Phosphatase 57 (38-126) U/L Troponin I (0.000-0.034) ng/mL NT-Pro-B Natriuret Pep 514 pg/mL Total Protein 7.8 (6.3-8.2) g/dL Albumin 4.1 (3.5-5.0) g/dL 10/31/24 Range/Units 20:23 WBC (3.8-10.6) k/uL RBC (3.80-5.40) m/uL Hgb (11.4-16.0) gm/dL Hct (34.0-46.0) % MCV (80.0-100.0) fL MCH (25.0-35.0) pg MCHC (31.0-37.0) g/dL RDW (11.5-15.5) % Plt Count (150-450) k/uL MPV Neutrophils % % Lymphocytes % % Monocytes % % Eosinophils % % Basophils % % Neutrophils # (1.3-7.7) k/uL Lymphocytes # (1.0-4.8) k/uL Monocytes # (0-1.0) k/uL Eosinophils # (0-0.7) k/uL Basophils # (0-0.2) k/uL PT (10.0-12.5) sec INR (<1.2) APTT (22.0-30.0) sec D-Dimer (<0.60) mg/L FEU Sodium (137-145) mmol/L Potassium (3.5-5.1) mmol/L Chloride (98-107) mmol/L Carbon Dioxide (22-30) mmol/L Anion Gap mmol/L BUN (7-17) mg/dL Creatinine (0.52-1.04) mg/dL Est GFR (CKD-EPI)AfAm (>60 ml/min/1.73 sqM) Est GFR (CKD-EPI)NonAf (>60 ml/min/1.73 sqM) Glucose (74-99) mg/dL Calcium (8.4-10.2) mg/dL Magnesium (1.6-2.3) mg/dL Total Bilirubin (0.2-1.3) mg/dL AST (14-36) U/L ALT (4-34) U/L Alkaline Phosphatase (38-126) U/L Troponin I <0.012 (0.000-0.034) ng/mL NT-Pro-B Natriuret Pep pg/mL Total Protein (6.3-8.2) g/dL Albumin (3.5-5.0) g/dL - EKG Data -: EKG Interpreted by Me EKG Comments: 12-lead Electrocardiogram Interpretation Note EKG was reviewed and interpreted by myself. 12-lead ECG performed at 1939 is in terpreted by me as revealing normal sinus rhythm at a rate of 77 beats per minute. Indeterminate axis. [place] interval is 138 ms, QRS duration is 86 ms, QTc is 421 ms.. T wave inversions in the inferior leads II, III, aVF. No reciprocal changes appreciated.. R wave progression across the precordium was satisfactory. Disposition Clinical Impression: Chest pain Disposition: ADMITTED IP TO THIS HOSP Condition: Stable Referrals: Trena,Herbie, [Primary Care Provider] - 1-2 days Time of Disposition: 22:00
[2024-10-31] MEDS: MORPHINE SULFATE 4 MG/ML SYRINGE IVP STA (22:19)
[2024-10-31] MEDS: traMADol 50 MG TAB PO STA (22:40)
[2024-10-31] MEDS: HEPARIN SODIUM,PORCINE 5,000 UNIT/ML 1 ML VIAL SQ SCH (23:23)
[2024-10-31] MEDS: MELATONIN 5 MG TABLET PO SCH (23:39)
[2024-11-01 03:16] LABS: Basophils % (A) 0 %; Eosinophils # (A) 0.3 k/uL (0-0.7); Eosinophils % (A) 5 %; HCT 42.1 % (34.0-46.0); HGB 13.3 gm/dL (11.4-16.0); Lymphocytes # (A) 1.6 k/uL (1.0-4.8); Lymphocytes % (A) 23 %; MCH 30.2 pg (25.0-35.0); MCHC 31.6 g/dL (31.0-37.0); MCV 95.7 fL (80.0-100.0); Mean Platelet Volume 6.8; Monocytes # (A) 0.6 k/uL (0-1.0); Monocytes % (A) 8 %; Neutrophils # (A) 4.3 k/uL (1.3-7.7); Neutrophils % (A) 62 %; Platelet Count 167 k/uL (150-450); RDW 15.2 % (11.5-15.5); WBC 6.9 k/uL (3.8-10.6)
[2024-11-01 03:29] LABS: ALT 11 U/L (4-34); AST 45 U/L (14-36); African American GFR (CKD) >90 (>60 ml/min/1.73 sqM); Albumin 3.8 g/dL (3.5-5.0); Alkaline Phosphatase 65 U/L (38-126); Anion Gap 5 mmol/L; Blood Urea Nitrogen 5 mg/dL (7-17); Calcium 8.3 mg/dL (8.4-10.2); Carbon Dioxide 24 mmol/L (22-30); Chloride 106 mmol/L (98-107); Glucose 112 mg/dL (74-99); Non-African American GFR(CKD) >90 (>60 ml/min/1.73 sqM); Potassium 3.4 mmol/L (3.5-5.1); Sodium 135 mmol/L (137-145); Total Bilirubin 0.6 mg/dL (0.2-1.3); Total Protein 7.1 g/dL (6.3-8.2)
[2024-11-01] MEDS: KETOROLAC 15 MG/ML 1 ML VIAL IVP PRN (03:40)
[2024-11-01] MEDS: ONDANSETRON 4 MG/2 ML VIAL IVP PRN (05:54)
[2024-11-01] MEDS: HYDROmorphone 0.5 MG/0.5 ML SYRINGE IVP STA (07:48)
[2024-11-01] MEDS: amLODIPine 5 MG TAB PO SCH (09:27)
--- NOTE | 2024-11-01 12:23 | P.HPIM ---
History of Present Illness Patient is a pleasant 69-year-old female came in with complaints of chest pain in the midsternal area radiating to the back. Patient denied any shortness of breath denied any lightheadedness. She does have reproducible pain in the back patient's troponins are negative EKG did not show any acute ST-T wave changes cardiology evaluated the patient do not believe it is a cardiac chest pain patient had a CT of the chest which did not show any pulmonary embolism but showed metastatic lesions to the seventh lateral rib. Patient has a history of neuroendocrine tumor was on treatment but presently not receiving any treatment opted palliative care. Patient has not been taking her Dilaudid at home but does take gabapentin. REVIEW OF SYSTEMS: All other systems are negative except those mentioned in the HPI PHYSICAL EXAMINATION: GENERAL: The patient is alert and oriented x3, not in any acute distress. Well developed, well nourished. HEENT: Pupils are round and equally reacting to light. EOMI. No scleral icterus. No conjunctival pallor. Normocephalic, atraumatic. No pharyngeal erythema. No thyromegaly. CARDIOVASCULAR: S1 and S2 present. No murmurs, rubs, or gallops. PULMONARY: Chest is clear to auscultation, no wheezing or crackles. ABDOMEN: Soft, nontender, nondistended, normoactive bowel sounds. No palpable or ganomegaly. MUSCULOSKELETAL: No joint swelling or deformity. EXTREMITIES: No cyanosis, clubbing, or pedal edema. NEUROLOGICAL: Gross neurological examination did not reveal any focal deficits. SKIN: No rashes. Assessment and plan -Chest pain musculoskeletal secondary to mets to the chest wall. Rule out acute coronary syndromes cardiology evaluate patient no further recommendations from cardiology. 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 Palliative care will follow-up with the patient as an outpatient as well. Past Medical History Past Medical History: Cancer Additional Past Medical History / Comment(s): current chemo treatment neuroendocrine tumors-last chemo dose Dec 14 tx w/ gabapentin for shingles pain- rash is healed under rt breast, hx right breast with radiation and chemo in 2001, previous fall with broken rib and pneumothorax requiring chest tube 2017 History of Any Multi-Drug Resistant Organisms: None Reported Past Surgical History: Breast Surgery Additional Past Surgical History / Comment(s): 2013 BENIGN TUMOR REMOVED FROM NECK, 2002 LUMPECTOMY RIGHT BREAST, liver biopsy with cancer cells but unknown if metastasis from breast or lung, liver biopsy ( has drain ), tendon trasnfer, endrocrine tumar removal in radial Past Anesthesia/Blood Transfusion Reactions: No Reported Reaction Additional Past Anesthesia/Blood Transfusion Reaction / Comment(s): no hx blood transfusion Past Psychological History: No Psychological Hx Reported Smoking Status: Former smoker Past Alcohol Use History: None Reported Additional Past Alcohol Use History / Comment(s): Quit smoking over 10 years ago,smoked approx 20 yrs 1 ppd Past Drug Use History: None Reported - Past Family History Mother Family Medical History: Cancer Additional Family Medical History / Comment(s): uterine CA Medications and Allergies Home Medications Medication Instructions Recorded Confirmed Type Gabapentin 600 mg PO TID 10/01/24 11/01/24 History HYDROmorphone [Dilaudid] 2 mg PO Q3H PRN 3 Days #24 tab 10/08/24 11/01/24 Rx Celecoxib [CeleBREX] 200 mg PO BID PRN #60 cap 11/01/24 Rx Famotidine [Pepcid] 20 mg PO BID #30 tablet 11/01/24 Rx Ondansetron Odt [Zofran Odt] 4 mg PO Q8HR PRN #30 tab 11/01/24 Rx amLODIPine [Norvasc] 5 mg PO DAILY #30 tab 11/01/24 Rx polyethylene glycoL 3350 [Miralax] 17 gm PO DAILY PRN #15 packet 11/01/24 Rx Allergies Allergy/AdvReac Type Severity Reaction Status Date / Time codeine AdvReac Nausea & Verified 11/01/24 07:54 Vomiting hydrocodone [From [place]] AdvReac Nausea & Verified 11/01/24 07:54 Vomiting morphine AdvReac Nausea & Verified 11/01/24 07:54 Vomiting Physical Exam Vitals: Vital Signs Temp Pulse Pulse Resp BP BP Pulse Ox 11/01/24 07:45 98.3 F 76 16 151/90 96 11/01/24 06:06 73 12 154/92 94 L 11/01/24 03:56 75 12 162/96 94 L 11/01/24 00:26 69 17 161/96 94 L 10/31/24 21:24 76 16 164/87 96 10/31/24 20:56 78 18 165/93 97 10/31/24 19:45 97.6 F 77 18 177/100 96 10/31/24 19:23 98.2 F 81 18 167/107 96 Intake and Output 10/31/24 11/01/24 11/01/24 22:59 06:59 14:59 Intake Total 10 Balance 10 Intake: IV 10 Invasive Line 1 10 Other: Weight 63.503 kg 63.503 kg Results CBC & Chem 7: 11/01/24 02:58 11/01/24 02:58 Labs: Abnormal Lab Results - Last 24 Hours (Table) 10/31/24 10/31/24 11/01/24 Range/Units 20:23 20:23 02:58 D-Dimer 3.63 H (<0.60) mg/L FEU Sodium 136 L 135 L (137-145) mmol/L Potassium 3.4 L (3.5-5.1) mmol/L BUN 5 L (7-17) mg/dL Creatinine 0.48 L 0.46 L (0.52-1.04) mg/dL Glucose 101 H 112 H (74-99) mg/dL Calcium 8.3 L (8.4-10.2) mg/dL AST 54 H 45 H (14-36) U/L Thrombosis Risk Factor Assmnt - Choose All That Apply Each Risk Factor Represents 2 Points: Age 61-74 years Thrombosis Risk Factor Assessment Total Risk Factor Score: 2 Thrombosis Risk Factor Assessment Level: Low Risk
--- NOTE | 2024-11-01 12:23 | P.DS ---
Providers Date of admission: 10/31/24 22:16 Attending physician: Deon Vanegas Consults: 10/31/24 22:15 Consult Physician Routine Consulting Provider: [facility] Consult Reason/Comments: chest pain Do you want consulting provider notified?: Yes 11/01/24 08:53 Consult Physician Routine Consulting Provider: Paula Stern Consult Reason/Comments: known ca pt Do you want consulting provider notified?: Yes Primary care physician: Herbie Albrecht DO Hospital Course: Patient is a pleasant 69-year-old female came in with complaints of chest pain in the midsternal area radiating to the back. Patient denied any shortness of breath denied any lightheadedness. She does have reproducible pain in the back patient's troponins are negative EKG did not show any acute ST-T wave changes cardiology evaluated the patient do not believe it is a cardiac chest pain patient had a CT of the chest which did not show any pulmonary embolism but showed metastatic lesions to the seventh lateral rib. Patient has a history of neuroendocrine tumor was on treatment but presently not receiving any treatment opted palliative care. Patient has not been taking her Dilaudid at home but does take gabapentin. REVIEW OF SYSTEMS: All other systems are negative except those mentioned in the HPI PHYSICAL EXAMINATION: GENERAL: The patient is alert and oriented x3, not in any acute distress. Well developed, well nourished. HEENT: Pupils are round and equally reacting to light. EOMI. No scleral icterus. No conjunctival pallor. Normocephalic, atraumatic. No pharyngeal erythema. No thyromegaly. CARDIOVASCULAR: S1 and S2 present. No murmurs, rubs, or gallops. PULMONARY: Chest is clear to auscultation, no wheezing or crackles. ABDOMEN: Soft, nontender, nondistended, normoactive bowel sounds. No palpable organomegaly. MUSCULOSKELETAL: No joint swelling or deformity. EXTREMITIES: No cyanosis, clubbing, or pedal edema. NEUROLOGICAL: Gross neurological examination did not reveal any focal deficits. SKIN: No rashes. Assessment and plan -Chest pain musculoskeletal secondary to mets to the chest wall. Rule out acute coronary syndromes cardiology evaluate patient no further recommendations from cardiology. 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 Palliative care will follow-up with the patient as an outpatient as well. Patient Condition at Discharge: Stable Plan - Discharge Summary Discharge Rx Participant: No New Discharge Prescriptions: New Famotidine [Pepcid] 20 mg PO BID #30 tablet Ondansetron Odt [Zofran Odt] 4 mg PO Q8HR PRN #30 tab PRN Reason: Nausea And Vomiting Celecoxib [CeleBREX] 200 mg PO BID PRN #60 cap PRN Reason: Pain polyethylene glycoL 3350 [Miralax] 17 gm PO DAILY PRN #15 packet PRN Reason: Constipation amLODIPine [Norvasc] 5 mg PO DAILY #30 tab Continue Gabapentin 600 mg PO TID HYDROmorphone [Dilaudid] 2 mg PO Q3H PRN 3 Days #24 tab PRN Reason: Pain Discharge Medication List Gabapentin 600 mg PO TID 10/01/24 [History] HYDROmorphone [Dilaudid] 2 mg PO Q3H PRN 3 Days #24 tab 10/08/24 [Rx] Celecoxib [CeleBREX] 200 mg PO BID PRN #60 cap 11/01/24 [Rx] Famotidine [Pepcid] 20 mg PO BID #30 tablet 11/01/24 [Rx] Ondansetron Odt [Zofran Odt] 4 mg PO Q8HR PRN #30 tab 11/01/24 [Rx] amLODIPine [Norvasc] 5 mg PO DAILY #30 tab 11/01/24 [Rx] polyethylene glycoL 3350 [Miralax] 17 gm PO DAILY PRN #15 packet 11/01/24 [Rx] Follow up Appointment(s)/Referral(s): Paula Stern MD [STAFF PHYSICIAN] - 1 Week Herbie Albrecht DO [Primary Care Provider] - 3 Days [facility] [NON-STAFF] - As Needed Discharge Disposition: HOME WITH HOME HEALTH SERVICES
--- NOTE | 2024-11-01 12:52 | P.CRDCN ---
History of Present Illness Consult date: 11/01/24 Consult reason: chest pain History of present illness: This is a 69-year-old female with no previous cardiac history and does not follow with a cytogeneticist. 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 We have been asked to evaluate the patient for chest pain. Patient gives history of chest pain and nausea that was in the midsternal area and a little bit on the right-hand side. The pain had been going on for couple of days and also went straight through to the back. Blood pressure 151/90, heart rate in the 70s, pulse ox 96% on room air. -EKG: Sinus rhythm with no acute ST-T wave changes -Chest x-ray: No acute process. -CTA chest showed no pulmonary embolism. Metastatic lesions to the right seventh lateral rib and known metastasis within the liver. -Laboratory studies: CBC within normal limits. Troponin negative x 3. D-dimer 3.63. -Home cardiac medications: None Review Of Systems: At the time of my exam: CONSTITUTIONAL: Denies fever or chills. HEENT: Denies blurred vision, vision changes, or eye pain. Denies hemoptysis CARDIOVASCULAR: Denies chest pain. Denies orthopnea. Denies PND. Denies palpitations RESPIRATORY: Denies shortness of breath. GASTROINTESTINAL: Denies abdominal pain. Denies nausea or vomiting. HEMATOLOGIC: Denies bleeding disorders. GENITOURINARY: Denies any blood in urine. SKIN: Denies puritis. Denies rash. Physical examination: Gen: This is a 69-year-old female in no acute distress VS: reviewed HEENT: Head is atraumatic, normocephalic. Pupils equal, round. Sclerae is anicteric. NECK: Supple. No JVD. LUNGS: Clear to auscultation. No wheezes or rhonchi. No intercostal retractions. HEART: Regular rate and rhythm. No murmur. Positive chest wall tenderness with palpation ABDOMEN: Soft No tenderness. EXTREMITIES: No pedal edema. No calf tenderness. NEUROLOGICAL: Patient is awake, alert and oriented x3. Assessment: Atypical chest pain, chest pain secondary to chest wall pain History of endocrine tumor with metastatic disease Hypertension Plan: Start patient on amlodipine 5 mg daily with parameters to hold if systolic blood pressure less than 120 Obtain 2-D echocardiogram and Doppler study to assess cardiac structure and function If echocardiogram is unremarkable, patient is cleared for discharge Thank you kindly for this consultation. Nurse practitioner note has been reviewed, I agree with documented findings and plan of care. Patient was seen and examined. Past Medical History Past Medical History: Cancer Additional Past Medical History / Comment(s): current chemo treatment neuroendocrine tumors-last chemo dose Sep-next dose due on 10-19-23,current tx w/ gabapentin for shingles pain-rash is healed under rt breast, hx right breast with radiation and chemo in 2001, previous fall with broken rib and pneumothorax requiring chest tube 2016 History of Any Multi-Drug Resistant Organisms: None Reported Past Surgical History: Breast Surgery Additional Past Surgical History / Comment(s): 2012 BENIGN TUMOR REMOVED FROM NECK, 2001 LUMPECTOMY RIGHT BREAST, liver biopsy with cancer cells but unknown if metastasis from breast or lung, liver biopsy ( has drain ) Past Anesthesia/Blood Transfusion Reactions: No Reported Reaction Additional Past Anesthesia/Blood Transfusion Reaction / Comment(s): no hx blood transfusion Past Psychological History: No Psychological Hx Reported Smoking Status: Former smoker Past Alcohol Use History: None Reported Past Drug Use History: None Reported - Past Family History Mother Family Medical History: Cancer Additional Family Medical History / Comment(s): uterine or cervical patient u nsure Medications and Allergies Home Medications Medication Instructions Recorded Confirmed Type Gabapentin 600 mg PO TID 10/01/24 11/01/24 History HYDROmorphone [Dilaudid] 2 mg PO Q3H PRN 3 Days #24 tab 10/08/24 11/01/24 Rx Celecoxib [CeleBREX] 200 mg PO BID PRN #60 cap 11/01/24 Rx Famotidine [Pepcid] 20 mg PO BID #30 tablet 11/01/24 Rx Ondansetron Odt [Zofran Odt] 4 mg PO Q8HR PRN #30 tab 11/01/24 Rx amLODIPine [Norvasc] 5 mg PO DAILY #30 tab 11/01/24 Rx polyethylene glycoL 3350 [Miralax] 17 gm PO DAILY PRN #15 packet 11/01/24 Rx Allergies Allergy/AdvReac Type Severity Reaction Status Date / Time codeine AdvReac Nausea & Verified 11/01/24 07:54 Vomiting hydrocodone [From [place]] AdvReac Nausea & Verified 11/01/24 07:54 Vomiting morphine AdvReac Nausea & Verified 11/01/24 07:54 Vomiting Physical Exam Vitals: Vital Signs Temp Pulse Pulse Resp BP BP Pulse Ox 11/01/24 07:45 98.3 F 76 16 151/90 96 11/01/24 06:06 73 12 154/92 94 L 11/01/24 03:56 75 12 162/96 94 L 11/01/24 00:26 69 17 161/96 94 L 10/31/24 21:24 76 16 164/87 96 10/31/24 20:56 78 18 165/93 97 10/31/24 19:45 97.6 F 77 18 177/100 96 10/31/24 19:23 98.2 F 81 18 167/107 96 Intake and Output 10/31/24 11/01/24 11/01/24 22:59 06:59 14:59 Intake Total 10 Balance 10 Intake: IV 10 Invasive Line 1 10 Other: Weight 63.503 kg Results 11/01/24 02:58 11/01/24 02:58 Cardiac Enzymes 10/31/24 10/31/24 10/31/24 Range/Units 20:23 20:23 23:45 AST 54 H (14-36) U/L Troponin I <0.012 <0.012 (0.000-0.034) ng/mL 11/01/24 11/01/24 Range/Units 02:58 02:58 AST 45 H (14-36) U/L Troponin I <0.012 (0.000-0.034) ng/mL Coagulation 10/31/24 Range/Units 20:23 PT 11.3 (10.0-12.5) sec APTT 22.5 (22.0-30.0) sec CBC 10/31/24 11/01/24 Range/Units 20:23 02:58 WBC 6.9 6.9 (3.8-10.6) k/uL RBC 4.75 4.40 (3.80-5.40) m/uL Hgb 14.6 13.3 (11.4-16.0) gm/dL Hct 45.4 42.1 (34.0-46.0) % Plt Count 179 167 (150-450) k/uL Comprehensive Metabolic Panel 10/31/24 11/01/24 Range/Units 20:23 02:58 Sodium 136 L 135 L (137-145) mmol/L Potassium 4.1 3.4 L (3.5-5.1) mmol/L Chloride 105 106 (98-107) mmol/L Carbon Dioxide 26 24 (22-30) mmol/L BUN 8 5 L (7-17) mg/dL Creatinine 0.48 L 0.46 L (0.52-1.04) mg/dL Glucose 101 H 112 H (74-99) mg/dL Calcium 8.8 8.3 L (8.4-10.2) mg/dL AST 54 H 45 H (14-36) U/L ALT 12 11 (4-34) U/L Alkaline Phosphatase 57 65 (38-126) U/L Total Protein 7.8 7.1 (6.3-8.2) g/dL Albumin 4.1 3.8 (3.5-5.0) g/dL Current Medications Generic Name Dose Route Start Last Admin Trade Name Freq PRN Reason Stop Dose Admin Heparin Sodium (Porcine) 5,000 unit 11/01/24 00:00 10/31/24 23:23 Heparin Sodium,Porcine 5,000 Unit/Ml 1 Ml Vial SQ 5,000 unit Q8HR AWILDA Administration Ketorolac Tromethamine 15 mg 10/31/24 22:15 11/01/24 03:40 Ketorolac 15 Mg/Ml 1 Ml Vial IVP 11/03/24 22:16 15 mg Q6HR PRN Administration Moderate Pain (Scale 4 to 6) Melatonin 5 mg 10/31/24 23:33 10/31/24 23:39 Melatonin 5 Mg Tablet PO 5 mg HS AWILDA Administration Morphine Sulfate 4 mg 10/31/24 22:15 Morphine Sulfate 4 Mg/Ml Syringe IV Q4HR PRN Severe Pain (Scale 7 to 10) Naloxone HCl 0.2 mg 10/31/24 22:15 Naloxone 0.4 Mg/Ml 1 Ml Vial IV Q2M PRN Opioid Reversal Ondansetron HCl 4 mg 10/31/24 22:15 11/01/24 05:54 Ondansetron 4 Mg/2 Ml Vial IVP 4 mg Q8HR PRN Administration Nausea And Vomiting Intake and Output 10/31/24 11/01/24 11/01/24 22:59 06:59 14:59 Intake Total 10 Balance 10 Intake: IV 10 Invasive Line 1 10 Other: Weight 63.503 kg 11/01/24 02:58 11/01/24 02:58
[2024-11-01] MEDS ORDERED: Potassium Replacement Protocol 1 EACH MISC MISCELLANE PRN (17:38)
[2024-11-01] MEDS: POTASSIUM CHLORIDE ER 20 MEQ TAB.ER PO SCH (17:52)
--- NOTE | 2024-11-01 18:08 | P.CONS ---
History of Present Illness - Reason for Consult Consult date: 11/01/24 nueroendocrine cancer Requesting physician: Aziza Wynne - Chief Complaint CP - History of Present Illness Ms. 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 Starting in July 2022, she noted onset of right radicular arm pain radiating down the entire arm and into her right hand causing weakness along with numbness in the thenar eminence of the right hand. She had carpal tunnel release procedure performed on 09/29/2022. As part of the work-up for the radicular arm pain, she had an MRI of the cervical spine without IV contrast on 09/29/2022, which revealed mild disc height loss at C5 and C6 and moderate disc loss at C6-C7. Of note, multiple indeterminate T1 and T2 hypointense marrow space lesions were present that did not represent benign hemangiomata. She was also noted to have mild spinal canal stenosis at C5-C6 along with multilevel neuroforaminal narrowing. It also noted a reversal of normal cervical lordosis. A nuclear medicine bone scan performed on 10/28/2022 revealed abnormal uptake throughout the vertebral column that was likely due to degenerative changes. Abnormal uptake in the shoulders bilaterally (greater on the right) was likely due to arthritic changes. She also had abnormal uptake in the left wrist which was also thought to be due to arthritic changes and potentially previous trauma. PET/CT on 12/17/2022 noted FDG avid liver lesions along with retroperitoneal and periaortic lymphadenopathy. Biopsy of one of the liver lesions on 01/11/2023 revealed metastatic poorly differentiated non-small cell carcinoma with unclear primary. This was noted to be negative for ER, DC, and HER-2. Caris molecular profiling from tissue biopsy and guardant 360 Dx testing revealed no targetable mutations with PD-L1 CPS of 0%. Guardant did reveal single copy deletion of BR CA2 along with biallelic deletion of BRIA and PALB2 Repeat biopsy performed on 02/22/2023 from the liver revealed same findings as the initial biopsy with IHC positive for CK7, E-cadherin, and weakly positive for TTF-1. It was negative for CK20, CDX2, ER, GATA3, Napsin A, and p40. Brain MRI on 01/28/2023 was negative for intracranial metastases. Cancer type ID testing from additional liver biopsy was noted to have a 96% probability of neuroendocrine tumor. Dotatate PET/CT on 04/14/2023 noted soft tissue density near or involving the duodenum measuring 18 mm along with known liver lesions with lower intensity than in the duodenum. Second opinion for biopsy sent to [facility] noted focal positivity of INSM1 seen in neuroendocrine neoplasm, but not enough tissue was present for definitive diagnosis. 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 She had surgery on the right radial nerve sheath tumor performed on 06/22/2023, which was tolerated well complications. Pathology was consistent with metastatic neuroendocrine tumor with 4 mitoses per 10 high-power field and Ki-67 of 20%, consistent with intermediate grading. CT abdomen/pelvis on 07/05/2023 noted progressive enlargement of hepatic lesions wit h evidence of extrahepatic biliary obstruction with common hepatic duct measuring up to 15 mm, concerning for mild intrahepatic and extrahepatic obstruction. She was referred to [facility] and underwent biliary stent placement. She started cycle 1 of carboplatin/etoposide on 08/10/2023 with cycle 6 of treatment completed on 12/16/2023. Dotatate PET/CT on 12/22/2023 at [facility] noted no status at receptor avid lesions, which appeared to be consistent with at least partial response. Repeat staging CT scans performed on 04/26/2024 noted persistent lesions in the liver, which appear to have slightly enlarged compared to imaging from September 2023, or large lesion in the left hepatic lobe now measures 6.9 cm from 6.3 cm. Repeat dotatate PET/CT on 05/17/2024 revealed no evidence of progressive or recurrent disease with chromogranin A 227. Staging imaging on 08/13/2024 noted enlarged liver lesions with left hepatic lobe lesion measuring 8.6 cm in the largest dimension from 7.[address]-guided liver biopsy on 08/30/2024 was consistent with grade 1 neuroendocrine tumor with 2 mitotic fig ures per 10 high-power field. Since biopsy she has had multiple admissions, for liver abscess and intractable pain. At her last clinic f/u on 10/22/24, Cabometyx was recommended but she was unsure about continuing any systemic treatment. She wanted to recover physically and think about further treatment. Clinic f/u scheduled for 12/12/24. Patient presented to the emergency room with chest pain and nausea. Patient reports he began to have pain across her sternum that radiated to her upper back as well as associated nausea at which time she presented for further evaluation. Upon mission chest x-ray showed no acute cardiopulmonary processes. D-dimer elevated at 3.63. CTA chest was subsequently obtained, negative for acute pulmonary embolism. Metastatic lesions to the right seventh lateral rib and known metastasis within the liver. Serial troponins negative. BNP 514. Cardiology consulted. Bilirubin 0.6, AST 45, ALT 11, ALP 65. Blood counts stable, WBC 6.9, hemoglobin 13.3, platelets 167,000. Creatinine 0.46, GFR greater than 90. Patient is afebrile, SpO2. At todays visit pt reporting improvement in chest pain. Review of Systems 10 point ROS is negative except as stated in the HPI Past Medical History Past Medical History: Cancer Additional Past Medical History / Comment(s): current chemo treatment neuroendocrine tumors-last chemo dose Dec 14 tx w/ gabapentin for shingles pain- rash is healed under rt breast, hx right breast with radiation and chemo in 2001, previous fall with broken rib and pneumothorax requiring chest tube 2016 History of Any Multi-Drug Resistant Organisms: None Reported Past Surgical History: Breast Surgery Additional Past Surgical History / Comment(s): 2012 BENIGN TUMOR REMOVED FROM NECK, 2001 LUMPECTOMY RIGHT BREAST, liver biopsy with cancer cells but unknown if metastasis from breast or lung, liver biopsy ( has drain ), tendon trasnfer, endrocrine tumar removal in radial Past Anesthesia/Blood Transfusion Reactions: No Reported Reaction Additional Past Anesthesia/Blood Transfusion Reaction / Comm: no hx blood transfusion Past Psychological History: No Psychological Hx Reported Smoking Status: Former smoker Past Alcohol Use History: None Reported Additional Past Alcohol Use History / Comment(s): Quit smoking over 10 years ago,smoked approx 20 yrs 1 ppd Past Drug Use History: None Reported - Past Family History Mother Family Medical History: Cancer Additional Family Medical History / Comment(s): uterine CA Medications and Allergies Home Medications Medication Instructions Recorded Confirmed Type Gabapentin 600 mg PO TID 10/01/24 11/01/24 History HYDROmorphone [Dilaudid] 2 mg PO Q3H PRN 3 Days #24 tab 10/08/24 11/01/24 Rx Celecoxib [CeleBREX] 200 mg PO BID PRN #60 cap 11/01/24 Rx Famotidine [Pepcid] 20 mg PO BID #30 tablet 11/01/24 Rx HYDROcodone/APAP 7.5-325MG [[place] 1 - 2 tab PO Q6HR PRN #40 tab 11/01/24 Rx 7.5-325] Ondansetron Odt [Zofran Odt] 4 mg PO Q8HR PRN #30 tab 11/01/24 Rx amLODIPine [Norvasc] 5 mg PO DAILY #30 tab 11/01/24 Rx polyethylene glycoL 3350 [Miralax] 17 gm PO DAILY PRN #15 packet 11/01/24 Rx Allergies Allergy/AdvReac Type Severity Reaction Status Date / Time codeine AdvReac Nausea & Verified 11/01/24 07:54 Vomiting hydrocodone [From [place]] AdvReac Nausea & Verified 11/01/24 07:54 Vomiting morphine AdvReac Nausea & Verified 11/01/24 07:54 Vomiting Physical Exam Vitals: Vital Signs Temp Pulse Pulse Resp BP BP Pulse Ox 11/01/24 07:45 98.3 F 76 16 151/90 96 11/01/24 06:06 73 12 154/92 94 L 11/01/24 03:56 75 12 162/96 94 L 11/01/24 00:26 69 17 161/96 94 L 10/31/24 21:24 76 16 164/87 96 10/31/24 20:56 78 18 165/93 97 10/31/24 19:45 97.6 F 77 18 177/100 96 10/31/24 19:23 98.2 F 81 18 167/107 96 Intake and Output 10/31/24 11/01/24 11/01/24 22:59 06:59 14:59 Intake Total 10 Balance 10 Intake: IV 10 Invasive Line 1 10 Other: Weight 63.503 kg 63.503 kg - Constitutional General appearance: average body habitus, no acute distress - EENT Eyes: anicteric sclerae, EOMI ENT: hearing grossly normal - Respiratory Respiratory: bilateral: CTA - Cardiovascular Rhythm: regular - Gastrointestinal 3-4 finger breadths upon palpation of liver, tenderness in RUQ General gastrointestinal: hepatomegaly, tenderness - Integumentary Integumentary: no cyanotic, no jaundiced - Musculoskeletal no tenderness noted along right lateral ribs Musculoskeletal: strength equal bilaterally - Psychiatric Psychiatric: A&O x's 3 Results CBC & Chem 7: 11/01/24 02:58 11/01/24 02:58 Labs: Abnormal Lab Results - Last 24 Hours (Table) 10/31/24 10/31/24 11/01/24 Range/Units 20:23 20:23 02:58 D-Dimer 3.63 H (<0.60) mg/L FEU Sodium 136 L 135 L (137-145) mmol/L Potassium 3.4 L (3.5-5.1) mmol/L BUN 5 L (7-17) mg/dL Creatinine 0.48 L 0.46 L (0.52-1.04) mg/dL Glucose 101 H 112 H (74-99) mg/dL Calcium 8.3 L (8.4-10.2) mg/dL AST 54 H 45 H (14-36) U/L Chest x-ray: report reviewed CT scan - chest: report reviewed Assessment and Plan (1) Neuroendocrine carcinoma Current Visit: Yes Status: Acute Priority: High Code(s): C7A.8 - OTHER MALIGNANT NEUROENDOCRINE TUMORS SNOMED Code(s): 344642904 (2) Chest pain Current Visit: Yes Status: Acute Priority: High Code(s): R07.9 - CHEST PAIN, UNSPECIFIED SNOMED Code(s): 32637936 Plan: Chest pain: Presented to the emergency room with chest pain and nausea. Patient reports he began to have pain across her sternum that radiated to her upper back as well as associated nausea at which time she presented for further evaluation. -Upon admission chest x-ray showed no acute cardiopulmonary processes. D-dimer elevated at 3.63. CTA chest was subsequently obtained, negative for acute pulmonary embolism. Metastatic lesions to the right seventh lateral rib and known metastasis within the liver. -Serial troponins negative. BNP 514. Cardiology consulted, no plan for further intervention or workup at this time -Unsure etiology of sternal chest pain as CTA chest showing no metastasis to this area, but pain has improved since admit. She does report having a tightness around her lower chest which could be related to known progression of liver metastasis -Continue pain med regimen and supportive care measures. -Could consider repeat dotatate PET CT to better visualize for metastatic disease within the chest, but at this time, pt is considering palliative vs comfort care measures and to not pursue further treatment so will hold off on this for now Neuroendocrine carcinoma: -Oncology history as dictated in the HPI -She started cycle 1 of carboplatin/etoposide on 08/10/2023 with cycle 6 of treatment completed on 12/16/2023. -She has continued in f/u and restaging imaging. 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 Since biopsy she has had multiple admissions, for liver abscess and intractable pain. At her last clinic f/u on 10/22/24, Cabometyx was recommended but she was unsure about continuing any systemic treatment. She wanted to continue to recover physically and think about further treatment. -At todays visit further discussed treatment with cabometyx as well as palliaitve and comfort care measures. Pt states she does not think she wnats to pursue further systemic treatment but is not sure if she if she wants to consider comfort care. -Will continue to follow course of hospitalization and patient's decision in regards to resuming treatment vs palliative or hospice approach -Clinic f/u scheduled with Dr. Molly Stern on 12/12/24. Doctor attests: I performed a history and physical examination of this patient, developed impression and plan of care. Discussed with dictator. I agree with dictators note, documented as a scribe.
[2024-11-01] MEDS ORDERED: MELATONIN 5 MG TABLET PO SCH ×2 (21:00→23:29)
[2024-11-02 07:29] VITALS: BP 139/80; PULSE 83; RESP 16; TEMP 98.1
--- NOTE | 2024-11-02 09:00 | P.PN ---
Subjective Progress Note Date: 11/02/24 Consult reason: chest pain History of present illness: This is a 69-year-old female with no previous cardiac history and does not follow with a binder selector. 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 We have been asked to evaluate the patient for chest pain. Patient gives history of chest pain and nausea that was in the midsternal area and a little bit on the right-hand side. The pain had been going on for couple of days and also went straight through to the back. Blood pressure 151/90, heart rate in the 70s, pulse ox 96% on room air. -EKG: Sinus rhythm with no acute ST-T wave changes -Chest x-ray: No acute process. -CTA chest showed no pulmonary embolism. Metastatic lesions to the right seventh lateral rib and known metastasis within the liver. -Laboratory studies: CBC within normal limits. Troponin negative x 3. D-dimer 3.63. -Home cardiac medications: None 11/02/2024 Patient seen and examined. Echocardiogram is currently pending. Blood pressure 139/80, heart rate 83, pulse ox 95% on room air. Physical examination: Gen: This is a 69-year-old female in no acute distress VS: reviewed HEENT: Head is atraumatic, normocephalic. Pupils equal, round. Sclerae is anict mary ellen. NECK: Supple. No JVD. LUNGS: Clear to auscultation. No wheezes or rhonchi. No intercostal r etractions. HEART: Regular rate and rhythm. No murmur. Positive chest wall tenderness with palpation ABDOMEN: Soft No tenderness. EXTREMITIES: No pedal edema. No calf tenderness. NEUROLOGICAL: Patient is awake, alert and oriented x3. Assessment: Atypical chest pain, chest pain secondary to chest wall pain History of neuroendocrine tumor with metastatic disease Hypertension Plan: Continue patient on amlodipine 5 mg daily with parameters to hold if systolic blood pressure less than 120 Obtain 2-D echocardiogram and Doppler study to assess cardiac structure and function If echocardiogram is unremarkable, patient is cleared for discharge Thank you kindly for this consultation. Nurse practitioner note has been reviewed, I agree with documented findings and plan of care. Patient was seen and examined. Objective - Vital Signs Vital signs: Vital Signs Temp 98.1 F 11/02/24 07:00 Pulse 83 11/02/24 07:00 Resp 16 11/02/24 07:00 BP 139/80 11/02/24 07:00 Pulse Ox 95 11/02/24 07:00 FiO2 Intake & Output 11/01/24 11/02/24 11/02/24 18:59 06:59 18:59 Intake Total 10 360 Balance 10 360 Weight 63.503 kg Intake: IV 10 Invasive Line 1 10 Oral 360 Other: Voiding Method Toilet # Voids 3 2 # Bowel Movements 1 - Labs CBC & Chem 7: 11/01/24 02:58 11/02/24 05:47
[2024-11-02] MEDS ORDERED: HYDROmorphone 2 MG TAB PO PRN (10:21)
--- NOTE | 2024-11-02 10:22 | CA ---
Transthoracic Echo Report Name: Valerie Olvera Age: 69 Gender: F : 1955 Exam Date: 11/02/2024 07:52 Exam Location: [facility] Ht (in): 66 Wt (lb): 140 Ordering Physician: Nick Mitchell MD Attending/Referring Phys: Lining Sewer Ann Shipley RDCS Procedure CPT: Indications: Chest Pain Cardiac Hx: Cancer Technical Quality: Fair Contrast 1: Total Dose (mL): Contrast 2: Total Dose (mL): MEASUREMENTS (Male / Female) Normal Values 2D ECHO LV Diastolic Diameter PLAX 4.8 cm 4.2 - 5.9 / 3.9 - 5.3 cm LV Systolic Diameter PLAX 3.6 cm IVS Diastolic Thickness 1.0 cm 0.6 - 1.0 / 0.6 - 0.9 cm LVPW Diastolic Thickness 1.0 cm 0.6 - 1.0 / 0.6 - 0.9 cm LV Relative Wall Thickness 0.4 RV Internal Dim ED PLAX 1.8 cm LA Systolic Diameter LX 2.7 cm 3.0 - 4.0 / 2.7 - 3.8 cm LV Diastolic Volume MOD BP 38.0 cm??? 67 - 155 / 56 - 104 cm??? LV Systolic Volume MOD BP 18.8 cm??? 22 - 58 / 19 - 49 cm??? LV Ejection Fraction MOD BP 50.5 % >= 55 % LV Cardiac Index MOD BP 1036.5 cm???/min???m??? LV Diastolic Volume MOD 4C 43.9 cm??? LV Systolic Volume MOD 4C 16.4 cm??? LV Ejection Fraction MOD 4C 62.5 % LV Cardiac Index MOD 4C 1479.8 cm???/min???m??? LV Diastolic Length 4C 6.4 cm LV Systolic Length 4C 5.3 cm LV Diastolic Volume MOD 2C 32.0 cm??? LV Systolic Volume MOD 2C 20.6 cm??? LV Ejection Fraction MOD 2C 35.8 % LV Cardiac Index MOD 2C 618.6 cm???/min???m??? LV Diastolic Length 2C 6.2 cm LV Systolic Length 2C 5.6 cm LA Volume 16.8 cm??? 18 - 58 / 22 - 52 cm??? LA Volume Index 9.7 cm???/m??? 16 - 28 cm???/m??? M-MODE Aortic Root Diameter MM 2.7 cm LA Systolic Diameter MM 2.1 cm LA Ao Ratio MM 0.8 AV Cusp Separation MM 1.2 cm DOPPLER MV Area PHT 3.5 cm??? Mitral E Point Velocity 61.0 cm/s Mitral A Point Velocity 90.7 cm/s Mitral E to A Ratio 0.7 MV Deceleration Time 219.4 ms FINDINGS Left Ventricle Left ventricular ejection fraction is estimated at 50-55 %. Mildly increased septal wall thickness. Mildly decreased left ventricular ejection fraction. Left ventricular cavity size normal. No obvious regional wall motion abnormalities. Right Ventricle Normal right ventricular size and function. Right ventricular systolic pressure within normal limits. Right Atrium Normal right atrial size. Left Atrium Normal left atrial size. Mitral Valve Structurally normal mitral valve. Trace mitral regurgitation. No mitral stenosis. Aortic Valve Trileaflet aortic valve. No aortic valve stenosis or regurgitation. Tricuspid Valve Structurally normal tricuspid valve. Trace tricuspid regurgitation. No tricuspid stenosis. Pulmonic Valve Structurally normal pulmonic valve. Trace pulmonic regurgitation. No pulmonic stenosis. Pericardium No pericardial or pleural effusion. Aorta Normal size aortic root and proximal ascending aorta. CONCLUSIONS Normal LV size with fairly well-preserved systolic function and ejection fraction of about 50-55%. Mild mitral and tricuspid regurgitation. No pericardial effusion Previewed by: Dr. Vida Doshi MD (Electronically Signed) Final Date: 02 November 2024 10:21
[2024-11-02] MEDS: GABAPENTIN 300 MG CAP PO SCH (11:31)
--- NOTE | 2024-11-02 11:35 | P.DS ---
Providers Date of admission: 10/31/24 22:16 Attending physician: Deon Vanegas Consults: 10/31/24 22:15 Consult Physician Routine Consulting Provider: [facility] Consult Reason/Comments: chest pain Do you want consulting provider notified?: Yes 11/01/24 08:53 Consult Physician Routine Consulting Provider: Paula Stern Consult Reason/Comments: known ca pt Do you want consulting provider notified?: Yes Primary care physician: Herbie Albrecht DO Hospital Course: Patient is a pleasant 69-year-old female came in with complaints of chest pain in the midsternal area radiating to the back. Patient denied any shortness of breath denied any lightheadedness. She does have reproducible pain in the back patient's troponins are negative EKG did not show any acute ST-T wave changes cardiology evaluated the patient do not believe it is a cardiac chest pain patient had a CT of the chest which did not show any pulmonary embolism but showed metastatic lesions to the seventh lateral rib. Patient has a history of neuroendocrine tumor was on treatment but presently not receiving any treatment opted palliative care. Patient has not been taking her Dilaudid at home but does take gabapentin. 11/02/2024 Overnight events patient is otherwise clinically doing well is complaining of some crampy abdominal pain will be discharged today. Patient does not want [place] alcohol be discontinued. Patient is cleared by cardiology PHYSICAL EXAMINATION: GENERAL: The patient is alert and oriented x3, not in any acute distress. Well developed, well nourished. HEENT: Pupils are round and equally reacting to light. EOMI. No scleral icterus. No conjunctival pallor. Normocephalic, atraumatic. No pharyngeal erythema. No thyromegaly. CARDIOVASCULAR: S1 and S2 present. No murmurs, rubs, or gallops. PULMONARY: Chest is clear to auscultation, no wheezing or crackles. ABDOMEN: Soft, nontender, nondistended, normoactive bowel sounds. No palpable organomegaly. MUSCULOSKELETAL: No joint swelling or deformity. EXTREMITIES: No cyanosis, clubbing, or pedal edema. NEUROLOGICAL: Gross neurological examination did not reveal any focal deficits. SKIN: No rashes. Assessment and plan -Chest pain musculoskeletal secondary to mets to the chest wall. Rule out acute coronary syndromes cardiology evaluate patient no further recommendations from cardiology. 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 Palliative care will follow-up with the patient as an outpatient as w Patient Condition at Discharge: Stable Plan - Discharge Summary Discharge Rx Participant: No New Discharge Prescriptions: New Famotidine [Pepcid] 20 mg PO BID #30 tablet Ondansetron Odt [Zofran Odt] 4 mg PO Q8HR PRN #30 tab PRN Reason: Nausea And Vomiting Celecoxib [CeleBREX] 200 mg PO BID PRN #60 cap PRN Reason: Pain polyethylene glycoL 3350 [Miralax] 17 gm PO DAILY PRN #15 packet PRN Reason: Constipation amLODIPine [Norvasc] 5 mg PO DAILY #30 tab Continue Gabapentin 600 mg PO TID HYDROmorphone [Dilaudid] 2 mg PO Q3H PRN 3 Days #24 tab PRN Reason: Pain Discharge Medication List Gabapentin 600 mg PO TID 10/01/24 [History] HYDROmorphone [Dilaudid] 2 mg PO Q3H PRN 3 Days #24 tab 10/08/24 [Rx] Celecoxib [CeleBREX] 200 mg PO BID PRN #60 cap 11/01/24 [Rx] Famotidine [Pepcid] 20 mg PO BID #30 tablet 11/01/24 [Rx] Ondansetron Odt [Zofran Odt] 4 mg PO Q8HR PRN #30 tab 11/01/24 [Rx] amLODIPine [Norvasc] 5 mg PO DAILY #30 tab 11/01/24 [Rx] polyethylene glycoL 3350 [Miralax] 17 gm PO DAILY PRN #15 packet 11/01/24 [Rx] Follow up Appointment(s)/Referral(s): Paula Stern MD [STAFF PHYSICIAN] - 1 Week Herbie Albrecht DO [Primary Care Provider] - 3 Days [facility] [NON-STAFF] - As Needed Patient Instructions/Handouts: Chest Pain (DC) Discharge Disposition: HOME WITH HOME HEALTH SERVICES
[2024-11-02] MEDS: HYDROmorphone 2 MG TAB PO PRN (12:07)
--- NOTE | 2024-11-02 14:48 | P.PN ---
Subjective Progress Note Date: 11/02/24 Pt reports chest pain now resolved. C/o intermittent abdominal cramping and constipation, which has been acute on chronic for her. Last BM 3 days ago. Having intermittent nausea but denies vomiting. Appetite diminished Objective - Vital Signs Vital signs: Vital Signs Temp 98.1 F 11/02/24 07:00 Pulse 83 11/02/24 07:00 Resp 16 11/02/24 07:00 BP 139/80 11/02/24 07:00 Pulse Ox 95 11/02/24 07:00 FiO2 Intake & Output 11/01/24 11/02/24 11/02/24 18:59 06:59 18:59 Intake Total 10 360 Balance 10 360 Weight 63.503 kg Intake: IV 10 Invasive Line 1 10 Oral 360 Other: Voiding Method Toilet # Voids 3 2 # Bowel Movements 1 - Constitutional General appearance: Present: average body habitus, no acute distress - EENT Eyes: Present: anicteric sclerae, EOMI ENT: Present: hearing grossly normal - Respiratory Details: breathing is even and unlabored - Cardiovascular Details: skin warm and dry - Integumentary Integumentary: Absent: cyanotic - Musculoskeletal Musculoskeletal: Present: strength equal bilaterally - Psychiatric Psychiatric: Present: A&O x's 3 - Labs CBC & Chem 7: 11/01/24 02:58 11/02/24 05:47 Assessment and Plan (1) Neuroendocrine carcinoma Status: Acute Priority: High Code(s): C7A.8 - OTHER MALIGNANT NEUROENDOCRINE TUMORS SNOMED Code(s): 366819230 (2) Chest pain Status: Acute Priority: High Code(s): R07.9 - CHEST PAIN, UNSPECIFIED SNOMED Code(s): 36656462 Plan: Chest pain: Presented to the emergency room with chest pain and nausea. Patient reports he began to have pain across her sternum that radiated to her upper back as well as associated nausea at which time she presented for further evaluation. -Upon admission chest x-ray showed no acute cardiopulmonary processes. D-dimer elevated at 3.63. CTA chest was subsequently obtained, negative for acute pulmonary embolism. Metastatic lesions to the right seventh lateral rib and known metastasis within the liver. -Serial troponins negative. BNP 514. Cardiology consulted. Echo showing EF 50- 55%, no pericardial effusion -Unsure etiology of sternal chest pain as CTA chest showing no metastasis to this area, but pain has now resolved. She does report having a tightness around her lower chest which could be related to known progression of liver metastasis -Continue pain med regimen and supportive care measures. Palliative care has met with patient and will establish care upon discharge home -Could consider repeat dotatate PET CT to better visualize for metastatic disease within the chest, but at this time, pt has decided to d/c further cancer treatment and will be following with palliative care Neuroendocrine carcinoma: -Oncology history as dictated in the HPI -She started cycle 1 of carboplatin/etoposide on 08/10/2023 with cycle 6 of treatment completed on 12/16/2023. -She has continued in f/u and restaging imaging. 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 Since biopsy she has had multiple admissions, for liver abscess and intractable pain. At her last clinic f/u on 10/22/24, Cabometyx was recommended but she was unsure about continuing any systemic treatment. She wanted to continue to recover physically and think about further treatment. -At todays visit we further discussed treatment with cabometyx as well as palliative and comfort care measures. Pt states that she has spoke with her family and has made the decision to discontinue cancer treatment and wants to be discharged home with palliative care. Residential palliative care has met with the pt, and plans to establish care in her home upon discharge Had long discussion with pt and spouse today regarding palliative care approach as well as supportive care measures and nutrition education -Pt requesting us to cancel upcoming staging CT CAP. She will keep f/u with Dr. Molly Stern on 12/10/24 for now
== END 2024-11-02 12:58 | disposition home health service (06) ==
LOC: EC 19:20 → 1SOBS 22:16 → 6NMEDSUR 11-01 00:07
PROVIDERS: ADMIT Hospitalist; ATTEND Hospitalist
DX: R07.89 Other chest pain (principal); C7B.8 Other secondary neuroendocrine tumors; I10 Essential (primary) hypertension; Z85.3 Personal history of malignant neoplasm of breast; Z87.891 Personal history of nicotine dependence; Z92.21 Personal history of antineoplastic chemotherapy; Z92.3 Personal history of irradiation; Z79.1 Long term (current) use of non-steroidal anti-inflammatories (NSAID); Z79.899 Other long term (current) drug therapy; Z88.5 Allergy status to narcotic agent
CPT/HCPCS: 96376 ×3; 96374; 96375; 99285; 36415; 93005; 93306; 85379; 83880; 80053 ×2; 83735; 84132; 84484 ×2; 85025 ×2; 85610; 85730; 71046; 71275; G0378 ×3; J1644 ×3; J2405 ×2; J1885 ×3; Q9967